=== PATIENT | female | born 1935 | race Caucasian/White ===

== ENCOUNTER 2016-05-16 12:20 | Inpatient (IN) | payer MEDICARE, OTHER ==
[~2016-05-16] VITALS: Ht 160 cm; Wt 94.3 kg
[~2016-05-16 12:20] MED LIST: ACET-62 PO; FURO20TA4 PO; LATA2.5D7 BOTH EYES; LEVO75TA58 PO; LISI-621 PO; METO-68 PO; OMEP20CA81 PO; OXYC1TAB8 PO; PRAV40TA46 PO; TRAM50TA4 PO; UBID200C8 PO; VERA360C2 PO; WARF5TAB6 PO; WARF5TAB76 PO
--- OUTSIDE RECORDS SUMMARY | 2016-05-16 12:29 | XMS REPORT | Continuity of Care Document ---
Author Author [facility] Organization [facility] Address Unknown Phone Unavailable Support Name Relationship Address Phone DARWIN HOOK MD Caregiver [facility] [address] [facility] [place] [address] LOPEZ NAVARRO DO Caregiver [address] [place] [address] AARON ESPARZA Caregiver [address] [place] [address] STACIE CARPIO MD Caregiver [address] [place] [address] [address] [place] [address] ELIZABETH OVIEDO Next Of Kin [address] [place] [id number] Insurance Providers Payer Name Policy Number Subscriber Name Relationship Medicare [id number] Juana Oviedo 16 Self [place] [id number] Juana Oviedo 16 Self Advance Directives Directive Response Recorded Date/Time Ordered Resuscitation Status Full Code 02/17/14 11:00pm Resuscitation Documents on File No 02/18/14 12:03am Chief Complaint and Reason for Visit Chief Complaint GI BLEED AND WARFARIN COAGULOPATHY Reason for Visit GI bleed Warfarin-induced coagulopathy GI bleed Hypothyroidism Chronic atrial fibrillation Pacemaker History of breast cancer Obesity (BMI 30.0-34.9) Anemia Hypertension Paroxysmal atrial fibrillation Dyslipidemia Problems Medical Problems Problem Onset Date Status GI bleed Unknown Active Warfarin-induced coagulopathy Unknown Active GI bleed Unknown Active Hypothyroidism Unknown Active Chronic atrial fibrillation Unknown Active Pacemaker Unknown Active History of breast cancer Unknown Active Obesity (BMI 30.0-34.9) Unknown Active Anemia Unknown Active Hypertension Unknown Active Paroxysmal atrial fibrillation Unknown Active Dyslipidemia Unknown Active Medications Medication Dose Route Sig Days/Qty Instructions Order Date Discontinued Date Status Aspirin 81 Mg PO BEDTIME 12/12/08 02/19/10 Discontinued Diphenhydramine Hcl 1 Ml PO NEEDED 11/16/08 12/11/08 Discontinued Ubidecarenone 200 Mg PO DAILY 12/12/08 02/19/10 Discontinued Carvedilol 25 Mg PO TWICE A DAY 11/16/08 12/11/08 Discontinued Lisinopril 2.5 Mg PO DAILY 11/16/08 12/11/08 Discontinued Guaifenesin 600 Mg PO NEEDED 11/16/08 12/11/08 Discontinued Oxybutynin Chloride 5 Mg PO DAILY 12/12/08 02/19/10 Discontinued Pravastatin Sodium 20 Mg PO DAILY 12/12/08 02/19/10 Discontinued Omeprazole 20 Mg PO DAILY 12/12/08 02/19/10 Discontinued Levothyroxine Sodium 50 Mcg PO DAILY 12/12/08 02/19/10 Discontinued Travoprost 2.5 Ml OP DAILY 12/12/08 02/19/10 Discontinued Acetaminophen 325 Mg PO NEEDED 12/12/08 02/19/10 Discontinued Multivitamins 1 Tab PO DAILY 12/12/08 02/19/10 Discontinued Lisinopril/Hydrochlorothiazide 1 Tab PO DAILY 12/12/08 02/19/10 Discontinued Meclizine Hcl 25 Mg PO FOUR TIMES DAILY 12/12/08 02/19/10 Discontinued Acetaminophen With Codeine 1 Tab PO FOUR TIMES DAILY 02/19/10 Discontinued Meclizine Hcl 1 Tab PO BEDTIME 02/19/10 07/19/10 Discontinued Aspirin 1 Tab PO DAILY 02/19/10 08/23/12 Discontinued Ubidecarenone 1 Cap PO BEDTIME 02/19/10 08/24/12 Discontinued Levothyroxine Sodium 1 Tab PO DAILY 02/19/10 Active Metoprolol Tartrate 1 Tab PO TWICE A DAY 02/19/10 08/24/12 Discontinued Multivitamins 1 Tab PO DAILY 02/19/10 Active Omeprazole 1 Cap PO DAILY 02/19/10 Active Pravastatin Sodium 1 Tab PO BEDTIME 02/19/10 08/24/12 Discontinued Cyclosporine 1 Drop OP BEDTIME 02/19/10 08/23/12 Discontinued Ergocalciferol 1 Cap PO DAILY 02/19/10 07/19/10 Discontinued Magnesium Oxide 1 Cap PO DAILY 02/19/10 07/19/10 Discontinued Zinc 1 Tab PO DAILY 02/19/10 07/19/10 Discontinued Acetaminophen 1,000 Mg PO TWICE A DAY 1000MG AT HS 07/19/10 Active [Vit B6] 1 PO DAILY 07/19/10 08/23/12 Discontinued Ubidecarenone 200 Mg PO DAILY 08/24/12 Active Calcium Carbonate/Vitamin D3 1 Udtab PO DAILY 08/24/12 Active Metoprolol Tartrate 50 Mg PO TWICE A DAY 08/24/12 Active Pravastatin Sodium 40 Mg PO BEDTIME 08/24/12 Active Verapamil Hcl 180 Mg PO BEDTIME 08/24/12 02/17/14 Discontinued Verapamil HCl 720 Mg PO DAILY 02/17/14 02/19/14 Discontinued Anastrozole DAILY 02/17/14 Active Calcium Carbonate 1,000 Mg PO CHEW DAILY 02/17/14 Active Furosemide 1 Tab PO DAILY 02/17/14 Active Latanoprost 1 Drop BOTH EYES BEDTIME 02/17/14 Active Lisinopril 10 Mg PO BEDTIME 02/17/14 02/19/14 Discontinued Cyclosporine 1 Drop BOTH EYES Q12H 02/17/14 Active Cyanocobalamin (Vitamin B-12) 2 Tab PO DAILY 02/17/14 Active Warfarin Sodium 5 Mg PO DAILY Take 1 tablet, by mouth, 1 time a day (at 5 pm). 02/17/14 02/19/14 Discontinued Verapamil HCl 240 Mg PO DAILY 30 Qty 02/19/14 Active Ferrous Sulfate 1 Tab PO GIVE WITH BREAKFAST For anemia 30 Days Active Ascorbic Acid 1 Tab PO DAILY For anemia 30 Days 02/19/14 Active Lisinopril 20 Mg PO BEDTIME 30 Days 02/19/14 Active Social History Social History Problem Response Recorded Date/Time Chewing Tobacco Status No 08/23/2012 11:53am Hx Substance Use No 02/17/2014 10:14pm Hx Alcohol Use No 02/17/2014 10:14pm Has the pt used tobacco in the last 12 months No 02/18/2014 12:06am Query Response Start Date Stop Date Smoking Status Never smoker Hospital Discharge Instructions Instructions: Care Instructions: Reason for Hospitalization: Warfarin induced coagulopathy with elevated INR I was in the hospital because (patient own words): "RECTAL BLEEDING" Discharge Diet: Heart Heathy diet Discharge Activity: As tolerated Follow Up Appointments: Jane Fleming in [address] Hook in 4 weeks Condition at time of discharge: Good Good Notify Physician If: Short of breath or not eating Condition at time of discharge: Fair Condition at time of discharge: Good Plan of Care Discharge Date 02/19/14 9:05pm Disposition 01 DISCHARGED HOME, SELF-CARE Instructions/Education Provided DI for Gastrointestinal Bleeding Prescriptions See Medications Section Functional Status Query Response Date Recorded Physical Hygiene Self February 17, 2014 10:14pm Disabilities None February 17, 2014 11:17pm Devices Used Glasses February 17, 2014 11:17pm Dressing Self February 17, 2014 10:14pm Ambulation Self February 17, 2014 10:14pm Diet Self February 17, 2014 10:14pm Mental Status Alert February 17, 2014 11:17pm Disabilities None February 17, 2014 11:17pm Devices Used Glasses February 17, 2014 11:17pm Physical Hygiene Self February 17, 2014 10:14pm Dressing Self February 17, 2014 10:14pm Ambulation Self February 17, 2014 10:14pm Diet Self February 17, 2014 10:14pm Allergies, Adverse Reactions, Alerts Allergen Type Severity Reaction Status Last Updated metoclopramide HCl Adverse Reaction Unknown MAKES ME OUT OF MY MIND Active 02/17/14 Sulfa (Sulfonamide Antibiotics) Allergy Unknown Active 02/17/14 Morphine Allergy Unknown Active 02/17/14 Hydrocodone Adverse Reaction Intermediate VOMITING Active 02/17/14 Immunizations Name Given Type Hx Influenza Vaccination Y 01/2014 "HIGHER DOSAGE" Historical Hx Pneumococcal Vaccination Y "ONE DOSE MORE THAN FIVE YEARS AGO" Historical Hx Influenza Vaccination Y 01/2014 "HIGHER DOSAGE" Historical Vital Signs Acute Vital Signs Vital Response Date/Time Temperature (Fahrenheit) 97.9 deg F (96.8 - 99.1) Temperature (Calculated Celsius) 36.88750 degrees C (36.0 - 37.3) Temperature Source Temporal Height 5 ft 3.5 in Weight 199 lb Body Mass Index 34.0 kg/m^2 Results Test Source Date Result Interp. Ref. Range Comments 25-Hydroxy Vitamin D Total November 23, 2013 10:56am 49 ng/mL - The desirable level of 25-Hydroxy Vitamin D Total(D2 + D3) is 30-74 ng/mL.A level consistently >200 is potentially toxic. Vitamin D, 25-Hydroxy performed at [facility] Reference [facility], [address] [place] [address] Stock Associate Lilly Aceves MD 25-Hydroxy Vitamin D2 November 23, 2013 10:56am <7 ng/mL - 25-Hydroxy Vitamin D3 November 23, 2013 10:56am 49 ng/mL - Activated Partial Thromboplast Time December 12, 2008 9:05am 32.7 SEC N 25-36 COM[place]U [place] 0810 Alanine Aminotransferase (ALT/SGPT) February 17, 2014 9:41pm 39 U/L N 9- 52 Albumin February 17, 2014 9:41pm 4.1 G/DL N 3.5-5.0 Albumin/Globulin Ratio February 17, 2014 9:41pm 1.4 RATIO N 1.1-2.2 Alkaline Phosphatase February 17, 2014 9:41pm 121 U/L N 38-126 Amylase Level February 17, 2014 9:41pm 140 U/L H 30-110 Anion Gap February 19, 2014 4:45am 4 MEQ/L L 5-15 Anisocytosis February 18, 2014 8:18am 1+ - Aspartate Amino Transf (AST/SGOT) February 17, 2014 9:41pm 25 U/L N 14- 36 B-Type Natriuretic Peptide November 16, 2008 8:58pm 89 PG/ML N 15-100 BUN/Creatinine Ratio February 19, 2014 4:45am 11 RATIO N 6-26 Band Neutrophils # February 18, 2014 8:18am 0.3 T/MM3 - Band Neutrophils % February 18, 2014 8:18am 3.0 % N 0-6 Basophils # (Auto) February 19, 2014 4:45am 0.0 T/MM3 N 0-0.2 Basophils # (Manual) May 06, 2010 1:35pm 0.1 T/MM3 N 0-0.2 Basophils % (Manual) May 06, 2010 1:35pm 1.0 % N 0-2 Basophils (%) (Auto) February 19, 2014 4:45am 0.3 % N 0-2 Blood Urea Nitrogen February 19, 2014 4:45am 11.0 MG/DL N 7-17 CA 27.29 November 23, 2013 10:56am 23.31 U/ML N 0-37.7 Calcium Level February 19, 2014 4:45am 9.2 MG/DL N 8.4-10.2 Calculated Osmolality February 19, 2014 4:45am 270 MOSM/KG N 261-280 Carbon Dioxide Level February 19, 2014 4:45am 26 MEQ/L N 22-30 Chemistry Specimen Hemolysis February 19, 2014 4:45am < 15 0-25 0-25 : No Hemolysis.26-70: Slight Hemolysis - can falsely elevate K and Urine Protein. 71-285: Moderate Hemolysis - can falsely elevate K, Troponin I, CA 19-9, PTH, CSF GLucose, and Urine Protein, and can falsely decrease Phenytoin. 286-999: Gross Hemolysis - can falsely elevate K, Troponin I, CA 19-9, PTH, CSF Glucose, and Urine Protine, and can falsely decrease Phenytoin. Recommend specimen recollection. Chloride Level February 19, 2014 4:45am 111 MEQ/L DH 98-107 Conjugated Bilirubin November 23, 2013 10:56am 0.00 MG/DL N 0.00-0.30 Creatinine February 19, 2014 4:45am 1.0 MG/DL N 0.7-1.2 Differential Total Cells Counted June 10, 2010 9:45am 100 % - EKG December 14, 2008 2:01pm Complete - COMMENT EKG WITH AND WITHOUT MAGNET WITHIN THIS HOUR Eosinophils # (Auto) February 19, 2014 4:45am 0.1 T/MM3 N 0-0.5 Eosinophils # (Manual) February 18, 2014 8:18am 0.1 T/MM3 N 0-0.5 Eosinophils % (Manual) February 18, 2014 8:18am 1.0 % N 0-4 Eosinophils (%) (Auto) February 19, 2014 4:45am 1.2 % N 0-4 Free Thyroxine February 19, 2010 1:45pm 1.48 NG/DL N 0.78-2.19 Globulin February 17, 2014 9:41pm 2.9 G/DL N 2.4-3.6 Glomerular Filtration Rate Calc February 19, 2014 4:45am 53 - Glucose Level February 19, 2014 4:45am 101 MG/DL N 65-110 Hematocrit February 19, 2014 4:45am 33.6 % DL 36-46 Hemoglobin February 19, 2014 4:45am 10.6 GM/DL DL 12-16 Icterus Index February 19, 2014 4:45am < 2 0-7 Immature Granulocyte # (Auto) February 19, 2014 4:45am 0.01 T/MM3 N 0.00 -0.03 Immature Granulocyte % (Auto) February 19, 2014 4:45am 0.1 % N 0.0-0.5 Lab Scanned Report December 14, 2013 3:09pm LAB TEST FORM REQUEST [id number] - Lipase February 17, 2014 9:41pm 125 U/L N 23-300 Lymphocytes # (Auto) February 19, 2014 4:45am 1.2 T/MM3 N 1-4.8 Lymphocytes # (Manual) February 18, 2014 8:18am 1.1 T/MM3 N 1-4.8 Lymphocytes % (Manual) February 18, 2014 8:18am 10.0 % L 23-45 Lymphocytes (%) (Auto) February 19, 2014 4:45am 15.9 % L 23-45 Magnesium Level November 18, 2011 10:00am 1.8 MG/DL N 1.6-2.3 Mean Corpuscular Hemoglobin February 19, 2014 4:45am 33.5 UUG N 26-34 Mean Corpuscular Hemoglobin Concent February 19, 2014 4:45am 31.5 GM/DL N 31-37 Mean Corpuscular Volume February 19, 2014 4:45am 106.3 UM3 H 80-100 Mean Platelet Volume February 19, 2014 4:45am 11.1 UM3 N 9.4-12.4 Metamyelocytes # April 22, 2010 11:05am 0.5 T/MM3 - Metamyelocytes % April 22, 2010 11:05am 3.0 % H 0-0 Monocytes # (Auto) February 19, 2014 4:45am 1.0 T/MM3 H 0-0.8 Monocytes # (Manual) February 18, 2014 8:18am 1.1 T/MM3 H 0-0.8 Monocytes % (Manual) February 18, 2014 8:18am 10.0 % H 0-9.0 Monocytes (%) (Auto) February 19, 2014 4:45am 13.0 % H 0-9.0 Neutrophils # (Auto) February 19, 2014 4:45am 5.1 T/MM3 N 1.8-7.7 Neutrophils # (Manual) February 18, 2014 8:18am 8.1 T/MM3 H 1.8-7.7 Neutrophils % (Manual) February 18, 2014 8:18am 74.0 % H 33-66 Neutrophils (%) (Auto) February 19, 2014 4:45am 69.5 % H 33-66 Phosphorus Level November 18, 2011 10:00am 3.2 MG/DL N 2.5-4.5 Platelet Count February 19, 2014 4:45am 195 T/MM3 N 130-400 Platelet Evaluation (Diff) April 20, 2011 1:10pm Few - Potassium Level February 19, 2014 4:45am 3.9 MEQ/L N 3.6-5 Prothromb Time International Ratio February 19, 2014 4:45am 3.58 H 0.81- 1.09 THERAPUTIC RANGE=2.00-3.00 FOR ANTI-THROMBOSIS THERAPUTIC RANGE=2.50- 3.50 FOR IMPLANTED VALVE RDW Standard Deviation February 19, 2014 4:45am 54.7 FL H 36.9-50.2 Reactive Lymphocytes # February 18, 2014 8:18am 0.2 T/MM3 H 0-0 Reactive Lymphocytes % February 18, 2014 8:18am 2.0 % H 0-0 Red Blood Count February 19, 2014 4:45am 3.16 M/MM3 L 4.00-5.20 Sodium Level February 19, 2014 4:45am 141 MEQ/L N 134-144 Tear Drop Cells May 06, 2010 1:35pm 1+ - Tests Not Done November 16, 2008 9:50pm Not done - Has specimen been collected/obtained? Y Thyroid Stimulating Hormone (TSH) February 19, 2010 1:45pm 1.17 MIU/ML N 0.47-4.68 Total Bilirubin February 17, 2014 9:41pm 0.80 MG/DL N 0.20-1.30 Total Protein February 17, 2014 9:41pm 7.0 G/DL N 6.3-8.2 Troponin I December 14, 2008 8:00pm 0.014 ng/ml N 0-0.12 Turbidity February 19, 2014 4:45am < 20 0-20 Unconjugated Bilirubin November 23, 2013 10:56am 0.20 MG/DL N 0.00- 1.10 Urine Amorphous Urates February 19, 2010 1:38pm Few - Has specimen been collected/obtained? Y Urine Bacteria February 17, 2014 9:51pm None seen - Has specimen been collected/obtained? Y Urine Bilirubin February 17, 2014 9:51pm 1+ H - Has specimen been collected/obtained? Y Urine Blood February 17, 2014 9:51pm 3+ H - Has specimen been collected /obtained? Y Urine Collection Type February 17, 2014 9:51pm Voided-not cc-midstr - Has specimen been collected/obtained? Y Urine Color February 17, 2014 9:51pm Natalia - Has specimen been collected/obtained? Y Urine Culture Indicated February 19, 2010 1:38pm Cult not set up - Has specimen been collected/obtained? Y Urine Glucose (UA) February 17, 2014 9:51pm Negative - Has specimen been collected/obtained? Y Urine Hyaline Casts February 17, 2014 9:51pm 5-10 /LPF - Has specimen been collected/obtained? Y Urine Ketones February 17, 2014 9:51pm Trace H - Has specimen been collected/obtained? Y Urine Leukocyte Esterase February 17, 2014 9:51pm Negative - Has specimen been collected/obtained? Y Urine Mucus February 17, 2014 9:51pm Present - Has specimen been collected/obtained? Y Urine Nitrite February 17, 2014 9:51pm Negative - Has specimen been collected/obtained? Y Urine Protein February 17, 2014 9:51pm Trace H - Has specimen been collected/obtained? Y Urine RBC February 17, 2014 9:51pm 10-20 /HPF H - Has specimen been collected/obtained? Y Urine Specific [place] February 17, 2014 9:51pm 1.020 - Has specimen been collected/obtained? Y Urine Squamous Epithelial Cells February 17, 2014 9:51pm None seen - Has specimen been collected/obtained? Y Urine Turbidity February 17, 2014 9:51pm Sl cloudy - Has specimen been collected/obtained? Y Urine Urobilinogen February 17, 2014 9:51pm 1.0 EU/DL - Has specimen been collected/obtained? Y Urine WBC February 17, 2014 9:51pm 0-1 /HPF - Has specimen been collected/obtained? Y Urine pH February 17, 2014 9:51pm 6.0 - Has specimen been collected/ obtained? Y White Blood Count February 19, 2014 4:45am 7.3 T/MM3 N 4.5-11.0 Procedures Procedure Status Date Provider(s) DRAIN/INJECT JOINT/BURSA completed 02/01/14 JERRY MACIAS MD NEEDLE LOCALIZATION BY XRAY completed 02/01/14"INJECTION, METHYLPREDNISOLONE ACETATE, 80 MG" completed 02/01/14"LOW OSMOLAR CONTRAST MATERIAL, 300-399 MG/ML IODINE C completed Encounters Encounter Location Date/Time Discharged Inpatient [facility] 02/17/14 10:46pm Registered Clinic [facility] 02/01/14 9:44am Registered Clinic [facility] 12/14/13 8:46am Registered Clinic [facility] 12/07/13 8:22am Registered Clinic [facility] 11/23/13 11:01am Recent Diagnosis GI bleed Warfarin-induced coagulopathy GI bleed Hypothyroidism Chronic atrial fibrillation Pacemaker History of breast cancer Obesity (BMI 30.0-34.9) Anemia Hypertension Paroxysmal atrial fibrillation Dyslipidemia
--- OUTSIDE RECORDS SUMMARY | 2016-05-16 12:32 | XMS REPORT | Continuity of Care Document ---
Author Author [facility] Organization [facility] Address Unknown Phone Unavailable Support Name Relationship Address Phone JONATHAN WALLACE DO Caregiver [address] [place] [address] Unavailable KARIME NY DO Caregiver [address] [place] [address] Unavailable ELIZABETH OVIEDO Next Of Kin [address] [place] [id number] Insurance Providers Guarantor ArtemioJuana Address [address] [place] [address] Email DENIED 05-09-16 Payer [place] Policy Number [id number] Subscriber's Name Kat Oviedonelson Resendiz Relationship 18 Self Group Number PLANE Effective Date 03 Payer Medicare Policy Number [id number] Subscriber's Name Kat Oviedojorie Astrid Relationship 18 Self Effective Date 98 Advance Directives Directive Response Recorded Date/Time Advanced Directives Type None 05/09/16 11:55am Chief Complaint and Reason for Visit Chief Complaint Neck Pain Reason for Visit Neck pain on left side Problems Active Problems Medical Problem Onset Date Status Chronic atrial fibrillation Unknown Chronic Degenerative arthritis of left knee Unknown Dyslipidemia Unknown Chronic History of breast cancer Unknown Chronic Hypertension Unknown Acute Hypothyroidism Unknown Chronic LATISHA (obstructive sleep apnea) Unknown Obesity (BMI 30.0-34.9) Unknown Chronic Pacemaker Unknown Chronic Past Problems Medical Problem Onset Date Anemia Unknown Contusion Unknown Degenerative arthritis of right knee Unknown GI bleed Unknown GI bleed Unknown Hematoma of leg Unknown Neck pain on left side Unknown Paroxysmal atrial fibrillation Unknown Warfarin-induced coagulopathy Unknown Medications Current Home Medications Medication Dose Units Route Directions Days Qty Instructions Start Date Acetaminophen 500 Mg Tablet 500 Mg Oral Every 6 Hours as needed for Pain 05/09/16 Furosemide 20 Mg Tablet 20-40 Mg Oral Daily 05/09/16 Latanoprost 2.5 Ml Drops 1 Drop Both Eyes Bedtime 02/17/14 Levothyroxine Sodium 75 Mcg Tablet 75 Mcg Oral Daily 02/19/10 Lisinopril 20 Mg Tablet 40 Mg Oral Daily 01/15/16 Metoprolol Tartrate 50 Mg Tablet 50 Mg Oral Twice A Day 08/24/12 Omeprazole (Prilosec) 20 Mg Capsule.dr 20 Mg Oral Daily 02/19/10 Oxycodone Hcl/Acetaminophen (Percocet 5-325 Mg Tablet) 5-325 Tablet 1-2 Tab Oral Every 4-6 Hours Prn as needed for Pain 20 Tablet Take 1 tablet, by mouth, every 4 hours as needed for pain. 05/09/16 Pravastatin Sodium 40 Mg Tablet 60 Mg Oral Bedtime 08/24/12 Tramadol Hcl 50 Mg Tablet 50-100 Mg Oral Q6h/0300,0900,1500,2100 as needed for Pain 05/09/16 Ubidecarenone (Co Q-10) 200 Mg Capsule 200 Mg Oral Daily 08/24/12 Verapamil Hcl 360 Mg Capsule 360 Mg Oral Daily 06/14/15 Warfarin Sodium (Coumadin) 5 Mg Tablet 10 Mg Oral Twice A Week WED & ALBERT 06/14/15 Warfarin Sodium 5 Mg Tablet 5 Mg Oral 5 Times A Week SUN,MON,WED,FRI ,SAT 05/09/16 Past Home Medications Medication Directions Ordered Status Acetaminophen (Tylenol) 500 Mg Tablet, 1000 Mg Oral Twice A Day 07/19/10 Discontinued Acetaminophen (Tylenol) 325 Mg Tablet, 325 Mg Oral As Needed 12/12/08 Discontinued Acetaminophen With Codeine (Tylenol-Codeine #3 Tablet) 1 Tab Tablet, 1 Tab Oral Four Times Daily 02/19/10 Discontinued Aspirin 81 Mg Tablet, 1 Tab Oral Daily 02/19/10 Discontinued Aspirin (Apoorva) 81 Mg Tablet.dr, 81 Mg Oral Bedtime 12/12/08 Discontinued Carvedilol (Coreg) 25 Mg Tablet, 25 Mg Oral Twice A Day 11/16/08 Discontinued Cyclosporine (Restasis) 32 Ea Droperette, 1 Drop Ophthalmic Bedtime 02/19/10 Discontinued Diphenhydramine Hcl (Benadryl) 1 Ml Liquid, 1 Ml Oral As Needed 11/16/08 Discontinued Ergocalciferol (Vitamin D) 50,000 Unit Capsule, 1 Cap Oral Daily 02/19/10 Discontinued Guaifenesin (Mucinex) 600 Mg Tablet.sa, 600 Mg Oral As Needed 11/16/08 Discontinued Levothyroxine Sodium (Synthroid) 50 Mcg Tablet, 50 Mcg Oral Daily 12/12/08 Discontinued Lisinopril 10 Mg Tablet, 10 Mg Oral Bedtime 02/17/14 Discontinued Lisinopril 2.5 Mg Tablet, 2.5 Mg Oral Daily 11/16/08 Discontinued Lisinopril/Hydrochlorothiazide (Lisinopril-Hctz 12/24.5 Tab) 1 Tab Tablet, 1 Tab Oral Daily 12/12/08 Discontinued Magnesium Oxide (Magnesium) 500 Mg Capsule, 1 Cap Oral Daily 02/19/10 Discontinued Meclizine Hcl (Antivert) 25 Mg Tablet, 1 Tab Oral Bedtime 02/19/10 Discontinued Meclizine Hcl 25 Mg Tablet, 25 Mg Oral Four Times Daily 12/12/08 Discontinued Metoprolol Tartrate 25 Mg Tablet, 1 Tab Oral Twice A Day 02/19/10 Discontinued Multivitamins (Vitamin A Day) 1 Tab Tablet, 1 Tab Oral Daily 12/12/08 Discontinued Omeprazole (Prilosec) 20 Mg Capsule.dr, 20 Mg Oral Daily 12/12/08 Discontinued Oxybutynin Chloride 5 Mg Tablet, 5 Mg Oral Daily 12/12/08 Discontinued Pravastatin Sodium 20 Mg Tablet, 1 Tab Oral Bedtime 02/19/10 Discontinued Pravastatin Sodium (Pravachol) 20 Mg Tablet, 20 Mg Oral Daily 12/12/08 Discontinued Prednisone 20 Mg Tablet, 2 Tab Oral Twice A Day 06/14/15 Discontinued Travoprost (Travatan Z) 2.5 Ml Drops, 2.5 Ml Ophthalmic Daily 12/12/08 Discontinued Ubidecarenone (Coq-10) 100 Mg Capsule, 1 Cap Oral Bedtime 02/19/10 Discontinued Ubidecarenone (Co Q-10) 200 Mg Capsule, 200 Mg Oral Daily 12/12/08 Discontinued Verapamil Hcl 360 Mg Capsule, 720 Mg Oral Daily 02/17/14 Discontinued Verapamil Hcl (Verapamil Er) 180 Mg Tablet.er, 180 Mg Oral Bedtime 08/24/12 Discontinued Vit B6 , 1 Oral Daily 07/19/10 Discontinued Warfarin Sodium 5 Mg Tablet, 5 Mg Oral Daily 02/17/14 Discontinued Zinc 50 Mg Tablet, 1 Tab Oral Daily 02/19/10 Discontinued Social History Social History Problem Response Recorded Date/Time Onset Date Status Chewing Tobacco Status No 08/23/2012 11:53am Not Applicable Not Applicable Hx Substance Use No 05/09/2016 12:35pm Not Applicable Not Applicable Hx Alcohol Use Y SOCIAL 05/09/2016 12:35pm Not Applicable Not Applicable Has the pt used tobacco in the last 12 months No 01/23/2016 7:30am Not Applicable Not Applicable Query Response Start Date Stop Date Smoking Status Never smoker Hospital Discharge Instructions No hospital discharge instructions. Plan of Care Discharge Date 05/09/16 4:37pm Disposition 01 DISCHARGED HOME, SELF-CARE Condition at Discharge Improved Instructions/Education Provided Musculoskeletal Pain (ED) Acute Neck Pain (ED) Prescriptions See Medication Section Referrals KARIME NY DO Address: [address] [phone] Additional Instructions/Education Your neck pain is musculoskeletal in nature. You may take Percocet 5/325mg tab 1 to 2 tabs every 4-6 hours as needed for pain. This medication may cause drowsiness so avoid driving, operating heavy machinery or drinking alcohol while taking. This medication may cause constipation so you may need to take a stool softener. Do not take tramadol in addition to Percocet. You may use heat to your neck and shoulder muscles to help with pain. It may take several days for your symptoms to resolve, if they are not improving follow with your PCP next week. Follow treatment plan. Care Plan and Goals Physician Care Plan Problem: Left sided neck pain Goal: Follow up with primary care provider as discussed Instructions: Take medications and follow care plan as discussed/written Functional Status No functional status results. Allergies, Adverse Reactions, Alerts Allergen Type Severity Reaction Status Last Updated metoclopramide HCl Adverse Reaction Unknown AGITATED, ANXIOUS Active 01/14 Sulfa (Sulfonamide Antibiotics) Adverse Reaction Unknown STOMACH HURTS Active 01/15/16 Morphine Allergy Unknown HALLUCINATION Active 01/15/16 Hydrocodone Adverse Reaction Intermediate VOMITING Active 06/21/15 Sulfamethoxazole Adverse Reaction Unknown STOMACH HURTS Active 01/15/16 Trimethoprim Adverse Reaction Unknown STOMACH HURTS Active 01/15/16 Immunizations Query Response on File Recorded Date/Time Hx Influenza Vaccination Y DEC 2015 01/23/16 7:30am Hx Pneumococcal Vaccination 201501/23/16 7:30am Hx Influenza Vaccination Y DEC 2015 01/23/16 7:30am Influenza Vaccine Hx DEC 2015 05/09/16 12:35pm Vital Signs Acute Vital Signs Vital Response Date/Time Temperature (Fahrenheit) 98.0 deg F (96.8 - 99.1) 05/09/2016 4:37pm Temperature (Calculated Celsius) 36.91639 degrees C (36.0 - 37.3) 05/09/2016 4:37pm Pulse Rate (adult) 77 bpm (60 - 100) 05/09/2016 4:37pm Respiratory Rate 15 breaths/min (10 - 20) 05/09/2016 4:37pm O2 Sat by Pulse Oximetry 99 % (90 - 100) 05/09/2016 4:37pm Blood Pressure 166/74 mm Hg 05/09/2016 4:37pm Height (Feet) 5 feet 05/09/2016 11:55am Height (Inches) 3.00 inches 05/09/2016 11:55am Weight (Kilograms) 120.000 kg 05/09/2016 11:55am Body Mass Index (BMI) 46.0 05/09/2016 11:55am Results Laboratory Results Test Name Result Units Flags Reference Collection Date/Time Result Date/ Time Comments Unconjugated Bilirubin 0.20 MG/DL 0.00-1.10 01/14/2016 8:20am 2015 8:59am Conjugated Bilirubin 0.00 MG/DL 0.00-0.30 01/14/2016 8:20am 01/14/2016 8:59am Carcinoembryonic Antigen 24.80 UG/L H 0-3.0 02/25/2016 10:34am 2015 11:20am CA 27.29 64.68 U/ML H 0-37.7 02/25/2016 10:34am 02/25/2016 12:12pm Neutrophils (%) (Auto) 64.0 % 33-66 04/29/2016 2:50pm 04/29/2016 2: 54pm Lymphocytes (%) (Auto) 21.1 % L 23-45 04/29/2016 2:50pm 04/29/2016 2: 54pm Monocytes (%) (Auto) 11.7 % H 0-9.0 04/29/2016 2:50pm 04/29/2016 2:54pm Eosinophils (%) (Auto) 2.9 % 0-4 04/29/2016 2:50pm 04/29/2016 2:54pm Basophils (%) (Auto) 0.2 % 0-2 04/29/2016 2:50pm 04/29/2016 2:54pm Immature Granulocyte % (Auto) 0.1 % 0.0-0.5 04/29/2016 2:50pm 2016 2:54pm Absolute Neutrophils (auto) 5.6 T/MM3 1.8-7.7 04/29/2016 2:50pm 2016 2:54pm Absolute Lymphocytes (auto) 1.8 T/MM3 1-4.8 04/29/2016 2:50pm 2016 2:54pm Absolute Monocytes (auto) 1.0 T/MM3 H 0-0.8 04/29/2016 2:50pm 2016 2:54pm Absolute Eosinophils (auto) 0.3 T/MM3 0-0.5 04/29/2016 2:50pm 2016 2:54pm Absolute Basophils (auto) 0.0 T/MM3 0-0.2 04/29/2016 2:50pm 04/29/2016 2:54pm Absolute Immature Granulocyte (auto 0.01 T/MM3 0.00-0.03 04/29/2016 2: 50pm 04/29/2016 2:54pm Total Bilirubin 0.40 MG/DL 0.20-1.30 04/29/2016 2:50pm 04/29/2016 3: 06pm Alkaline Phosphatase 133 U/L H 38-126 04/29/2016 2:50pm 04/29/2016 3: 06pm Total Protein 7.5 G/DL 6.3-8.2 04/29/2016 2:50pm 04/29/2016 3:06pm Albumin 4.1 G/DL 3.5-5.0 04/29/2016 2:50pm 04/29/2016 3:06pm Globulin 3.4 G/DL 2.4-3.6 04/29/2016 2:50pm 04/29/2016 3:06pm Albumin/Globulin Ratio 1.2 RATIO 1.1-2.2 04/29/2016 2:50pm 04/29/2016 3 :06pm Aspartate Amino Transf (AST/SGOT) 28 U/L 14-36 04/29/2016 2:50pm 2016 3:06pm Alanine Aminotransferase (ALT/SGPT) 27 U/L 9-52 04/29/2016 2:50pm 04/29 3:06pm Vitamin B12 Level 750 PG/ML 239-931 04/29/2016 2:50pm 05/01/2016 3: 18am Folate > 20.0 NG/ML H 2.76-20 04/29/2016 2:50pm 05/01/2016 3:18am NORMAL ADULT RANGE: 2.76->20 ng/mL Urine Microalbumin 12.0 MG/L 0-17 04/29/2016 2:50pm 04/30/2016 1:24am Urine Collection Type CLEANCATCH-MIDSTREAM 04/29/2016 2:50pm 2016 3:05pm Urine Color YELLOW YELLOW 04/29/2016 2:50pm 04/29/2016 3:05pm Urine Turbidity CLEAR CLEAR 04/29/2016 2:50pm 04/29/2016 3:05pm Urine Specific [place] 1.015 1.015-1.025 04/29/2016 2:50pm 2016 3:05pm Urine pH 6.0 5.0-8.0 04/29/2016 2:50pm 04/29/2016 3:05pm Urine Leukocyte Esterase NEGATIVE NEGATIVE 04/29/2016 2:50pm 2016 3:05pm Urine Nitrite NEGATIVE NEGATIVE 04/29/2016 2:50pm 04/29/2016 3:05pm Urine Protein NEGATIVE NEGATIVE 04/29/2016 2:50pm 04/29/2016 3:05pm Urine Glucose (UA) NEGATIVE NEGATIVE 04/29/2016 2:50pm 04/29/2016 3: 05pm Urine Ketones NEGATIVE NEGATIVE 04/29/2016 2:50pm 04/29/2016 3:05pm Urine Urobilinogen 0.2 EU/DL NORMAL 04/29/2016 2:50pm 04/29/2016 3: 05pm Urine Bilirubin NEGATIVE NEGATIVE 04/29/2016 2:50pm 04/29/2016 3: 05pm Urine Blood NEGATIVE NEGATIVE 04/29/2016 2:50pm 04/29/2016 3:05pm Urinalysis Comment MICROSCOPIC NOT IND. 04/29/2016 2:50pm 2016 3:05pm Blood Smear Pathologist Review SENT FOR REVIEW 04/29/2016 2:50pm 3:22pm White Blood Count 11.6 T/MM3 H 4.5-11.0 05/09/2016 1:40pm 05/09/2016 1: 46pm Red Blood Count 3.72 M/MM3 L 4.00-5.20 05/09/2016 1:40pm 05/09/2016 1: 46pm Hemoglobin 11.9 GM/DL L 12-16 05/09/2016 1:40pm 05/09/2016 1:46pm Hematocrit 37.3 % 36-46 05/09/2016 1:40pm 05/09/2016 1:46pm Mean Corpuscular Volume 100.3 UM3 H 80-100 05/09/2016 1:40pm 05/09/2016 1:46pm Mean Corpuscular Hemoglobin 32.0 UUG 26-34 05/09/2016 1:40pm 2016 1:46pm Mean Corpuscular Hemoglobin Concent 31.9 GM/DL 31-37 05/09/2016 1:40pm 05/09/2016 1:46pm RDW Standard Deviation 48.4 FL 36.9-50.2 05/09/2016 1:40pm 05/09/2016 1 :46pm Platelet Count 283 T/MM3 130-400 05/09/2016 1:40pm 05/09/2016 1:46pm Mean Platelet Volume 10.1 UM3 9.4-12.4 05/09/2016 1:40pm 05/09/2016 1: 46pm Neutrophils % (Manual) 76.0 % H 33-66 05/09/2016 1:40pm 05/09/2016 2: 06pm Lymphocytes % (Manual) 12.0 % L 23-45 05/09/2016 1:40pm 05/09/2016 2: 06pm Monocytes % (Manual) 11.0 % H 0-9.0 05/09/2016 1:40pm 05/09/2016 2:06pm Eosinophils % (Manual) 1.0 % 0-4 05/09/2016 1:40pm 05/09/2016 2:06pm Absolute Neutrophils (Manual) 8.8 T/MM3 H 1.8-7.7 05/09/2016 1:40pm 2:06pm Lymphocytes # (Manual) 1.4 T/MM3 1-4.8 05/09/2016 1:40pm 05/09/2016 2: 06pm Monocytes # (Manual) 1.3 T/MM3 H 0-0.8 05/09/2016 1:40pm 05/09/2016 2: 06pm Eosinophils # (Manual) 0.1 T/MM3 0-0.5 05/09/2016 1:40pm 05/09/2016 2: 06pm Red Cell Morphology Comment NORMAL 05/09/2016 1:40pm 05/09/2016 2: 06pm Icterus Index < 2 0-7 05/09/2016 1:40pm 05/09/2016 1:54pm Chemistry Specimen Hemolysis < 15 0-25 05/09/2016 1:37pm 05/09/2016 2 :27pm 0-25: Specimen Exhibited No Hemolysis. Turbidity < 20 0-20 05/09/2016 1:40pm 05/09/2016 1:54pm Sodium Level 136 MEQ/L 134-144 05/09/2016 1:40pm 05/09/2016 1:54pm Potassium Level 4.0 MEQ/L 3.6-5 05/09/2016 1:40pm 05/09/2016 1:54pm Chloride Level 101 MEQ/L 98-107 05/09/2016 1:40pm 05/09/2016 1:54pm Carbon Dioxide Level 25 MEQ/L 22-30 05/09/2016 1:40pm 05/09/2016 1: 54pm Anion Gap 10 MEQ/L 5-15 05/09/2016 1:40pm 05/09/2016 1:54pm Blood Urea Nitrogen 17.0 MG/DL 7-17 05/09/2016 1:40pm 05/09/2016 1: 54pm Creatinine 0.9 MG/DL 0.7-1.2 05/09/2016 1:40pm 05/09/2016 1:54pm BUN/Creatinine Ratio 19 RATIO 6-26 05/09/2016 1:40pm 05/09/2016 1:54pm Glomerular Filtration Rate Calc 60 05/09/2016 1:40pm 05/09/2016 1: 54pm Glucose Level 131 MG/DL H 65-110 05/09/2016 1:40pm 05/09/2016 1:54pm Calculated Osmolality 266 MOSM/KG 261-280 05/09/2016 1:40pm 05/09/2016 1:54pm Calcium Level 9.9 MG/DL 8.4-10.2 05/09/2016 1:40pm 05/09/2016 1:54pm Troponin I < 0.012 ng/ml 0-0.12 05/09/2016 1:37pm 05/09/2016 2:27pm Troponin values with a difference of 55% increase from orginal troponin value represent a true biological DELTA value. (%increase Calc=Orginal Troponin value, divided by subsequent Troponin value, multiplied by 100) Microbiology Results Procedure Source Organism/Result Collection Date/Time Result Date/Time Result Status Urine Culture Urine, Clean Catch-Midstream ESCHERICHIA COLI 04/29/2016 2: 50pm 05/01/2016 6:26am Final Procedures Procedure Status Date Provider(s) Hepatic function panel Completed 12/02/15 Immunoassay tumor ca 15-3 Completed 12/02/15 Hepatic function panel Completed 12/02/15 Immunoassay tumor ca 15-3 Completed 12/02/15 Routine venipuncture Completed 02/25/16 Carcinoembryonic antigen Completed 02/25/16 Immunoassay tumor ca 15-3 Completed 02/25/16 Pet image w/ct skull-thigh Completed 04/01/16 [id number]"FLUORODEOXYGLUCOSE F-18 FDG, DIAGNOSTIC, PER STUDY DO Completed X-ray exam thorac spine 3vws Completed 03/23/16 Ct chest spine w/o dye Completed 04/03/16 Bone imaging whole body Completed 04/07/16 Bone imaging (3d) Completed 04/07/16 [id number]"TECHNETIUM TC-99M MEDRONATE, DIAGNOSTIC, PER STUDY DO Completed Routine venipuncture Completed 04/29/16 Chest x-ray 2vw frontal&latl Completed 04/29/16 X-ray exam hips bi 5/> views Completed 04/29/16 Comprehen metabolic panel Completed 04/29/16 Urinalysis auto w/o scope Completed 04/29/16 Microalbumin quantitative Completed 04/29/16 Vitamin b-12 Completed 04/29/16 Assay of folic acid serum Completed 04/29/16 Assay of troponin quant Completed 04/29/16 Complete cbc w/auto diff wbc Completed 04/29/16 Culture aerobic identify Completed 04/29/16 Urine culture/colony count Completed 04/29/16 Microbe susceptible veronica Completed 04/29/16 Encounters Encounter Location Arrival/Admit Date Discharge/Depart Date Attending Provider Departed Emergency Room [facility] 05/09/16 11:54am 05/09/16 4: 37pm JONATHAN WALLACE DO Registered [facility] 04/29/16 2:20pm KARIME NY DO Registered [facility] 04/07/16 9:28am LOUISA BOBBY Registered [facility] 04/03/16 3:37pm KARIME NY DO Registered [facility] 04/01/16 7:03am MARIXA LIU MD Registered [facility] 03/23/16 1:53pm KARIME NY DO Discharged Recurring [facility] 02/25/16 10:25am 03/14/16 11: 53pm MARIXA LIU MD Discharged Recurring [facility] 12/02/15 8:30am 02/28/16 11:59pm MARIXA LIU MD Recent Diagnosis
--- OUTSIDE RECORDS SUMMARY | 2016-05-16 12:32 | XMS REPORT | Continuity of Care Document ---
Author Author [facility] Organization [facility] Address Unknown Phone Unavailable Allergies Medications Medication Packaging Start Date Stop Date Route Dosage Sig vitamin B12 500 mcg-folic acid 400 mcg tablet 07/05/2015 500-400 mcg 1 (one) by Oral route daily verapamil ER 360 mg 24 hr capsule,extended release 07/05/2015 360 mg take 1 (one) by Oral route daily latanoprost 0.005 % eye drops 07/05/2015 0.005 % 1 (one) daily levothyroxine 75 mcg tablet 07/05/2015 75 mcg 1 (one) by Oral route daily Coumadin 5 mg tablet 07/05/2015 5 mg take 1 (one) Tablet by Oral route daily anastrozole 1 mg tablet 07/05/2015 07/05/2015 1 mg take 1 ( one) Tablet by Oral route daily acetaminophen 500 mg tablet 07/05/2015 500 mg take 1 (one) Tablet by Oral route daily Problems Date Dx Coded Attending Type Code Diagnosis Diagnosed By 07/31/2015 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 ROD CAZARES MD 07/31/2015 G47.33 Obstructive sleep apnea (adult) (pediatric) ROD CAZARES MD 10/09/2015 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 ROD CAZARES MD 10/09/2015 G47.33 Obstructive sleep apnea (adult) (pediatric) ROD CAZARES MD Procedures Code [place] [id number] Office or other outpatient visit for the evaluation and management of a new patient, which requires ROD CAZARES MD 09/03/2015 49041 Office or other outpatient visit for the evaluation and management of an established patient, which ROD CAZARES MD 10/09/2015 [id number] Office or other outpatient visit for the evaluation and management of an established patient, which ROD CAZARES MD 10/09/2015 73560 Office or other outpatient visit for the evaluation and management of a new patient, which requires ROD CAZARES MD 10/15/2015 93161 Office or other outpatient visit for the evaluation and management of an established patient, which ROD CAZARES MD 11/11/2015 05742 Office or other outpatient visit for the evaluation and management of an established patient, which ROD CAZARES MD 12/24/2015 Results Encounters ACCT No. Visit Date/Time Discharge Status Pt. Type Provider Facility Loc./Unit Complaint [id number] 03/23/2013 12:47:00 03/23/2013 23 :59:59 [facility] [id number] 01/05/2013 12:51:00 01/05/2013 23 :59:[address] [facility] Outpatient
--- NOTE | 2016-05-16 12:38 | NUR ---
PROVIDER Mer MEJIA [employer]EIGN BANKNOTE TELLER IN TO SEE PATIENT.
[2016-05-16] MEDS ORDERED: PRAV80TA23 PO (12:44)
[2016-05-16] MEDS ORDERED: OXYC-541 PO (12:44)
[2016-05-16] MEDS ORDERED: LISI40TA4 PO (12:44)
[2016-05-16] MEDS ORDERED: KETOROLAC 30mg/ml INJECTION IV ONE (12:45)
[2016-05-16] MEDS ORDERED: NORMAL SALINE 1,000 ML IV ONE (12:45)
--- NOTE | 2016-05-16 12:47 | ERPDOC ---
Departure Disposition Decision Date: May 16, 2016 Disposition Decision Time: 17:15 Disposition: 02 TO [facility] Impression Impression Impression: Primary Impression: Colitis Severity: Moderate Condition: Stable Seen By: Mid-level only Referrals: KARIME NY DO (Family) Problems/Meds/Labs Reviewed?: Yes Medications reviewed and manag: Yes Follow up care ordered?: Yes Mental Status: Alert HPI - Abdominal Pain General Chief Complaint: Nausea,Vomiting,Diarrhea Stated Complaint: N/V/D Time Seen by Provider: 12:30 Source: patient History/Exam Limitations: no limitations HPI - Abdominal Pain Initial Comments She has had some trouble with constipation for the last week. Has had very small BM until this morning. Her gave her an enema and she states that she did have fair results from this. She then had onset of abdominal pain and tightness on the left lower quadrant. Has been taking Senna every day for the last week. Does feel like she has not been voiding as much as she normally does and is concerned about this. Has had some mild nausea and she did make herself vomit at home today. Denies any fever or chills. Was recently diagnosed with bone cancer in her spine, has history of breast cancer. Occurred At: home Onset: Gradual Duration: 1 week Quality: sharpness Location: LLQ Radiation: no radiation Activities at Onset: none Modifying Factors: IMPROVES WITH: defecating Associated Symptoms: nausea/vomiting, DENIES: back pain, chest pain, diaphoresis, fatigue, fever/chills, headache, heartburn, rash, shortness of breath, swelling/mass in abdomen, syncope, weakness Hx of Similar Symptoms: No Allergies: Coded Allergies: morphine (Verified Allergy, Unknown, HALLUCINATION, 05/16/16) hydrocodone (Verified Adverse Reaction, Intermediate, VOMITING, 05/16/16) Sulfa (Sulfonamide Antibiotics) (Verified Adverse Reaction, Unknown, STOMACH HURTS, 05/16/16) metoclopramide HCl (Verified Adverse Reaction, Unknown, AGITATED, ANXIOUS , 05/16/16) sulfamethoxazole (Unverified Adverse Reaction, Unknown, STOMACH HURTS, 05/16) trimethoprim (Unverified Adverse Reaction, Unknown, STOMACH HURTS, 05/16/16) Past History Past Medical History Metabolic: cancer, hypertension, hypothyroidism ENMT: cataracts, glaucoma, sleep apnea Cardiac: A-fib GI: GERD, gallbladder disease Female: renal insufficiency Neurological: headaches Musculoskeletal: osteoarthritis Surgical History General: gallbladder, other Cardiac: cardiac cath, pacemaker Reproductive/: Family History Family PMH: FOUND: [place], diabetes, hypertension Vaccines Hx Influenza Vaccination: Yes (DEC 2015) Hx Pneumococcal Vaccination: Yes (2016) Social History Does patient use chewing tobac: No Second Hand Exposure: No Substance Use Type: does not use Sexuality: male partner Review of Systems Constitutional Constitutional: DENIES: chills, dizziness, fatigue, fever, weakness ENMT Sinuses: DENIES: congestion, rhinorrhea Mouth/Throat: DENIES: painful swallowing, scratchy throat, sore throat Cardiovascular Cardiac: DENIES: chest pain, orthopnea Rhythm/Rate: DENIES: irregular beat, palpitations Pulmonary Respiratory: DENIES: cough, dyspnea, sputum, tachypnea GI Upper Abdomen: nausea, vomiting, DENIES: pain Lower Abdomen: constipation, pain, DENIES: blood in stool, diarrhea General: DENIES: dysuria, frequency, urgency Integumentary Skin: DENIES: rash Neurological General: DENIES: headache, numbness, tingling, weakness Physical Exam General General Nourishment: well nourished, well developed, appears stated age, no acute distress, adult General Body Habitus: well groomed Vitals and Pain First Documented Vital Signs Date Time Temp Pulse Resp B/P Pulse Ox O2 Delivery O2 Flow Rate FiO2 05/16/16 12:20 98.1 106 24 180/101 94 Room Air Weight: Kilograms: 88.000 Height (feet): 5 Height (inches): 3.50 Triage Pain Scale: RN VS reviewed by Provider: Yes Normal Exams: Neck: Full range of motion, without adenopathy, JVD, bruits or thyromegaly Chest/Resp: Clear all maradiaga, with good airflow, and symmetry bilaterally CV: Regular rate and rhythm, without murmur or gallop, Pulses 2+ all extremities, capillary refill, <2 seconds all ext., no pedal edema noted Abdomen: Bowel sounds positive, non-distended, no hepatosplenomegaly, masses or bruits noted Lymphatic: No lymphadenopathy, or lymphedema noted Integumentary: No rashes, hives, or bruising noted Neurologic: Patient is alert, and oriented Psychiatric: Patient exhibits, appropriate attention, emotion and affect ENMT (brief) ENMT Brief: FOUND: mucosa moist Abdomen Inspection: NOT FOUND: distention Palpation: FOUND: involuntary guarding, soft, tender (TTP on the left upper and lower quadrant), NOT FOUND: rebound, voluntary guarding Differential Diagnoses Considering: Bowel Obstruction, Constipation, Diverticulitis, Gastroenteritis, Hepatitis, Neoplasm, Pancreatitis, UTI Progress Results/Orders Orders Procedure Category Date Status Time Cbc W/Auto LAB 05/16/16 Complete Diff-Reflex Manual Cmp - Comprehensive LAB 05/16/16 Complete Metabolic Lipase LAB 05/16/16 Complete Iv Lock (Ed Only) EDM 05/16/16 Transmitted 12:41 Ketorolac (Toradol) PHA 05/16/16 Complete 12:45 Normal Saline (Normal PHA 05/16/16 Complete Saline Iv) 12:45 Ct Abd/Pelvis CT 05/16/16 Taken W/Contrast Only 13:45 UA, LAB 05/16/16 Complete Dip&Micro(Complete) & 13:40 Iohexol (Omnipaque) PHA 05/16/16 Complete 14:39 Normal Saline (Ns) PHA 05/16/16 Complete 14:39 Saline Flush (Iv PHA 05/16/16 Complete Flush) 14:39 Hydromorphone PHA 05/16/16 Complete (Dilaudid) 16:45 Place In Facility As: ADMIT 05/16/16 Transmitted Methylnaltrexone PHA 05/16/16 Logged (Relistor) 17:15 Fleet Phospho-Soda PHA 05/16/16 Logged Enema (Fleet Enema Sa 17:15 Metronidazole Ivpb PHA 05/16/16 In Process (Flagyl I.V.) 17:30 Npo: Sips And Chips DIET 05/17/16 Transmitted Breakfast Clear Liquid Diet DIET 05/17/16 Transmitted Breakfast Normal Saline (Normal PHA 05/16/16 Logged Saline Iv) 17:17 Ondansetron Inj PHA 05/16/16 Logged (Zofran) 17:30 Pantoprazole PHA 05/17/16 Logged (Protonix Iv) 09:00 Urinary Catheter ANGY 05/16/16 In Process Insert/Manage 17:17 Compression Type Scd/ ANGY 05/16/16 In Process Kelechi Hose 17:17 Ketorolac (Toradol) PHA 05/16/16 Logged 17:30 Catheter Needs ANGY 05/17/16 In Process Assessment 06:00 Ciprofloxacin (Cipro PHA 05/16/16 Logged I.V.) 21:00 Metronidazole Ivpb PHA 05/16/16 Logged (Flagyl I.V.) 21:00 Lab Results Laboratory Tests Test 05/16/16 12:58 05/16/16 13:40 White Blood Count 18.2T/MM3 Red Blood Count 3.88M/MM3 Hemoglobin 12.5GM/DL Hematocrit 38.4% Mean Corpuscular Volume 99.0UM3 Mean Corpuscular Hemoglobin 32.2UUG Mean Corpuscular Hemoglobin Concent 32.6GM/DL RDW Standard Deviation 48.9FL Platelet Count 286T/MM3 Mean Platelet Volume 10.5UM3 Immature Granulocyte % (Auto) % Neutrophils (%) (Auto) % Lymphocytes (%) (Auto) % Monocytes (%) (Auto) % Eosinophils (%) (Auto) % Basophils (%) (Auto) % Absolute Immature Granulocyte (auto T/MM3 Absolute Neutrophils (auto) T/MM3 Absolute Lymphocytes (auto) T/MM3 Absolute Monocytes (auto) T/MM3 Absolute Eosinophils (auto) T/MM3 Absolute Basophils (auto) T/MM3 Neutrophils % (Manual) 78.0% Band Neutrophils % 9.0% Lymphocytes % (Manual) 5.0% Monocytes % (Manual) 8.0% Absolute Neutrophils (Manual) 14.2T/MM3 Band Neutrophils # 1.6T/MM3 Lymphocytes # (Manual) 0.9T/MM3 Monocytes # (Manual) 1.5T/MM3 Red Cell Morphology Comment Normal Turbidity < 20 Sodium Level 136MEQ/L Potassium Level 4.3MEQ/L Chloride Level 102MEQ/L Carbon Dioxide Level 21MEQ/L Anion Gap 13MEQ/L Blood Urea Nitrogen 24.0MG/DL Creatinine 1.0MG/DL Glomerular Filtration Rate Calc 53 BUN/Creatinine Ratio 24RATIO Glucose Level 182MG/DL Calculated Osmolality 271MOSM/KG Calcium Level 9.8MG/DL Total Bilirubin 0.80MG/DL Icterus Index < 2 Aspartate Amino Transf (AST/SGOT) 47U/L Alanine Aminotransferase (ALT/SGPT) 30U/L Alkaline Phosphatase 179U/L Total Protein 7.2G/DL Albumin 3.9G/DL Globulin 3.3G/DL Albumin/Globulin Ratio 1.2RATIO Lipase 47U/L Chemistry Specimen Hemolysis < 15 Urine Collection Type Cleancatch-midstream Urine Color Yellow Urine Turbidity Clear Urine pH 5.0 Urine Specific [place] >=1.030 Urine Protein 1+ Urine Glucose (UA) Negative Urine Ketones Trace Urine Blood Negative Urine Nitrite Negative Urine Bilirubin 1+ Urine Urobilinogen 1.0EU/DL Urine Leukocyte Esterase Negative Urine RBC 1-3/HPF Urine WBC 0-1/HPF Urine Squamous Epithelial Cells 5-10 Urine Bacteria 2+ Urine Hyaline Casts 1-3/LPF Urine Mucus Present Urine Culture Indicated Cult not indicated Medications Current ED Medications Ketorolac Tromethamine 15 mg 15 mg O ONCE IV Last administered on 05/16/16 13: 02; Start 05/16/16 at 12:45; Stop 05/16/16 at 12:46; Status DC Sodium Chloride (Normal Saline IV) 1,000 ml @ 500 mls/hr Q2H ONCE IV Last administered on 05/16/16 13:02; Start 05/16/16 at 12:45; Stop 05/16/16 at 14:44; Status DC Iohexol 1 bottle 1 bottle STK-MED ONCE .ROUTE ; Start 05/16/16 at 14:39; Stop 05/16/16 at 14:40; Status DC Sodium Chloride (NS) 100 ml @ As Directed STK-MED ONCE .ROUTE ; Start 05/16/16 at 14:39; Stop 05/16/16 at 14:40; Status DC Sodium Chloride (Iv Flush) 10 ml STK-MED ONCE .ROUTE ; Start 05/16/16 at 14:39; Stop 05/16/16 at 14:40; Status DC Hydromorphone HCl (Dilaudid) 0.5 mg O ONCE IV Last administered on 05/16/16 16 :47; Start 05/16/16 at 16:45; Stop 05/16/16 at 16:46; Status DC Methylnaltrexone [place] (Relistor) 12 mg O ONCE SQ ; Start 05/16/16 at 17:15; Stop 05/16/16 at 17:16; Status UNV Sodium Biphosphate/ Sodium Phosphate 1 enema 1 enema O PRN RECTALLY CONSTIPATION; Start 05/16/16 at 17:15; Status UNV Sodium Chloride (Normal Saline IV) 1,000 ml @ 125 mls/hr Q8H IV ; Start at 17:17; Status UNV Progress Progress WBC is 18.2 with 78 neutrophils and 9 bands. CMP and lipase are normal. UA is clear. CT scan does show colitis with moderate stool as well. She is still having quite a bit of pain today and so did discuss findings with Dr Benítez. He will admit at this time OBS. CT CT : Reason for Exam: abdominal pain CT: Abd/Pelvis IV contrast Interpretation: Abnormal (colitis) ABIOLA MEJIA APRN May 16, 2016 12:47
--- OUTSIDE RECORDS SUMMARY | 2016-05-16 12:50 | XMS REPORT | Continuity of Care Document ---
Author Author [facility] Organization [facility] Address Unknown Phone Unavailable Support Name Relationship Address Phone DARWIN HOOK MD Caregiver [facility] [address] [place] [address] LOPEZ NAVARRO DO Caregiver [address] [place] [address] AARON ESPARZA Caregiver [address] [place] [address] STACIE CARPIO MD Caregiver [address] [place] [address] [address] [place] [address] ELIZABETH OVIEDO Next Of Kin [address] [place] [address] Insurance Providers Payer Name Policy Number Subscriber Name Relationship Medicare [id number] Juana Oviedo 18 Self Everencemma [id number] Juana Oviedo 18 Self Advance Directives Directive [...] F (96.8 - 99.1) Temperature (Calculated Celsius) 36.65851 degrees C (36.0 - 37.3) Temperature Source [...] potentially toxic. Vitamin D, 25-Hydroxy performed at [facility] Reference Lab, [address] [place] [address] Tick Sewer Lilly Aceves MD 25-Hydroxy Vitamin D2 November [...] 14, 2013 3:09pm LAB TEST FORM REQUEST [id number] - Lipase February 17, 2014 9:41pm 125 [...] Has specimen been collected/obtained? Y Urine Specific [place] February 17, 2014 9:51pm 1.020 - Has [...] completed Encounters Encounter Location Date/Time Discharged Inpatient [facility] 02/17/14 10:46pm Registered Clinic [facility] 02/01/14 9:44am Registered Clinic [facility] 12/14/13 8:46am Registered Clinic [facility] 12/07/13 8:22am Registered Clinic [facility] 11/23/13 11:01am Recent Diagnosis GI bleed Warfarin-induced coagulopathy GI bleed Hypothyroidism Chronic atrial fibrillation Pacemaker History of breast cancer Obesity (BMI 30.0-34.9) Anemia Hypertension Paroxysmal atrial fibrillation Dyslipidemia
[2016-05-16] MEDS ORDERED: MULT80TA PO (12:52)
[2016-05-16] MEDS ORDERED: CALC1CAP22 PO (12:52)
[2016-05-16] MEDS ORDERED: POLY119P3 PO (12:52)
[2016-05-16] MEDS ORDERED: BETA1TAB17 PO (12:52)
[2016-05-16] MEDS ORDERED: DOCU-168 PO (12:52)
--- OUTSIDE RECORDS SUMMARY | 2016-05-16 12:53 | XMS REPORT | Continuity of Care Document ---
Author Author [facility] Organization [facility] Address Unknown Phone Unavailable Allergies Medications Medication [...] Procedures Code Description [place] [address] Office or other outpatient visit for the evaluation and management of a new patient, which requires ROD CAZARES MD 09/03/2015 28930 Office or other outpatient visit for the evaluation and management of an established patient, which ROD CAZARES MD 10/09/2015 71769 Office or other outpatient visit for the evaluation and management of an established patient, which ROD CAZARES MD 10/09/2015 78870 Office or other outpatient visit for the evaluation and management of a new patient, which requires ROD CAZARES MD 10/15/2015 03749 Office or other outpatient visit for the evaluation and management of an established patient, which ROD CAZARES MD 11/11/2015 69824 Office or other outpatient visit for the evaluation and management of an established patient, which ROD CAZARES MD 12/24/2015 Results Encounters ACCT No. Visit Date/Time Discharge Status Pt. Type Provider Facility Loc./Unit Complaint [id number] 03/23/2013 12:47:00 03/23/2013 23 :59:59 [facility] Outpatient [id number] 01/05/2013 12:51:00 01/05/2013 23 :59:59 [facility] Outpatient
[2016-05-16 13:06] LABS: HCT - HEMATOCRIT 38.4 % (36-46); HGB - HEMOGLOBIN 12.5 GM/DL (12-16); MEAN CORPUSCULAR HGB 32.2 UUG (26-34); MEAN CORPUSCULAR HGB CONC(MCHC 32.6 GM/DL (31-37); MEAN PLATELET VOLUME 10.5 UM3 (9.4-12.4); RED BLOOD COUNT 3.88 M/MM3 (4.00-5.20); WBC - WHITE BLOOD COUNT 18.2 T/MM3 (4.5-11.0)
[2016-05-16 13:37] LABS: BAND NEUTROPHILS # 1.6 T/MM3; LYMPHOCYTES # (MANUAL) 0.9 T/MM3 (1-4.8); MONOCYTES # (MANUAL) 1.5 T/MM3 (0-0.8); NEUTROPHILS #(MANUAL)-ABSOLUTE 14.2 T/MM3 (1.8-7.7); TOTAL CELLS COUNTED 100 %
[2016-05-16 13:45] LABS: BLOOD, URINE NEGATIVE (NEGATIVE); COLOR,URINE YELLOW (YELLOW); LEUKOCYTE ESTERASE ,URINE NEGATIVE (NEGATIVE); NITRITE,URINE NEGATIVE (NEGATIVE)
[2016-05-16 13:46] LABS: ALBUMIN 3.9 G/DL (3.5-5.0); ALBUMIN/GLOBULIN RATIO 1.2 RATIO (1.1-2.2); ALKALINE PHOSPHATASE 179 U/L (38-126); ALT (SGPT) 30 U/L (9-52); ANION GAP 13 MEQ/L (5-15); AST (SGOT) 47 U/L (14-36); BUN/CREATININE RATIO 24 RATIO (6-26); CALCIUM 9.8 MG/DL (8.4-10.2); CHLORIDE 102 MEQ/L (98-107); CO2 - CARBON DIOXIDE 21 MEQ/L (22-30); GLOMERULAR FILTRATION RATE 53; GLUCOSE 182 MG/DL (65-110); LIPASE 47 U/L (23-300); POTASSIUM 4.3 MEQ/L (3.6-5); SODIUM 136 MEQ/L (134-144); TOTAL PROTEIN 7.2 G/DL (6.3-8.2)
[2016-05-16 13:51] LABS: BACTERIA,URINE 2+ (NEGATIVE); MUCUS,URINE PRESENT; WBC,URINE 0-1 /HPF (0-5)
[2016-05-16] MEDS ORDERED: IOHEXOL 300 MG/ML 100ml INJECTION ONE (14:39)
[2016-05-16] MEDS ORDERED: NORMAL SALINE 100 ML ONE (14:39)
[2016-05-16] MEDS ORDERED: SALINE FLUSH 10ml SYRINGE ONE (14:39)
--- NOTE | 2016-05-16 14:45 | NUR ---
TO CT PER CART.
--- NOTE | 2016-05-16 15:05 | NUR ---
BACK FROM XRAY
--- NOTE | 2016-05-16 16:15 | NUR ---
PROVIDER Mer MEJIA PAYLOADER MACHINE OPERATOR IN TO SEE PATIENT.
--- NOTE | 2016-05-16 16:38 | NUR ---
PROVIDER Mer MEJIA DIAGNOSTICS TECH IN TO SEE PATIENT.
[2016-05-16] MEDS ORDERED: HYDROMORPHONE 2mg/ml INJECTION IV ONE (16:45)
--- NOTE | 2016-05-16 16:58 | NUR ---
PROVIDER DR SOARES IN TO SEE PATIENT.
[2016-05-16] MEDS ORDERED: FLEET PHOSPHO-SODA 133 ML ENEMA RECTALLY PRN (17:15)
[2016-05-16] MEDS ORDERED: METHYLNALTREXONE 12 MG/0.6 ML SQ ONE (17:15)
[2016-05-16] MEDS ORDERED: METRONIDAZOLE IVPB 500 MG in NORMAL SALINE 100 ML IV ONE ×2 (17:30→21:00)
--- NOTE | 2016-05-16 17:35 | NUR ---
ADMIT TO ROOM 155 PER CART. ABLE TO TRANSFER TO HOSPITAL BED WITHOUT DIFFICULTIES. CARE ASSUMED BY MEDICAL UNIT RN'S.
--- NOTE | 2016-05-16 17:35 | NUR ---
ADMIT PT TO RM 155 PER CART AFTER ANALY QUACH GIVES REPORT. PT ALERT AND ORIENTED. DENIES MUCH PAIN STATING SHE GOT PAIN MEDS IN THE ER. PT STATES HER LAST NORMAL BOWEL MOVEMENT WAS A WEEK AGO. VITALS OBTAINED AND STABLE CHARTED. JO CATHETER PLACED PER STERILE TECHNIQUE TO DEPENDENT DRAINAGE BY ANALY SAWANT. PT RESTS QUIETLY. WILL CONTINUE TO MONITOR.
--- NOTE | 2016-05-16 17:35 | NUR ---
Arrival Patient arrived on unit at this time. Patient moved self from cart to bed with assistance. Patient oriented to unit.
--- OUTSIDE RECORDS SUMMARY | 2016-05-16 17:36 | XMS REPORT | Continuity of Care Document ---
Author Author [facility] Organization [facility] Address Unknown Phone Unavailable Support Name Relationship Address Phone DARWIN HOOK MD Caregiver [facility] [address] [address] LOPEZ NAVARRO DO Caregiver [address] [place] [address] AARON ESPARZA Caregiver [address] [place] [address] STACIE CARPIO MD Caregiver [address] [place] [address] [address] [address] ELIZABETH OVIEDO Next Of Kin [address] [place] [address] Insurance Providers Payer Name Policy Number Subscriber Name Relationship Medicare [id number] Juana Oviedo 18 Self Everencemma [id number] Juana Oviedo 18 Self Advance Directives Directive [...] F (96.8 - 99.1) Temperature (Calculated Celsius) 36.02058 degrees C (36.0 - 37.3) Temperature Source [...] potentially toxic. Vitamin D, 25-Hydroxy performed at [facility] Reference Lab, [address] [place] [address] Nursing Director Lilly Aceves MD 25-Hydroxy Vitamin D2 November [...] 14, 2013 3:09pm LAB TEST FORM REQUEST [id number] - Lipase February 17, 2014 9:41pm 125 [...] Has specimen been collected/obtained? Y Urine Specific [place] February 17, 2014 9:51pm 1.020 - Has [...] completed Encounters Encounter Location Date/Time Discharged Inpatient [facility] 02/17/14 10:46pm Registered Clinic [facility] 02/01/14 9:44am Registered Clinic [facility] 12/14/13 8:46am Registered Clinic [facility] 12/07/13 8:22am Registered Clinic [facility] 11/23/13 11:01am Recent Diagnosis GI bleed Warfarin-induced coagulopathy GI bleed Hypothyroidism Chronic atrial fibrillation Pacemaker History of breast cancer Obesity (BMI 30.0-34.9) Anemia Hypertension Paroxysmal atrial fibrillation Dyslipidemia
--- OUTSIDE RECORDS SUMMARY | 2016-05-16 17:41 | XMS REPORT | Continuity of Care Document ---
[...] Procedures Code Description [place] [address] Office or other outpatient visit for the evaluation and management of a new patient, which requires ROD CAZARES MD 09/03/2015 46921 Office or other outpatient visit for the evaluation and management of an established patient, which ROD CAZARES MD 10/09/2015 21395 Office or other outpatient visit for the evaluation and management of an established patient, which ROD CAZARES MD 10/09/2015 78880 Office or other outpatient visit for the evaluation and management of a new patient, which requires ROD CAZARES MD 10/15/2015 70007 Office or other outpatient visit for the evaluation and management of an established patient, which ROD CAZARES MD 11/11/2015 10965 Office or other outpatient visit for the evaluation and management of an established patient, which ROD CAZARES MD 12/24/2015 Results Encounters ACCT No. Visit Date/Time Discharge Status Pt. Type Provider Facility Loc./Unit Complaint [id number] 03/23/2013 12:47:00 03/23/2013 23 :59:59 [facility] Outpatient [id number] 01/05/2013 12:51:00 01/05/2013 23 :59:59 [facility] Outpatient
--- NOTE | 2016-05-16 17:44 | HPPDOC ---
HPI - Adult Date DATE: 05/16/16 TIME: 17:25 General Chief Complaint: abdominal pain History of Present Illness This is an 81-year-old woman whose primary care physician is Dr. Bc Dukes and is currently being worked up by Dr. Torres for probable bone cancer. Yesterday she began having abdominal pain. This pain is colicky, crosses the abdomen is generalized but worst on the left upper quadrant. She states that since she had started oxycodone for her back pain that she has had issues of intermittent constipation that she has treated at home using laxatives. This morning she used a oil-based fleet enema to some mild relief but the pain has returned and is worsened. She has been unable keep down even clear liquids at this point, has had recurrent vomiting nausea and some chills secondary to this. She is not yet experienced any true fevers joint pain or malaise of antiviral prodrome Past Medical History Past Medical History Patient's Medical History: (1) Hypothyroidism Onset Date: ~ 05/2016 (2) History of breast cancer (3) Pacemaker (4) Chronic atrial fibrillation (5) Hypertension Patient is also made workup for likely bone cancer by Dr. Torres Surgical History Patient's Surgical History: Cholecystectomy, 3 sections heart catheterization pacemaker placement orthopedic total repair with pin Current Medications Home Meds Reported Medications Docusate Sodium (Colace) 100 Mg Capsule, 100 MG PO DAILY Y for CONSTIPATION 05/16/16 Calcium Carbonate/Vitamin D3 (Calcium 600 + Vit D 400 Softgl) 1 Each Capsule, 2 CAP PO DAILY 05/16/16 Beta-Carotene(A) W-C & E/Min (Vision Vitamins) 1 Each Tablet, 1 TAB PO BID 05/16/16 Multivit-Minerals/Folic Acid (Centrum Multigummies) 80 Mcg Tab.chew, 1 TAB PO DAILY 05/16/16 Polyethylene Glycol 3350 (Miralax) 119 Gm Powder, 17 G PO DAILY Y for CONSTIPATION 05/16/16 Pravastatin Sodium (Pravastatin Sodium) 80 Mg Tablet, 80 MG PO HS 05/16/16 Lisinopril (Lisinopril) 40 Mg Tablet, 40 MG PO DAILY 05/16/16 Oxycodone HCl/Acetaminophen (Oxycodone-Acetaminophen 5-325) 5-325 Tablet, 1 TAB PO Q4-6H Y for PAIN 05/16/16 Furosemide (Furosemide) 20 Mg Tablet, 20-40 MG PO DAILY 05/09/16 Warfarin Sodium (Warfarin Sodium) 5 Mg Tablet, 5 MG PO SuMo 05/09/16 Tramadol HCl (Tramadol HCl) 50 Mg Tablet, 50-100 MG PO Q6HR Y for PAIN 05/09/16 Warfarin Sodium (Coumadin) 5 Mg Tablet, 2.5 MG PO TuWeThFrSa 06/14/15 Verapamil HCl (Verapamil HCl) 360 Mg Capsule, 360 MG PO DAILY 06/14/15 Latanoprost (Latanoprost) 2.5 Ml Drops, 1 DROP BOTH EYES HS, BOTTLE 02/17/14 Metoprolol Tartrate (Metoprolol Tartrate) 50 Mg Tablet, 75 MG PO BID 08/24/12 Ubidecarenone (Co Q-10) 200 Mg Capsule, 200 MG PO DAILY 08/24/12 Levothyroxine Sodium (Levothyroxine Sodium) 75 Mcg Tablet, 75 MCG PO DAILY 02/19/10 Allergies: Coded Allergies: morphine (Verified Allergy, Unknown, HALLUCINATION, 05/16/16) hydrocodone (Verified Adverse Reaction, Intermediate, VOMITING, 05/16/16) Sulfa (Sulfonamide Antibiotics) (Verified Adverse Reaction, Unknown, STOMACH HURTS, 05/16/16) metoclopramide HCl (Verified Adverse Reaction, Unknown, AGITATED, ANXIOUS , 05/16/16) sulfamethoxazole (Unverified Adverse Reaction, Unknown, STOMACH HURTS, 05/16) trimethoprim (Unverified Adverse Reaction, Unknown, STOMACH HURTS, 05/16/16) Family History Family History: Both parents at the age of 79 father had Parkinson's mother of some type of cancer Social History Smoking Status: Never smoker Does patient use chewing tobac: No Second Hand Exposure: No Substance Use Type: does not use Marital Status: Sexuality: male partner Review of Systems Constitutional: REPORTS: chills, weakness ENMT Mouth/Throat: DENIES: change in swallowing, painful swallowing Cardiovascular DENIES: chest pain, paroxysmal nocturnal dysp Rhythm/Rate: DENIES: palpitations Pulmonary Respiratory: DENIES: cough, dyspnea, sputum GI Upper Abdomen: nausea, pain, vomiting Lower Abdomen: DENIES: blood in stool, melena General: urgency Integumentary Skin: DENIES: color change Neurological General: DENIES: numbness, weakness Psychiatric Psychiatric: DENIES: anxiety Endocrine heat/cold intolerance Physical Exam General General Nourishment: well nourished Vital Signs Vital Signs Date Time Temp Pulse Resp B/P Pulse Ox O2 Delivery O2 Flow Rate FiO2 05/16/16 17:24 105 18 97 Room Air 05/16/16 12:20 98.1 180/101 Height (Feet): 5 Height (Inches): 3.50 Eyes Brief: FOUND: EOMI, PERRL Neck Brief: NOT FOUND: JVD, adenopathy, nuchal rigidity Respiratory Brief: FOUND: clear all maradiaga, equal bilaterally, NOT FOUND: rales , wheezes Abdomen (brief) Abdominal Brief: FOUND: BS normo active x4, soft, tender, NOT FOUND: hepatosplenomegaly Integumentary (brief) Integumentary Brief: FOUND: dry, pink, warm Neurologic (brief) Neurological Brief: FOUND: cranial 2-12 intact, motor, sensory Neurologic RN Documented GCS Eye Opening: Verbal: Motor: Total: Psychiatric (brief) FOUND: alert, attentive, normal affect, oriented Laboratory Laboratory Tests Test 05/16/16 12:58 05/16/16 13:40 White Blood Count 18.2T/MM3 Red Blood Count 3.88M/MM3 Hemoglobin 12.5GM/DL Hematocrit 38.4% Mean Corpuscular Volume 99.0UM3 Mean Corpuscular Hemoglobin 32.2UUG Mean Corpuscular Hemoglobin Concent 32.6GM/DL RDW Standard Deviation 48.9FL Platelet Count 286T/MM3 Mean Platelet Volume 10.5UM3 Immature Granulocyte % (Auto) % Neutrophils (%) (Auto) % Lymphocytes (%) (Auto) % Monocytes (%) (Auto) % Eosinophils (%) (Auto) % Basophils (%) (Auto) % Absolute Immature Granulocyte (auto T/MM3 Absolute Neutrophils (auto) T/MM3 Absolute Lymphocytes (auto) T/MM3 Absolute Monocytes (auto) T/MM3 Absolute Eosinophils (auto) T/MM3 Absolute Basophils (auto) T/MM3 Neutrophils % (Manual) 78.0% Band Neutrophils % 9.0% Lymphocytes % (Manual) 5.0% Monocytes % (Manual) 8.0% Absolute Neutrophils (Manual) 14.2T/MM3 Band Neutrophils # 1.6T/MM3 Lymphocytes # (Manual) 0.9T/MM3 Monocytes # (Manual) 1.5T/MM3 Red Cell Morphology Comment Normal Turbidity < 20 Sodium Level 136MEQ/L Potassium Level 4.3MEQ/L Chloride Level 102MEQ/L Carbon Dioxide Level 21MEQ/L Anion Gap 13MEQ/L Blood Urea Nitrogen 24.0MG/DL Creatinine 1.0MG/DL Glomerular Filtration Rate Calc 53 BUN/Creatinine Ratio 24RATIO Glucose Level 182MG/DL Calculated Osmolality 271MOSM/KG Calcium Level 9.8MG/DL Total Bilirubin 0.80MG/DL Icterus Index < 2 Aspartate Amino Transf (AST/SGOT) 47U/L Alanine Aminotransferase (ALT/SGPT) 30U/L Alkaline Phosphatase 179U/L Total Protein 7.2G/DL Albumin 3.9G/DL Globulin 3.3G/DL Albumin/Globulin Ratio 1.2RATIO Lipase 47U/L Chemistry Specimen Hemolysis < 15 Urine Collection Type Cleancatch-midstream Urine Color Yellow Urine Turbidity Clear Urine pH 5.0 Urine Specific Center >=1.030 Urine Protein 1+ Urine Glucose (UA) Negative Urine Ketones Trace Urine Blood Negative Urine Nitrite Negative Urine Bilirubin 1+ Urine Urobilinogen 1.0EU/DL Urine Leukocyte Esterase Negative Urine RBC 1-3/HPF Urine WBC 0-1/HPF Urine Squamous Epithelial Cells 5-10 Urine Bacteria 2+ Urine Hyaline Casts 1-3/LPF Urine Mucus Present Urine Culture Indicated Cult not indicated Radiology CT exam shows fairly significant fecal load within the gut with air contained within (no free air). Some thickening of large intestinal wall is noted on my own read Sepsis Diagnostic Criteria Sepsis Confirmed/Suspected Infection: Yes SIRS Criteria: WBC >=12,000 or <=4,000, Bands >= 10% Assessment & Plan Problems: (1) Colitis Status: Acute Assessment & Plan: With elevated white blood cell count and increased band count I would have a fairly high suspicion for infectious over inflammatory bowel. Starting ciprofloxacin and metronidazole and hydrating (2) Therapeutic opioid-induced constipation (OIC) Assessment & Plan: Patient is given mental naltrexone is a one-time dose along with a repeat saline-based enema (3) Hypothyroidism Onset Date: ~ 05/2016 Status: Chronic Assessment & Plan: Continue home medication (4) Obesity (BMI 30.0-34.9) Status: Chronic Assessment & Plan: Patient is currently NPO except for sips of water and ice chips (5) Degenerative arthritis of left knee Assessment & Plan: Pain management will be performed for the very short course with Toradol instead of further opioid-based pain management. Patient is being placed in observation overnight for IV antibiotics and symptomatic relief of constipation. They transition to oral antibiotics and sent home the next day DVT Prophylaxis: SCD'S Code Status Full Code Hospital Course Summary Disclaimer The hospital course summary below is not to be considered part of the above Progress Note. ERMIAS SOARES MD May 16, 2016 17:32
[2016-05-16 17:48] VITALS: BP 166/69; PULSE 103; RESP 22; TEMP 96.9; O2SAT 91
[2016-05-16] MEDS: NORMAL SALINE 1,000 ML IV SCH (17:52)
[2016-05-16 18:11] VITALS: Ht 160 cm; Wt 94.3 kg
[2016-05-16] MEDS ORDERED: CIPROFLOXACIN 400mg in D5W 200ml BAG IV SCH (21:00)
[2016-05-16 23:58] VITALS: BP 143/69; PULSE 116; RESP 20; TEMP 98.9; O2SAT 95
[2016-05-17] MEDS: KETOROLAC 15mg/ml INJECTION IV PRN ×3 (01:02→13:07)
[2016-05-17] MEDS: NORMAL SALINE 1,000 ML IV SCH ×4 (01:17→23:31)
[2016-05-17] MEDS: ONDANSETRON 4mg/2ml INJECTION IV PRN (04:34)
--- NOTE | 2016-05-17 05:11 | NUR ---
STATUS PT HAS BEEN RESTING IN BED FOR MOST OF THIS SHIFT, UP TO TOILET TWICE WITH NO BM, EASILY AROUSED FOR CARES, C/O OF MODERATE ABD & BACK PAIN CONTROLLED WITH PRN TORADOL AND PHAM, VSS ON ROOM AIR, HAVE BEEN IN CONTACT WITH DR. CHIRINOS ON LABS AND PAIN, SOME NAUSEA CONTROLLED WITH ZOFRAN, WILL CONTINUE TO MONITOR.
[2016-05-17 06:24] LABS: MEAN CORPUSCULAR HGB 32.1 UUG (26-34); MEAN CORPUSCULAR HGB CONC(MCHC 32.4 GM/DL (31-37); MEAN CORPUSCULAR VOLUME 99.1 UM3 (80-100); MEAN PLATELET VOLUME 10.8 UM3 (9.4-12.4); RED BLOOD COUNT 3.43 M/MM3 (4.00-5.20); WBC - WHITE BLOOD COUNT 21.1 T/MM3 (4.5-11.0)
[2016-05-17 06:31] LABS: ANION GAP 10 MEQ/L (5-15); BUN/CREATININE RATIO 22 RATIO (6-26); CALCIUM 8.7 MG/DL (8.4-10.2); CHLORIDE 105 MEQ/L (98-107); CO2 - CARBON DIOXIDE 23 MEQ/L (22-30); GLOMERULAR FILTRATION RATE 53; GLUCOSE 115 MG/DL (65-110); POTASSIUM 4.2 MEQ/L (3.6-5); SODIUM 138 MEQ/L (134-144)
[2016-05-17 06:48] LABS: BAND NEUTROPHILS # 1.5 T/MM3; LYMPHOCYTES # (MANUAL) 1.5 T/MM3 (1-4.8); MONOCYTES # (MANUAL) 1.1 T/MM3 (0-0.8); NEUTROPHILS #(MANUAL)-ABSOLUTE 17.1 T/MM3 (1.8-7.7); TOTAL CELLS COUNTED 100 %
[2016-05-17 07:15] VITALS: BP 139/61; PULSE 102; RESP 22; TEMP 99.7; O2SAT 92
--- NOTE | 2016-05-17 08:57 | DI ---
Indication: ITS.REASON: abdominal pain PROCEDURE: CT ABD/PELVIS W/CONTRAST ONLY: Encounter: Initial Comparison: December 17, 2010 Technique: Axial CT images were performed through the abdomen and pelvis after the administration of intravenous contrast. Coronal and sagittal two-dimensional reformats. Automated Exposure Control and Iterative Reconstruction dose reducing techniques were utilized. Contrast: Omnipaque 300 99 mL Findings: Atelectasis in both lower lobes. Heart is enlarged. Liver is normal. Gallbladder is surgically absent. The spleen, fatty replaced pancreas and adrenal glands are within normal limits. Kidneys are stable with renal atrophy and small cysts. No abdominal or pelvic adenopathy. Bladder is decompressed. Uterus is unremarkable for age. No significant free fluid. There is inflammation at the splenic flexure of the colon with some bowel wall thickening. No evidence of a bowel obstruction however. Bone windows show degenerative changes in the spine along with small sclerotic osseous lesions. Chronic appearing inferior endplate compression deformities of T10 and T11. Impression: Acute colitis of the splenic flexure could be infectious or inflammatory. Colonoscopy is recommended after the acute episode to exclude any underlying neoplasm or lesion in this location. There is a preliminary report by [facility]. .
[2016-05-17] MEDS: CIPROFLOXACIN 400 MG in D5W 200 ML IV SCH ×2 (09:52→21:34)
[2016-05-17] MEDS: PANTOPRAZOLE 40mg INJECTION IV SCH (09:53)
--- NOTE | 2016-05-17 14:30 | NUR ---
Low urine output/ Notified Dr. Benítez notified that patient's urine output was 125 ml/8 hr at 1400 check. Patient also has not had BM since enema this morning. Order for Mag Citrate. Will continue to monitor.
[2016-05-17] MEDS ORDERED: MAGNESIUM CITRATE 296 ML SOLUTION PO ONE (15:00)
[2016-05-17 15:18] VITALS: BP 132/55; PULSE 87; RESP 20; TEMP 97.4; O2SAT 94
--- NOTE | 2016-05-17 16:24 | PNPDOC ---
Subjective Date DATE: 05/17/16 TIME: 16:15 Subjective Still complaining of abdominal pain, and feeling very constipated. No significant gas restore movement thus far. No new symptoms otherwise Objective Vital Signs Vital signs Vital Signs Date Time Temp Pulse Resp B/P Pulse Ox O2 Delivery O2 Flow Rate FiO2 05/17/16 15:18 97.4 87 20 132/55 94 Room Air 05/16/16 23:58 1.00 Height (Feet): 5 Height (Inches): 3.00 Weight (Kilograms): 91.400 General General Appearance: Alert, Orientated x 3, Cooperative Eyes (Brief) Eyes: FOUND: EOMI, PERRL, NOT FOUND: scleral icterus Neck (Brief) Neck: NOT FOUND: JVD, adenopathy, nuchal rigidity Respiratory (Brief) Respiratory: FOUND: clear all maradiaga, equal bilaterally, NOT FOUND: rales, wheezes Cardiovascular (Brief) Cardiac: FOUND: regular rate, regular rhythm Capillary Refill: <2 sec Abdomen (Brief) Abdominal: FOUND: BS normo active x4, soft, tender Integumentary (Brief) Integumentary: FOUND: dry, pink, warm Neurologic (Brief) Neurological: FOUND: cranial 2-12 intact, motor, sensory Psychiatric (Brief) Psychiatric: FOUND: alert, normal affect, oriented Laboratory Laboratory Laboratory Tests 05/16/16 12:58 05/17/16 06:02 Laboratory Tests 05/16/16 12:58 05/17/16 06:02 Radiology Final read by inpatient radiology is acute colitis of the splenic flexure inflammatory versus infectious Sepsis Diagnostic Criteria Sepsis Confirmed/Suspected Infection: Yes SIRS Criteria: WBC >=12,000 or <=4,000, Bands >= 10% Assessment & Plan Problems: (1) Colitis Status: Acute Assessment & Plan: High suspicion for infectious over inflammatory bowel. Starting ciprofloxacin and metronidazole and hydrating. Unfortunately why comes climbing despite antibiotics thus far (2) Therapeutic opioid-induced constipation (OIC) Assessment & Plan: Patient is given methyl-naltrexone without improvement. She essentially failed sailing fleet enema is well being unable to hold it in. Getting a 4 times divided dose of magnesium citrate to improve bowel transit without causing significant discomfort. (3) Hypothyroidism Onset Date: ~ 05/2016 Status: Chronic Assessment & Plan: Continue home medication (4) Obesity (BMI 30.0-34.9) Status: Chronic Assessment & Plan: Patient is currently NPO except for sips of water and ice chips (5) Degenerative arthritis of left knee Assessment & Plan: Pain management will be performed for the very short course with Toradol instead of further opioid-based pain management. Patient is being placed in observation overnight for IV antibiotics and symptomatic relief of constipation. They transition to oral antibiotics and sent home the next day Code Status Full Code Hospital Course Summary Disclaimer The hospital course summary below is not to be considered part of the above Progress Note. ERMIAS SOARES MD May 17, 2016 16:19
[2016-05-17 16:35] VITALS: PULSE 86; RESP 16; O2SAT 94
--- NOTE | 2016-05-17 18:18 | CONSF ---
DATE OF CONSULTATION 05/17/2016 HISTORY This is an 81-year-old woman known to me with history of breast cancer treated in 2009 with bilateral mastectomy followed by chemotherapy, cyclophosphamide and docetaxel followed by five years of A.I. During followup she was noted to have rising tumor markers, CEA and CA 27-29. Restaging scans including PET scan, CT scan and bone scan showed evidence of T5 compression fracture and interval development of multiple lesions in the bones including the ribs consistent with bone metastasis. The patient was seen in [place] by Dr. Villalba for possible kyphoplasty. However, due to the high level of the compression fracture at T5, the patient was referred to intervention radiologist for the procedure. The patient [facility] myel[facility]. The kyphoplasty was not done yet. The patient continues to have severe intractable back pain for which she is taking narcotics. She was taking laxatives including Senokot and Dulcolax. Unfortunately she had no bowel movement. She presented with abdominal pain and severe constipation with nausea. Her CT scan of the abdomen showed no bowel obstruction. The CT scan showed inflammation and thickening at the splenic flexure concerning for colon malignancy. Colonoscopy was recommended. The patient still has not had a bowel movement. She is on laxatives. She has had two enemas so far. She has no vomiting. PAST MEDICAL HISTORY Hypertension. Breast cancer treated in 2009 with bilateral mastectomy. Atrial fibrillation - has pacemaker. She is on Coumadin. Hypertension. MEDICATIONS Colace. Senokot. MiraLAX. Pravastatin. Lisinopril. Oxycodone. Lasix. Coumadin. Verapamil. Metoprolol. Levothyroxine. ALLERGIES Morphine causes hallucinations. Sulfa. Metoclopramide. REVIEW OF SYSTEMS GENERAL: Uncomfortable due to constipation and abdominal pain discomfort. Not in acute distress. RESPIRATORY: No shortness of breath. No cough or hemoptysis. CARDIOVASCULAR: No chest pain. GENITOURINARY: No urinary symptoms. VAMP PRESSER: No history of stroke. PHYSICAL EXAM VITAL SIGNS: Stable. GENERAL: Not in acute distress. LUNGS: Clear to auscultation. No wheezing or crackles. BREASTS: Both surgically absent due to mastectomy. No recurrence in the chest wall or axilla. CARDIOVASCULAR: No murmur. No JVD. ABDOMEN: Benign. No organomegaly or masses. Bowel sounds are positive. RECTAL: Exam deferred. EXTREMITIES: No edema. SKIN: No petechiae. VAMP PRESSER: No focal neurologic deficit. LABORATORY White count 18,000. Hemoglobin 12.5. Platelet count 286,000. Neutrophils 78%. Creatinine 1.0. Calcium 9.8. Alkaline phosphatase 178. CT scan showed no bowel obstruction. Thickening and inflammation at the splenic flexure. ASSESSMENT 1. Severe constipation most likely due to the use of narcotics. However, we cannot rule out colonic mass, colitis or cancer in view of the inflammatory changes and thickening of the splenic flexure. 2. More than five-year history of breast cancer status post mastectomy followed by chemotherapy followed by five years of A.I. Now with bone metastasis with pathologic fracture of T5. 3. History of atrial fibrillation, on Coumadin. RECOMMENDATIONS/PLAN Continue supportive care and symptomatic management for the narcotic-induced constipation. The patient is already on different laxatives. Once stabilized, the patient may benefit from screening colonoscopy. Regarding breast cancer, the patient will be started on Faslodex for the breast cancer and Xgeva to stabilize bones and prevent bony events. MTDD
[2016-05-17] MEDS: TRAMADOL 50 MG TABLET PO PRN (18:33)
--- NOTE | 2016-05-17 19:23 | NUR ---
Shift Summary Patient alert and oriented x3 this shift. VSS. On RA. Patient c/o abdominal pain from constipation. PRN Toradol and Tramadol given. Patient unable to have BM despite enema and magnesium citrate administration. Hooks catheter patent and draining. Patient up ambulating in halls once today. Positioned self in bed and assisted in positioning by nursing staff. IV infusing as ordered through right PAC. Patient able to tolerate small amount of oral intake of clear liquids, however patient states she has no appetite and eating continues to cause abdominal pain. present at bedside today.
[2016-05-18 00:19] VITALS: BP 137/67; PULSE 95; RESP 20; TEMP 98.7; O2SAT 94
--- NOTE | 2016-05-18 00:30 | NUR ---
[employer]: DAY SHIFT PASSED ON INFORMATION REGARDING [employer] ADMINIST[employer]ATION TO GIVE PT 1/4 BOTTLE Q8HRS. PT ONLY TOOK 2 OUNCES AT 00:30 AND REFUSED TO TAKE MORE.
[2016-05-18] MEDS: TRAMADOL 50 MG TABLET PO PRN (00:57)
[2016-05-18] MEDS: ONDANSETRON 4mg/2ml INJECTION IV PRN (00:58)
--- NOTE | 2016-05-18 03:17 | NUR ---
C-PAP: PT SAID SHE HAD HER C-PAP ON FOR 4 HOURS AND THAT ITS ENOUGH, AND THAT THE C-PAP WAS BOTHERING HER (BLOWING AIR ONTO HER FACE). WILL CONTINUE TO MONITOR.
--- NOTE | 2016-05-18 05:12 | NUR ---
SHIFT SUMMARY: PT IS A&OX3, FRIENDLY AND COOPERATIVE. VITAL SIGNS ARE STABLE. PT EXPERIENCES CHRONIC BACK PAIN AND ABDOMINAL PAIN (ADMIN TRAMADOL, SEE EMAR). PT HAS AN INDWELLING JO CATHETER THAT IS PATENT AND DRAINING, BUT DOES NOT PUT OUT A LOT (DOCTOR NOTIFIED BY DAY SHIFT RN). PT IS UP WITH 1 STANDBY ASSIST TO THE BATHROOM AND USES A CANE TO AMBULATE. NORMAL SALINE RUNNING AT 125ML/HR. PT IS ON CLEAR LIQUIDS. CALL LIGHT WITHIN REACH, BED ALARM ON.
[2016-05-18 07:46] VITALS: BP 149/71; PULSE 86; RESP 18; TEMP 97; O2SAT 92
[2016-05-18] MEDS: PANTOPRAZOLE 40mg INJECTION IV SCH (08:17)
[2016-05-18] MEDS: NORMAL SALINE 1,000 ML IV SCH ×2 (08:17→17:28)
[2016-05-18] MEDS: CIPROFLOXACIN 400 MG in D5W 200 ML IV SCH ×2 (08:18→20:08)
--- NOTE | 2016-05-18 11:29 | NUR ---
MELODY OLIVER VISITED PT. CM EXPLAINED ROLE AND PROVIDED CONTACT INFORMATION. PT PLANS TO RETURN HOME [place] ST[place] [facility] [place] PT LIVES WITH SPOUSE. PT DENIES NEEDS. 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 PT DECLINED NEED FOR INFORMATION ON [employer] WHEEL[employer]. PT IS AWARE TO CONTACT CM IF NEEDS ARISE.
[2016-05-18 14:55] LABS: HCT - HEMATOCRIT 35.4 % (36-46); HGB - HEMOGLOBIN 11.2 GM/DL (12-16); MEAN CORPUSCULAR HGB 31.7 UUG (26-34); MEAN CORPUSCULAR HGB CONC(MCHC 31.6 GM/DL (31-37); MEAN CORPUSCULAR VOLUME 100.3 UM3 (80-100); MEAN PLATELET VOLUME 10.8 UM3 (9.4-12.4); RED BLOOD COUNT 3.53 M/MM3 (4.00-5.20); WBC - WHITE BLOOD COUNT 15.1 T/MM3 (4.5-11.0)
[2016-05-18 15:16] LABS: ANION GAP 12 MEQ/L (5-15); BUN/CREATININE RATIO 18 RATIO (6-26); CALCIUM 8.9 MG/DL (8.4-10.2); CHLORIDE 106 MEQ/L (98-107); CO2 - CARBON DIOXIDE 22 MEQ/L (22-30); GLOMERULAR FILTRATION RATE 53; GLUCOSE 140 MG/DL (65-110); SODIUM 140 MEQ/L (134-144)
[2016-05-18 15:20] LABS: LYMPHOCYTES # (MANUAL) 1.5 T/MM3 (1-4.8); MONOCYTES # (MANUAL) 0.9 T/MM3 (0-0.8); NEUTROPHILS #(MANUAL)-ABSOLUTE 12.7 T/MM3 (1.8-7.7); TOTAL CELLS COUNTED 100 %
[2016-05-18 16:15] VITALS: BP 167/71; PULSE 84; RESP 20; TEMP 96.1; O2SAT 94
--- NOTE | 2016-05-18 20:30 | NUR ---
SHIFT SUMMARY PT ALERT AND ORIENTED X3. PT ON RA, DENIES SOA. DENIES PAIN, DENIES N/V. UP WITH ASSIST X1, GAIT BELT, CANE. JO PATENT, ADEQUATE URINE OUTPUT. MULTIPLE BMs THIS SHIFT. IVF INFUSING ORDERED INTO RIGHT CHEST PAC, ABLE TO ASPIRATE. UP IN RECLINER FOR MOST OF TODAY. CHAIR ALARM ON, CALL LIGHT WITHIN REACH.
--- NOTE | 2016-05-18 22:08 | PNPDOC ---
Subjective Date DATE: 05/18/16 TIME: 21:52 Subjective Was uncomfortable all throughout the day is finally had a bowel movement this evening at about 6 PM. She is elated about this. Her abdomen feels significantly better she is willing to try for liquid diet at this time Objective Vital Signs Vital signs Vital Signs Date Time Temp Pulse Resp B/P Pulse Ox O2 Delivery O2 Flow Rate FiO2 05/18/16 16:15 96.1 84 20 167/71 94 Room Air 05/17/16 20:45 1.00 Height (Feet): 5 Height (Inches): 3.00 Weight (Kilograms): 93.900 General General Appearance: Alert, Orientated x 3, Cooperative, No Acute Distress Eyes (Brief) Eyes: FOUND: EOMI, PERRL, NOT FOUND: scleral icterus Neck (Brief) Neck: NOT FOUND: JVD, nuchal rigidity Respiratory (Brief) Respiratory: FOUND: clear all maradiaga, equal bilaterally, NOT FOUND: rales, wheezes Cardiovascular (Brief) Cardiac: FOUND: regular rate, regular rhythm Abdomen (Brief) Abdominal: FOUND: BS normo active x4, soft Extremities (Brief) Extremity : Side: Bilateral Extremity: leg Extremity Finding: FOUND: edema Integumentary (Brief) Integumentary: FOUND: dry, pink, warm Neurologic (Brief) Neurological: FOUND: cranial 2-12 intact, motor, sensory Psychiatric (Brief) Psychiatric: FOUND: alert, normal affect, oriented Laboratory Laboratory Laboratory Tests 05/17/16 06:02 05/18/16 14:38 Laboratory Tests 05/17/16 06:02 05/18/16 14:39 Sepsis Diagnostic Criteria Sepsis Confirmed/Suspected Infection: Yes SIRS Criteria: WBC >=12,000 or <=4,000, Bands >= 10% Assessment & Plan Problems: (1) Colitis Status: Acute Assessment & Plan: Continuing ciprofloxacin and metronidazole and hydrating. White blood cell count 15, now below arrival. Far more likely infectious component then inflammatory at her age. Will need to check with family as to her last colonoscopy. (2) Therapeutic opioid-induced constipation (OIC) Status: Resolved Assessment & Plan: Patient had a bottle of magnesium citrate given to her in for divided doses throughout course yesterday has finally had a significant bowel movement. She had been unresponsive to the mental naltrexone (3) Hypothyroidism Onset Date: ~ 05/2016 Status: Chronic Assessment & Plan: Continue home medication (4) Obesity (BMI 30.0-34.9) Status: Chronic Assessment & Plan: Trying liquid diet now (5) Degenerative arthritis of left knee Assessment & Plan: Patient did receive small amount of tramadol at her home dose. Code Status Full Code Hospital Course Summary Disclaimer The hospital course summary below is not to be considered part of the above Progress Note. Hospital Course Summary 05/18/2016 finally had the necessary bowel movement and his feelings symptomatically better. Nursing reports that she is still weak however an patient has asked to stay throughout the night. If she is not steady on her feet tomorrow would get physical therapy to assess if she needs a short course of rehab ERMIAS SOARES MD May 18, 2016 21:55
[2016-05-18 23:51] VITALS: BP 136/67; PULSE 82; RESP 14; TEMP 97.2; O2SAT 96
[2016-05-19] MEDS: NORMAL SALINE 1,000 ML IV SCH ×2 (02:17→10:23)
[2016-05-19] MEDS: KETOROLAC 15mg/ml INJECTION IV PRN ×2 (03:21→21:57)
--- NOTE | 2016-05-19 04:42 | NUR ---
Status Pt attempted to defecate twice during night but was unable to. Hooks patent and draining. Up with 1, GB and cane. Complained of moderate chronic back pain. Gave ketorolac as charted. Pt moved to recliner at approx 0320 for change of position. VSS. Chair alarm on and call light within reach. Will continue to monitor.
[2016-05-19 07:48] VITALS: BP 155/78; PULSE 80; RESP 18; TEMP 96.4; O2SAT 97
[2016-05-19] MEDS: CIPROFLOXACIN 400 MG in D5W 200 ML IV SCH ×2 (09:59→21:54)
[2016-05-19] MEDS: PANTOPRAZOLE 40mg INJECTION IV SCH (09:59)
[2016-05-19] MEDS ORDERED: DOCUSATE SODIUM 100 MG CAPSULE PO PRN (12:15)
[2016-05-19] MEDS ORDERED: BISACODYL 10 MG SUPPOSITORY RECTALLY ONE (12:30)
[2016-05-19] MEDS ORDERED: FUROSEMIDE 40 MG/4 ML INJECTION IV ONE (12:30)
--- NOTE | 2016-05-19 12:52 | PNPDOC ---
Subjective Date DATE: 05/19/16 TIME: 12:33 Subjective F/U: Colitis, constipation Doing fair this afternoon. Pass significant stool yesterday - less gassiness, but feels more bloated from fluid. I>O since admit. Tolerating clear liquids with slight nausea. Breathing stable without cough, congestion, or SOA. No chest pain. Up with therapy - did okay. No f/c. Objective Vital Signs Vital signs Vital Signs Date Time Temp Pulse Resp B/P Pulse Ox O2 Delivery O2 Flow Rate FiO2 05/19/16 07:48 96.4 80 18 155/78 97 Room Air 05/17/16 20:45 1.00 Height (Feet): 5 Height (Inches): 3.00 Weight (Kilograms): 93.900 General General Appearance: Alert, Obese, Well Nourished, Well Developed, Cooperative, Looks Stated Age Eyes (Brief) Eyes: FOUND: EOMI, PERRL, NOT FOUND: scleral icterus ENMT (Brief) ENMT: FOUND: hearing intact, mucosa moist Neck (Brief) Neck: FOUND: midline, NOT FOUND: nuchal rigidity, spasm Respiratory (Brief) Respiratory: FOUND: clear all maradiaga, equal bilaterally, other (No distress on RA ), NOT FOUND: rales, wheezes Cardiovascular (Brief) Cardiac: FOUND: pedal edema (+2 ), regular rate, regular rhythm Abdomen (Brief) Abdominal: FOUND: distended (mild ), soft, NOT FOUND: BS normo active x4 ( Hypoactive, but present ), tender (Brief) Female: FOUND: other (Hooks ) Extremities (Brief) Extremity : Side: Bilateral Extremity: leg Extremity Finding: FOUND: edema (+2 ), other (SCD ) Musculoskeletal (Brief) Musculoskeletal: FOUND: extremities move equally, NOT FOUND: deformity, loss of motion, spasm, tenderness Integumentary (Brief) Integumentary: FOUND: dry, pink, warm Neurologic (Brief) Neurological: FOUND: cranial 2-12 intact, motor (Intact ) Psychiatric (Brief) Psychiatric: FOUND: alert, attentive, normal affect, oriented Laboratory Laboratory Laboratory Tests 05/18/16 14:38 Laboratory Tests 05/18/16 14:39 Sepsis Diagnostic Criteria Sepsis Confirmed/Suspected Infection: Yes SIRS Criteria: WBC >=12,000 or <=4,000, Bands >= 10% Assessment & Plan Problems: (1) Colitis Status: Acute Assessment & Plan: Continuing ciprofloxacin and metronidazole. (2) Therapeutic opioid-induced constipation (OIC) Status: Resolved Assessment & Plan: Bowel function improving. (3) Hypothyroidism Onset Date: ~ 05/2016 Status: Chronic Assessment & Plan: Continue home medication (4) Chronic atrial fibrillation Status: Chronic Assessment & Plan: Heart rate sounding regular (5) Hypertension Status: Chronic Qualifiers: Hypertension type: essential hypertension Qualified Codes: I10 - Essential (primary) hypertension (6) Dyslipidemia Status: Chronic (7) LATISHA (obstructive sleep apnea) Status: Chronic (8) Degenerative arthritis of left knee Status: Chronic Qualifiers: Osteoarthritis type: primary Qualified Codes: M17.12 - Unilateral primary osteoarthritis, left knee Assessment & Plan: Patient did receive small amount of tramadol at her home dose. (9) Obesity (BMI 30.0-34.9) Status: Chronic Assessment & Plan: Trying liquid diet now Plan/Intensity of Service Continue Cipro and metronidazole for antimicrobial coverage of GI pathogens. Continue clear liquid diet - may advance as able. Dulcolax suppository today after lunch to help continue bowel motivation. Decrease IVF to 50 cc/hr. Will give Lasix 40mg IV x1 to help motivate fluid. Will change Protonix to oral. Restart antihypertensives. Restart Coumadin - monitor INR. Encourage ambulation. Recheck CMP and CBC in am. Case discussed with nursing and CM. Time spent with patient care greater than 35 minutes. DVT Prophylaxis: SCD'S Code Status Full Code Hospital Course Summary Disclaimer The hospital course summary below is not to be considered part of the above Progress Note. Hospital Course Summary 05/18/2016: Finally had the necessary bowel movement and his feelings symptomatically better. Nursing reports that she is still weak however an patient has asked to stay throughout the night. If she is not steady on her feet tomorrow would get physical therapy to assess if she needs a short course of rehab 05/18/16: Doing fair this afternoon. Pass significant stool yesterday - less gassiness, but feels more bloated from fluid. I>O since admit. Tolerating clear liquids with slight nausea. Breathing stable without cough, congestion, or SOA. No chest pain. Up with therapy - did okay. No f/c. Continue Cipro and metronidazole for antimicrobial coverage of GI pathogens. Continue clear liquid diet - may advance as able. Dulcolax suppository today after lunch to help continue bowel motivation. Decrease IVF to 50 cc/hr. Will give Lasix 40mg IV x1 to help motivate fluid. Will change Protonix to oral. Restart antihypertensives. Restart Coumadin - monitor INR. Encourage ambulation. Recheck CMP and CBC in am. IGOR NELSON MD May 19, 2016 12:38
[2016-05-19 13:38] VITALS: BP 160/71; PULSE 70
[2016-05-19] MEDS: OXYCODONE/APAP 5mg/325mg TABLET PO PRN (13:40)
[2016-05-19] MEDS: VERAPAMIL SR 180 MG TABLET PO SCH (13:40)
[2016-05-19 13:43] LABS: INR 1.44 (0.76-1.04); PROTHROMBIN TIME 15.7 SEC (9.31-12.49)
[2016-05-19] MEDS ORDERED: ENOXAPARIN 40 MG/0.4 ML INJECTION SQ ONE (14:15)
--- NOTE | 2016-05-19 14:15 | NUR ---
COUMADIN CONSULT (Initial): Dx: AFIB Baseline INR = 1.44. Will give Warfarin 4mg today. Lovenox 40mg X1 is also being given today. Will continue to monitor and make adjustments accordingly. Thank you.
--- NOTE | 2016-05-19 16:20 | NUR ---
DC JO JO CATHETER DC'D AT THIS TIME, PT DENIES PAIN. WILL CONTINUE TO MONITOR.
[2016-05-19 16:50] VITALS: BP 154/76; PULSE 90; RESP 16; TEMP 97.7; O2SAT 94
--- NOTE | 2016-05-19 16:56 | PNPDOC ---
Subjective Date DATE: 05/19/16 TIME: 16:52 Feeling better since she is able to move her bowels. She is wondering about her cancer injections. Objective Vital Signs Vital Signs 05/19/16 05/19/16 07:48 13:38 Temp 96.4 Pulse 80 70 Resp 18 B/P 155/78 160/71 Pulse Ox 97 O2 Delivery Room Air Height (Feet): 5 Height (Inches): 3.00 Weight (Kilograms): 93.900 General No Acute Distress Respiratory (Brief) Respiratory: FOUND: clear all maradiaga, equal bilaterally Cardiovascular (Brief) Cardiac: FOUND: regular rate, regular rhythm Abdomen (Brief) Abdominal: FOUND: BS normo active x4, soft Psychiatric (Brief) FOUND: alert, attentive, normal affect, oriented Laboratory Laboratory Tests Test 05/19/16 13:31 Prothromb Time International Ratio 1.44 Sepsis Diagnostic Criteria Sepsis Confirmed/Suspected Infection: Yes SIRS Criteria: WBC >=12,000 or <=4,000, Bands >= 10% Assessment & Plan Assessment Recurrent breast cancer with interval development of bone mets. She was scheduled to start Faslodex and Xgeva tomorrow in the office. Narcotic-related constipation, resolved. Plan/Intensity of Service Will arrange for faslodex and Xgeva as out patient. Code Status Full Code Hospital Course Summary Disclaimer The visit summary below is not to be considered part of the above Progress Note. Hospital Course Summary 05/18/2016: Finally had the necessary bowel movement and his feelings symptomatically better. Nursing reports that she is still weak however an patient has asked to stay throughout the night. If she is not steady on her feet tomorrow would get physical therapy to assess if she needs a short course of rehab 05/18/16: Doing fair this afternoon. Pass significant stool yesterday - less gassiness, but feels more bloated from fluid. I>O since admit. Tolerating clear liquids with slight nausea. Breathing stable without cough, congestion, or SOA. No chest pain. Up with therapy - did okay. No f/c. Continue Cipro and metronidazole for antimicrobial coverage of GI pathogens. Continue clear liquid diet - may advance as able. Dulcolax suppository today after lunch to help continue bowel motivation. Decrease IVF to 50 cc/hr. Will give Lasix 40mg IV x1 to help motivate fluid. Will change Protonix to oral. Restart antihypertensives. Restart Coumadin - monitor INR. Encourage ambulation. Recheck CMP and CBC in am. MARIXA LIU MD May 19, 2016 16:56
--- NOTE | 2016-05-19 19:00 | NUR ---
SHIFT SUMMARY PT ALERT AND ORIENTED X3. PT ON RA, DENIES SOA. DENIES N/V. RATES BACK PAIN 5/10, PRN PERCOCET ADMINISTERED THIS SHIFT AND PT REPOSITIONED FREQUENTLY. PT UP WITH STAND BY ASSIST, GAIT BELT, WALKER. MORE STEADY WITH WALKER THAN WITH CANE. ADEQUATE URINE OUTPUT, PT REPORTS NO TROUBLE WITH VOIDING AFTER JO CATHETER REMOVAL. BM THIS SHIFT. IVF INFUSING ORDERED INTO RIGHT CHEST PAC, PATENT, ABLE TO ASPIRATE. PT ABLE TO MAKE NEEDS KNOWN. CHAIR ALARM ON, CALL LIGHT WITHIN REACH.
[2016-05-19] MEDS: PRAVASTATIN 40 MG TABLET PO SCH (21:54)
[2016-05-20 00:22] VITALS: BP 136/57; PULSE 58; RESP 18; TEMP 96.3; O2SAT 96
--- NOTE | 2016-05-20 04:04 | NUR ---
Status Pt ambulated down [facility] and back to room with GB and walker. Tolerated well. Gave Ketorolac in evening for generalized discomfort and back ache. Pt reported some relief. On home cpap during night. VSS. Bed alarm on and call light within reach. Will continue to monitor.
[2016-05-20] MEDS: PANTOPRAZOLE 40 MG TABLET PO SCH (04:41)
[2016-05-20] MEDS: OXYCODONE/APAP 5mg/325mg TABLET PO PRN ×2 (04:42→21:35)
[2016-05-20] MEDS: LEVOTHYROXINE 75 MCG TABLET PO SCH (04:42)
[2016-05-20 05:30] LABS: BASOPHILS % (AUTO) 0.5 % (0-2); EOSINOPHILS # (AUTO) 0.4 T/MM3 (0-0.5); EOSINOPHILS % (AUTO) 4.4 % (0-4); HGB - HEMOGLOBIN 10.7 GM/DL (12-16); IMMATURE GRANULOCYTE # (AUTO) 0.03 T/MM3 (0.00-0.03); IMMATURE GRANULOCYTE % (AUTO) 0.4 % (0.0-0.5); LYMPHOCYTES # (AUTO) 1.5 T/MM3 (1-4.8); MEAN CORPUSCULAR HGB 32.1 UUG (26-34); MEAN CORPUSCULAR HGB CONC(MCHC 32.4 GM/DL (31-37); MEAN CORPUSCULAR VOLUME 99.1 UM3 (80-100); MEAN PLATELET VOLUME 10.5 UM3 (9.4-12.4); MONOCYTES # (AUTO) 0.9 T/MM3 (0-0.8); MONOCYTES % (AUTO) 10.9 % (0-9.0); NEUTROPHILS #(AUTO)-ABSOLUTE 5.2 T/MM3 (1.8-7.7); NEUTROPHILS % (AUTO) 64.8 % (33-66); RED BLOOD COUNT 3.33 M/MM3 (4.00-5.20)
[2016-05-20 05:34] LABS: INR 1.38 (0.76-1.04)
[2016-05-20 05:36] LABS: ALBUMIN 3.1 G/DL (3.5-5.0); ALBUMIN/GLOBULIN RATIO 1.1 RATIO (1.1-2.2); ALKALINE PHOSPHATASE 117 U/L (38-126); ALT (SGPT) 29 U/L (9-52); ANION GAP 9 MEQ/L (5-15); AST (SGOT) 27 U/L (14-36); BUN/CREATININE RATIO 15 RATIO (6-26); CALCIUM 9.3 MG/DL (8.4-10.2); CHLORIDE 107 MEQ/L (98-107); CO2 - CARBON DIOXIDE 25 MEQ/L (22-30); CREATININE 1.1 MG/DL (0.7-1.2); GLOMERULAR FILTRATION RATE 47; GLUCOSE 92 MG/DL (65-110); POTASSIUM 3.6 MEQ/L (3.6-5); SODIUM 141 MEQ/L (134-144)
[2016-05-20 07:52] VITALS: BP 142/67; PULSE 64; RESP 18; TEMP 96.1; O2SAT 99
[2016-05-20] MEDS: CIPROFLOXACIN 400 MG in D5W 200 ML IV SCH ×2 (08:46→21:35)
[2016-05-20] MEDS: VERAPAMIL SR 180 MG TABLET PO SCH (08:47)
[2016-05-20] MEDS: LISINOPRIL 40 MG TABLET PO SCH (08:47)
[2016-05-20] MEDS ORDERED: ENOXAPARIN 40 MG/0.4 ML INJECTION SQ ONE (09:45)
--- NOTE | 2016-05-20 09:50 | NUR ---
COUMADIN CONSULT (Recurring): Today's INR = 1.38. (Patient is receiving a one-time enoxaparin today) Will give Warfarin 5mg today. Will continue to monitor & make adjustments accordingly. Thank you.
[2016-05-20] MEDS ORDERED: FUROSEMIDE 20 MG TABLET PO ONE (10:15)
[2016-05-20] MEDS ORDERED: NITROGLYCERIN 0.4 MG SUBLINGUAL TABLET SL PRN (10:15)
[2016-05-20] MEDS ORDERED: ACETAMINOPHEN 325 MG TABLET PO PRN (10:15)
[2016-05-20] MEDS ORDERED: MILK OF MAGNESIA 30 ML SUSP PO PRN (10:15)
[2016-05-20] MEDS ORDERED: BISACODYL 10 MG SUPPOSITORY RECTALLY PRN (10:15)
[2016-05-20] MEDS ORDERED: MILK OF MAGNESIA 30 ML SUSP PO ONE (10:15)
[2016-05-20] MEDS ORDERED: PRN ORDERS MC (10:15)
[2016-05-20] MEDS ORDERED: MAG-AL + SIM LIQUID 30 ML UDC PO PRN (10:15)
--- NOTE | 2016-05-20 10:32 | PNPDOC ---
Subjective Date DATE: 05/20/16 TIME: 10:17 Subjective F/U: Colitis Doing better today. Slight nausea, but feels is from [place]. No ab pain. Decreased stool output-feels pretty 'cleaned out' from stools the other day. Urinating well without Hooks. Breathing stable. No chest pain. No f/c. Strength improving- walking more (notes slightly more tired today with walking than yesterday). More swelling to legs. Objective Vital Signs Vital signs Vital Signs Date Time Temp Pulse Resp B/P Pulse Ox O2 Delivery O2 Flow Rate FiO2 05/20/16 07:52 96.1 64 18 142/67 99 Room Air 05/17/16 20:45 1.00 Height (Feet): 5 Height (Inches): 3.00 Weight (Kilograms): 93.900 General General Appearance: Alert, Obese, Orientated x 3, Well Nourished, Well Developed, Cooperative, No Acute Distress, Looks Stated Age Eyes (Brief) Eyes: FOUND: EOMI, PERRL, NOT FOUND: scleral icterus ENMT (Brief) ENMT: FOUND: hearing intact, mucosa moist Neck (Brief) Neck: FOUND: midline, NOT FOUND: nuchal rigidity, spasm Respiratory (Brief) Respiratory: FOUND: clear all maradiaga, equal bilaterally, NOT FOUND: rales, wheezes Cardiovascular (Brief) Cardiac: FOUND: pedal edema (+2), regular rate, regular rhythm Abdomen (Brief) Abdominal: FOUND: soft, NOT FOUND: BS normo active x4 (Decreased, but present ) , distended, tender Extremities (Brief) Extremity : Side: Bilateral Extremity: leg Extremity Finding: FOUND: edema (+2) Musculoskeletal (Brief) Musculoskeletal: FOUND: extremities move equally, NOT FOUND: deformity, loss of motion, spasm, tenderness Integumentary (Brief) Integumentary: FOUND: dry, warm Neurologic (Brief) Neurological: FOUND: cranial 2-12 intact, motor (Intact ) Psychiatric (Brief) Psychiatric: FOUND: alert, attentive, normal affect, oriented Laboratory Laboratory Laboratory Tests 05/18/16 14:38 05/20/16 04:52 Laboratory Tests 05/18/16 14:39 05/20/16 04:52 Sepsis Diagnostic Criteria Sepsis Confirmed/Suspected Infection: Yes SIRS Criteria: WBC >=12,000 or <=4,000, Bands >= 10% Assessment & Plan Problems: (1) Colitis Status: Acute Assessment & Plan: Continuing ciprofloxacin and metronidazole. (2) Therapeutic opioid-induced constipation (OIC) Status: Resolved Assessment & Plan: Bowel function improving. (3) Hypothyroidism Onset Date: ~ 05/2016 Status: Chronic Assessment & Plan: Continue home medication (4) Chronic atrial fibrillation Status: Chronic Assessment & Plan: Heart rate sounding regular (5) Hypertension Status: Chronic Qualifiers: Hypertension type: essential hypertension Qualified Codes: I10 - Essential (primary) hypertension (6) Dyslipidemia Status: Chronic (7) LATISHA (obstructive sleep apnea) Status: Chronic (8) Degenerative arthritis of left knee Status: Chronic Qualifiers: Osteoarthritis type: primary Qualified Codes: M17.12 - Unilateral primary osteoarthritis, left knee Assessment & Plan: Patient did receive small amount of tramadol at her home dose. (9) Obesity (BMI 30.0-34.9) Status: Chronic Plan/Intensity of Service Continue Cipro and metronidazole for antimicrobial coverage of GI pathogens. Will give MOM now to help stools - Dulcolax suppository after lunch if no stool. Discussed with pt about various medications to help maintain routine bowel function in the outpatient setting. D/C IVF as taking po well. Will change Protonix to oral. Lasix 20mg po x1 to help edema, will give potassium 20mEq with lunch due to Lasix use. Encourage ambulation and elevation of legs to help motivate edema. Continue Coumadin. Discussed with pt about need for colonoscopy in outpatient setting - could be done in 1-2 weeks. Hope for discharge home this afternoon. Case discussed with nursing and CM. Time spent with patient care greater than 35 minutes. 1830 Reassessed pt. Has been having significant abdominal bloating and spasm-pain is uncomfortable. Some flatus, but not stool. Will hold on plans for discharge today due to pt's symptoms. Continue with care and support. DVT Prophylaxis: Lovenox, Coumadin Code Status Full Code Hospital Course Summary Disclaimer The hospital course summary below is not to be considered part of the above Progress Note. Hospital Course Summary 05/18/2016: Finally had the necessary bowel movement and his feelings symptomatically better. Nursing reports that she is still weak however an patient has asked to stay throughout the night. If she is not steady on her feet tomorrow would get physical therapy to assess if she needs a short course of rehab 05/18/16: Doing fair this afternoon. Pass significant stool yesterday - less gassiness, but feels more bloated from fluid. I>O since admit. Tolerating clear liquids with slight nausea. Breathing stable without cough, congestion, or SOA. No chest pain. Up with therapy - did okay. No f/c. Continue Cipro and metronidazole for antimicrobial coverage of GI pathogens. Continue clear liquid diet - may advance as able. Dulcolax suppository today after lunch to help continue bowel motivation. Decrease IVF to 50 cc/hr. Will give Lasix 40mg IV x1 to help motivate fluid. Will change Protonix to oral. Restart antihypertensives. Restart Coumadin - monitor INR. Encourage ambulation. Recheck CMP and CBC in am. 05/20 Doing better today. Slight nausea, but feels is from [place]. No ab pain. Decreased stool output-feels pretty 'cleaned out' from stools the other day. Urinating well without Hooks. Breathing stable. No chest pain. No f/c. Strength improving- walking more (notes slightly more tired today with walking than yesterday). More swelling to legs. Continue Cipro and metronidazole for antimicrobial coverage of GI pathogens. Will give MOM now to help stools - Dulcolax suppository after lunch if no stool. Discussed with pt about various medications to help maintain routine bowel function in the outpatient setting. D/C IVF as taking po well. Will change Protonix to oral. Lasix 20mg po x1 to help edema, will give potassium 20mEq with lunch due to Lasix use. Encourage ambulation and elevation of legs to help motivate edema. Continue Coumadin. Discussed with pt about need for colonoscopy in outpatient setting - could be done in 1-2 weeks. Hope for discharge home this afternoon. 1830 Reassessed pt. Has been having significant abdominal bloating and spasm-pain is uncomfortable. Some flatus, but not stool. Will hold on plans for discharge today due to pt's symptoms. Continue with care and support. IGOR NELSON MD May 20, 2016 10:21
--- NOTE | 2016-05-20 11:02 | NUR ---
Status Patient up with assist of 1. States she feels much better. Breathing comfortably on RA. Up in the chair, states she always sits in a chair. Let patient know her skin can breakdown with only one position. Patient denies feeling constipated at this time.
[2016-05-20] MEDS ORDERED: WARFARIN 5 MG TABLET PO SCH (12:00)
[2016-05-20] MEDS ORDERED: POTASSIUM CHLORIDE 20 MEQ TABLET PO ONE (12:30)
[2016-05-20 16:09] VITALS: BP 141/63; PULSE 56; RESP 16; TEMP 97.3; O2SAT 95
[2016-05-20] MEDS: TRAMADOL 50 MG TABLET PO PRN (16:15)
--- NOTE | 2016-05-20 18:30 | NUR ---
Status Patient continues with abdominal cramping. Not able to eat much. Patient states it feels like the stool gets hung up on the the left part of the abdomen. Up with 1.
[2016-05-20 20:00] VITALS: PULSE 56; RESP 16
[2016-05-20] MEDS: PRAVASTATIN 40 MG TABLET PO SCH (21:35)
[2016-05-21] VITALS (8 sets, daily range): BP systolic 99–152; BP diastolic 49–71; PULSE 57–84; RESP 16; TEMP 96.6–97.9; O2SAT 95–97
--- NOTE | 2016-05-21 04:57 | NUR ---
SHIFT SUMMARY PT ALERT AND ORIENTED X 3. PLEASANT AND COOPERATIVE WITH CARES. PT TALKS ABOUT HER CANCER IN THE PAST AND NOW. PT DENIES SOA, PAIN, AT THIS TIME. PT TOKE PERCOCET AT 2014 FOR BACK PAIN 10/22. SHE WAS UP TO THE BR WITH 1 ASSIST, GAIT BELT AND FWW. GAIT IS STEADY. PT CALLS FOR NEEDS PRN. SHE SLEEPS IN A CHAIR AT NIGHT, WITH SCD'S ON. PT STATES FEELING A NEED TO HAVE A BM. M.O.M. GIVEN PER ORDER AND PT'S REQUEST. CHAIR ALARM ON. CALL LIGHT WITHIN REACH.
[2016-05-21 05:10] LABS: BASOPHILS % (AUTO) 0.3 % (0-2); EOSINOPHILS # (AUTO) 0.4 T/MM3 (0-0.5); EOSINOPHILS % (AUTO) 4.1 % (0-4); HCT - HEMATOCRIT 32.3 % (36-46); HGB - HEMOGLOBIN 10.3 GM/DL (12-16); IMMATURE GRANULOCYTE # (AUTO) 0.12 T/MM3 (0.00-0.03); IMMATURE GRANULOCYTE % (AUTO) 1.3 % (0.0-0.5); INR 1.38 (0.76-1.04); LYMPHOCYTES # (AUTO) 1.6 T/MM3 (1-4.8); MEAN CORPUSCULAR HGB 31.3 UUG (26-34); MEAN CORPUSCULAR HGB CONC(MCHC 31.9 GM/DL (31-37); MEAN CORPUSCULAR VOLUME 98.2 UM3 (80-100); MEAN PLATELET VOLUME 10.8 UM3 (9.4-12.4); MONOCYTES # (AUTO) 1.4 T/MM3 (0-0.8); MONOCYTES % (AUTO) 14.7 % (0-9.0); NEUTROPHILS % (AUTO) 62.6 % (33-66); RED BLOOD COUNT 3.29 M/MM3 (4.00-5.20); WBC - WHITE BLOOD COUNT 9.6 T/MM3 (4.5-11.0)
[2016-05-21 05:17] LABS: ANION GAP 9 MEQ/L (5-15); BUN/CREATININE RATIO 16 RATIO (6-26); CALCIUM 9.3 MG/DL (8.4-10.2); CHLORIDE 105 MEQ/L (98-107); CO2 - CARBON DIOXIDE 24 MEQ/L (22-30); CREATININE 0.9 MG/DL (0.7-1.2); GLOMERULAR FILTRATION RATE 60; GLUCOSE 93 MG/DL (65-110); POTASSIUM 3.8 MEQ/L (3.6-5); SODIUM 138 MEQ/L (134-144)
[2016-05-21] MEDS: PANTOPRAZOLE 40 MG TABLET PO SCH (06:24)
[2016-05-21] MEDS: LEVOTHYROXINE 75 MCG TABLET PO SCH (06:24)
[2016-05-21] MEDS: KETOROLAC 15mg/ml INJECTION IV PRN (06:24)
[2016-05-21] MEDS: OXYCODONE/APAP 5mg/325mg TABLET PO PRN (06:25)
--- NOTE | 2016-05-21 08:07 | NUR ---
WARFARIN CONSULT S: 81 y/o F on warfarin for afib; home dose is 2.5 mg daily except 5 mg on Wed/Mon. Goal INR 2-3. O: Date INR Warfarin Dose 05/19 1.44 4 mg 05/20 1.38 5 mg 05/21 1.38 PLAN: 5 mg A/P: INR subtherapeutic. Significant drug-drug interaction with ciprofloxacin and warfarin (increases INR). Will order warfarin 5 mg PO today. Will continue to monitor & make adjustments accordingly. Thank you for the consult. Ying Villa, PharmD, BCPS
[2016-05-21] MEDS: LISINOPRIL 40 MG TABLET PO SCH (08:38)
[2016-05-21] MEDS: VERAPAMIL SR 180 MG TABLET PO SCH (08:38)
[2016-05-21] MEDS: CIPROFLOXACIN 400 MG in D5W 200 ML IV SCH (08:38)
--- NOTE | 2016-05-21 09:45 | NUR ---
CM CM VISITED PT. CM DISCUSSED D/C PLAN. PT HAS DECIDED TO HAVE [facility] AT TIME OF D/C. CM LEFT VM FOR [facility] WITH HOME HEALTH WITH ANTICIPATED D/C DATE OF TODAY. PT IS AWARE TO CONTACT CM IF NEEDS [facility].
[2016-05-21] MEDS ORDERED: ENOXAPARIN 40 MG/0.4 ML INJECTION SQ ONE (10:15)
[2016-05-21] MEDS ORDERED: WARFARIN 5 MG TABLET PO ONE (12:00)
--- NOTE | 2016-05-21 13:00 | NUR ---
STATUS PT ALERT AND ORIENTED X3. PT ON RA, DENIES SOA. DENIES PAIN AT THIS TIME. UP WITH STAND BY ASSIST, GAIT BELT, WALKER, STEADY ON FEET. RIGHT CHEST PAC PATENT, ABLE TO ASPIRATE. ADEQUATE URINE OUTPUT. PT ABLE TO MAKE NEEDS KNOWN. CALL LIGHT WITHIN REACH.
--- NOTE | 2016-05-21 13:44 | NUR ---
MELODY OLIVER LEFT MESSAGE FOR JULIO AT [facility] PT D/C FROM [facility] TODAY AND NEEDING HOME HEALTH SERVICES.
--- NOTE | 2016-05-21 13:54 | PNPDOC ---
Subjective Date DATE: 05/21/16 TIME: 13:48 Subjective F/U: Colitis Doing better today. Ab much less uncomfortable. Less crampy discomfort. Passing stool. No nausea. Eating well. Urinating well. Breathing without difficulty. No chest pain. Ambulating well in halls - is finding Walker very helpful (has one at home and plans to use at home). Objective Vital Signs Vital signs Vital Signs Date Time Temp Pulse Resp B/P Pulse Ox O2 Delivery O2 Flow Rate FiO2 05/21/16 12:50 99/53 05/21/16 09:00 58 05/21/16 07:18 96.6 16 95 Room Air 05/17/16 20:45 1.00 Height (Feet): 5 Height (Inches): 3.00 Weight (Kilograms): 94.300 General General Appearance: Alert, Obese, Orientated x 3, Well Nourished, Well Developed, Cooperative, No Acute Distress, Looks Stated Age Eyes (Brief) Eyes: FOUND: EOMI, PERRL, NOT FOUND: scleral icterus ENMT (Brief) ENMT: FOUND: hearing intact, mucosa moist Neck (Brief) Neck: FOUND: midline, NOT FOUND: nuchal rigidity, spasm Respiratory (Brief) Respiratory: FOUND: clear all maradiaga, equal bilaterally, NOT FOUND: rales, wheezes Cardiovascular (Brief) Cardiac: FOUND: pedal edema (+2 ), regular rate, regular rhythm Abdomen (Brief) Abdominal: FOUND: BS normo active x4, soft, NOT FOUND: distended, tender Extremities (Brief) Extremity : Side: Bilateral Extremity: leg Extremity Finding: FOUND: edema (+2 ) Musculoskeletal (Brief) Musculoskeletal: FOUND: extremities move equally, NOT FOUND: deformity, loss of motion, spasm, tenderness Integumentary (Brief) Integumentary: FOUND: dry, warm Neurologic (Brief) Neurological: FOUND: cranial 2-12 intact, motor (Intact ) Psychiatric (Brief) Psychiatric: FOUND: alert, attentive, normal affect, oriented Laboratory Laboratory Laboratory Tests 05/20/16 04:52 05/21/16 04:03 Laboratory Tests 05/20/16 04:52 05/21/16 04:03 Sepsis Diagnostic Criteria Sepsis Confirmed/Suspected Infection: Yes SIRS Criteria: WBC >=12,000 or <=4,000, Bands >= 10% Assessment & Plan Problems: (1) Colitis Status: Acute (2) Therapeutic opioid-induced constipation (OIC) Status: Resolved Assessment & Plan: Bowel function improving. (3) Hypothyroidism Onset Date: ~ 05/2016 Status: Chronic Assessment & Plan: Continue home medication (4) Chronic atrial fibrillation Status: Chronic Assessment & Plan: Heart rate sounding regular (5) Hypertension Status: Chronic Qualifiers: Hypertension type: essential hypertension Qualified Codes: I10 - Essential (primary) hypertension (6) Dyslipidemia Status: Chronic (7) LATISHA (obstructive sleep apnea) Status: Chronic (8) Degenerative arthritis of left knee Status: Chronic Qualifiers: Osteoarthritis type: primary Qualified Codes: M17.12 - Unilateral primary osteoarthritis, left knee Assessment & Plan: Patient did receive small amount of tramadol at her home dose. (9) Obesity (BMI 30.0-34.9) Status: Chronic Plan/Intensity of Service Will d/c to home. Metronidazole for 5 more days for colitis coverage. Encourage pt on various medications to help bowel function. Will need Colonoscopy in 1-2 week. F/U with Dr Adan in 1 week at in [place]. See orders for details. DVT Prophylaxis: Coumadin Code Status Full Code Hospital Course Summary Disclaimer The hospital course summary below is not to be considered part of the above Progress Note. Hospital Course Summary 05/18/2016: Finally had the necessary bowel movement and his feelings symptomatically better. Nursing reports that she is still weak however an patient has asked to stay throughout the night. If she is not steady on her feet tomorrow would get physical therapy to assess if she needs a short course of rehab 05/18/16: Doing fair this afternoon. Pass significant stool yesterday - less gassiness, but feels more bloated from fluid. I>O since admit. Tolerating clear liquids with slight nausea. Breathing stable without cough, congestion, or SOA. No chest pain. Up with therapy - did okay. No f/c. Continue Cipro and metronidazole for antimicrobial coverage of GI pathogens. Continue clear liquid diet - may advance as able. Dulcolax suppository today after lunch to help continue bowel motivation. Decrease IVF to 50 cc/hr. Will give Lasix 40mg IV x1 to help motivate fluid. Will change Protonix to oral. Restart antihypertensives. Restart Coumadin - monitor INR. Encourage ambulation. Recheck CMP and CBC in am. 3/8 Doing better today. Slight nausea, but feels is from [place]. No ab pain. Decreased stool output-feels pretty 'cleaned out' from stools the other day. Urinating well without Hooks. Breathing stable. No chest pain. No f/c. Strength improving- walking more (notes slightly more tired today with walking than yesterday). More swelling to legs. Continue Cipro and metronidazole for antimicrobial coverage of GI pathogens. Will give MOM now to help stools - Dulcolax suppository after lunch if no stool. Discussed with pt about various medications to help maintain routine bowel function in the outpatient setting. D/C IVF as taking po well. Will change Protonix to oral. Lasix 20mg po x1 to help edema, will give potassium 20mEq with lunch due to Lasix use. Encourage ambulation and elevation of legs to help motivate edema. Continue Coumadin. Discussed with pt about need for colonoscopy in outpatient setting - could be done in 1-2 weeks. Hope for discharge home this afternoon. 1830 Reassessed pt. Has been having significant abdominal bloating and spasm-pain is uncomfortable. Some flatus, but not stool. Will hold on plans for discharge today due to pt's symptoms. Continue with care and support. 05/21 Doing better today. Ab much less uncomfortable. Less crampy discomfort. Passing stool. No nausea. Eating well. Urinating well. Breathing without difficulty. No chest pain. Ambulating well in halls - is finding Walker very helpful (has one at home and plans to use at home). Will d/c to home. Metronidazole for 5 more days for colitis coverage. Encourage pt on various medications to help bowel function. Will need Colonoscopy in 1-2 week. F/U with Dr Adan in 1 week at in [place]. See orders for details. IGOR NELSON MD May 21, 2016 13:52
[2016-05-21] MEDS ORDERED: BISA10SU8 RECTALLY (13:56)
[2016-05-21] MEDS ORDERED: MAGN400O4 PO (13:56)
[2016-05-21] MEDS ORDERED: METR-116 PO (13:56)
--- NOTE | 2016-05-21 17:22 | NUR ---
DISMISSAL PT DISMISSED BY WHEELCHAIR TO HOME AT THIS TIME, ACCOMPANIED BY . DISMISSAL INSTRUCTIONS REVIEWED, QUESTIONS ANSWERED. PT EXPRESSES UNDERSTANDING OF DISMISSAL INSTRUCTIONS, INCLUDING BUT NOT LIMITED TO, S/S TO REPORT TO WELL MEDICATION REGIMEN. PT EXPRESSES UNDERSTANDING OF FOLLOW-UP APPOINTMENT. PRESCRIPTION CALLED IN TO [facility] BY ANDREA BECKFORD. PAC DE-ACCESSED, PT TOLERATED WELL. HOME-HEALTH TO CONTACT PT TOMORROW. BELONGINGS GATHERED.
--- NOTE | 2016-05-23 14:16 | DSF ---
DATE OF INITIATION OF OBSERVATION: 05/16/2016 ADMISSION DIAGNOSIS Colitis. DISCHARGE DIAGNOSIS Colitis--clinically improved. ASSOCIATED CONDITIONS AND COMPLICATIONS Therapeutic opioid-induced constipation--resolved. Hypothyroidism. Chronic atrial fibrillation. Hypertension. Dyslipidemia. Obstructive sleep apnea. DJD of left knee. Gait instability. Breast carcinoma with recurrence and development of bony metastasis. Obesity with BMI at 36.8. PROCEDURES None. CONSULTS Dr. Torres--Oncology. PT, OT. CLINICAL RESUME Nora Ulloa is an 81-year-old female who follows with Dr. Adan for primary care and Dr. Torres for oncology. The day prior to presentation she began having abdominal pain. Pain was colicky, crossed the abdomen. It was generalized but worse in the left upper quadrant. She states that since she was started on oxycodone for her back pain she has been having issues of intermittent constipation. She has been trying laxatives at home. The morning of presentation, she did use an oil-based Fleet's enema with some mild relief. Unfortunately, pain has since returned and has worsened. She has been unable to keep down even clear liquids. She has had recurrent nausea and vomiting and some chills. She has not had any true pain per se. She denies any malaise or viral prodrome. For complete details of the H&P refer to that document. LABORATORY White blood count is 18.2, with 78% neutrophils and 9% bands. Hemoglobin is 12.5, with hematocrit 38.4, MCV 99.0, and platelets 286,000. Serum sodium is 136, potassium 4.3, chloride 102, CO2 21, BUN 24, with creatinine 1.0, GFR 53, and blood glucose 182. AST is 47 with ALT 30. Lipase is 47. Procalcitonin is 1.10. INR is 1.44. UA reveals elevated specific gravity greater than or equal to 1.030 with 1+ protein, 1+ bilirubin, and 2+ bacteria. HOSPITAL COURSE The patient was placed in outpatient observation status at [facility] under the hospitalist service. With her elevated white count we were worried for an infectious etiology of colon. She was started on ciprofloxacin for empiric antimicrobial coverage. IV fluids were initiated for hydration. We did work on bowel motivation during the hospitalization. By hospital day #1, her white count did show elevation of 21.1. With the patient's persistent symptoms, not resolving with appropriate care initiated in outpatient setting, we did move her to inpatient admission status. Cipro was continued. IV fluids were continued. Medications to help promote bowel motility were initiated. She finally did have a significant bowel movement by 05/18/2016. By 05/19/2016, she was still feeling very bloaty, which she attributed to fluids. Diet was advanced to clear liquids, and she was eating well with only slight nausea. IV fluids were decreased to 50 mL an hour, and she was given 40 mg IV Lasix to help motivate fluid. Her antihypertensives and Coumadin were restarted on 05/19/2016. By 05/20/2016, she was still having some nausea and abdominal bloating and discomfort. Stool output was decreased, but she felt she was fairly cleaned out from the prior day. Hooks catheter had been removed, and she was urinating well. We did provide extra oral Lasix to help motivate edema and also gave oral potassium with lunch secondary to Lasix use. We encouraged nursing to work with the patient on ambulation. We did discuss about possible discharge to home that day as her white count had normalized and lab was looking well. When she was reassessed that evening, she was still having significant abdominal bloating and spasm. While she was passing flatus, she was not having stool. We held on discharge plans due to her symptoms. By 05/21/2016, she was feeling much better. Her abdomen was much less uncomfortable and she was having less crampy discomfort. She was passing stool. She was eating well. She is urinating without difficulty. Vitals were stable and she was afebrile. In light of her improvement, we discussed about discharge to home and the patient felt agreeable to this. We will be continuing with metronidazole for five more days for colitis coverage. During the hospitalization, we discussed about undergoing colonoscopy in the upcoming weeks--patient was agreeable to this. NARRATIVE DISCLAIMER: Above narrative is a brief summary of the patient's hospitalization. For complete details of the hospital course, refer to the medical record. DISCHARGE CONDITION Stable/good. DIET Low sodium. ACTIVITIES Walker for assistance. MEDICATIONS Metronidazole 500 mg p.o. t.i.d. x5 days. Milk of Magnesia 30 mg daily p.r.n. constipation. Dulcolax suppository 10 mg DE daily p.r.n. constipation. Vision vitamins b.i.d. Calcium with vitamin D 600/400 mg two tablets daily. Colace 100 mg daily p.r.n. Furosemide 20 mg one to two tablets daily. Latanoprost one drop both eyes q.h.s. Synthroid 0.075 mg daily. Lisinopril 40 mg daily. Metoprolol tartrate 75 mg b.i.d. Multivitamin daily. Percocet 5/325 mg one every 4 to 6 hours p.r.n. pain. MiraLAX 17 grams daily p.r.n. constipation. Pravastatin 80 mg q.h.s. Tramadol 50 mg one to two q.6h. p.r.n. pain. CoQ10 200 mg daily. Verapamil 360 mg daily. Warfarin 5 mg Wednesday and Wednesday with 2.5 mg the rest of the week. FOLLOWUP Patient will follow with Dr. Adan on 05/27/2016 at 11:30 a.m. Recommend recheck INR at that time. Additionally, the patient should be set up to have a colonoscopy in the upcoming weeks. INSTRUCTIONS TO PATIENT Patient was instructed on her diagnoses and treatments provided. She was encouraged to be adherent with medications. She will watch for signs of bleeding and bruising. She will call if temperature is greater than 100.4 or if she develops intractable diarrhea. Should problems or need occur, she can be in contact with Dr. Adan or Dr. Torres. If symptoms become quite dire, she can present to the emergency room for acute evaluation. She voiced understanding of the above. Time spent with discharge greater than 30 minutes. . CHIND
== END 2016-05-21 17:22 | disposition home health service (06) | DRG 392 ==
LOC: ED 12:20 → EDHOLD 17:17 → MED 17:35 → OBSVTOIN 05-17 16:12
PROVIDERS: ADMIT Family Medicine; ATTEND Family Medicine
DX: K52.9 Noninfective gastroenteritis and colitis, unspecified (principal); C79.51 Secondary malignant neoplasm of bone; K59.03 Drug induced constipation; E03.9 Hypothyroidism, unspecified; I48.2 Chronic atrial fibrillation; I10 Essential (primary) hypertension; E66.9 Obesity, unspecified; M17.12 Unilateral primary osteoarthritis, left knee; T40.2X5A Adverse effect of other opioids, initial encounter; M54.9 Dorsalgia, unspecified; E78.5 Hyperlipidemia, unspecified; C50.919 Malignant neoplasm of unspecified site of unspecified female breast; G47.33 Obstructive sleep apnea (adult) (pediatric); Z79.01 Long term (current) use of anticoagulants; Z92.21 Personal history of antineoplastic chemotherapy; Z95.0 Presence of cardiac pacemaker; Z68.36 Body mass index [BMI] 36.0-36.9, adult; Z79.891 Long term (current) use of opiate analgesic; R26.9 Unspecified abnormalities of gait and mobility; Z79.899 Other long term (current) drug therapy
CPT/HCPCS: 36415; 80048; 80053; 81001; 83690; 84145; 85025; 85610; 96361; 96365; 96366; 96367; 96372; 96375; 99218

== ENCOUNTER → 2016-06-19 | Outpatient (CLI) | payer MEDICARE, OTHER ==
[~2016-06-19] MED LIST changes: -ACET-62 PO; +ANAS1TAB8 PO; +BETA1TAB17 PO; +BISA10SU8 RECTALLY; +CALC-52 PO; +CALC1CAP22 PO; +CYAN100T PO; +DOCU-168 PO; +HYDR-4246 PO; +LEVO100T12 PO; -LISI-621 PO; +LISI40TA4 PO; +MAGN400O4 PO; +METR-116 PO; +MULT80TA PO; -OMEP20CA81 PO; +OXYC-541 PO; -OXYC1TAB8 PO; +POLY119P3 PO; -PRAV40TA46 PO; +PRAV80TA23 PO
[2016-06-19 10:35] LABS: ANION GAP 14 MEQ/L (5-15); BUN/CREATININE RATIO 21 RATIO (6-26); CALCIUM 10.3 MG/DL (8.4-10.2); CHLORIDE 104 MEQ/L (98-107); CO2 - CARBON DIOXIDE 26 MEQ/L (22-30); CREATININE 1.1 MG/DL (0.7-1.2); GLOMERULAR FILTRATION RATE 47; GLUCOSE 159 MG/DL (65-110); MAGNESIUM 1.7 MG/DL (1.6-2.3); PHOSPHORUS 3.8 MG/DL (2.5-4.5); POTASSIUM 3.8 MEQ/L (3.6-5); SODIUM 144 MEQ/L (134-144)
== END ==
LOC: LAB 09:32
PROVIDERS: ATTEND Internal Medicine Medical Oncology
DX: C50.412 Malignant neoplasm of upper-outer quadrant of left female breast (principal); C79.51 Secondary malignant neoplasm of bone; M85.88 Other specified disorders of bone density and structure, other site
CPT/HCPCS: 36415; 80048; 83735; 84100

== ENCOUNTER 2016-06-21 19:24 | Emergency (ER) | payer MEDICARE, OTHER ==
[~2016-06-21] VITALS: Ht 165.1 cm; Wt 81.8 kg
[~2016-06-21 19:24] MED LIST changes: -ANAS1TAB8 PO; -CALC-52 PO; -CYAN100T PO; -HYDR-4246 PO; -LEVO100T12 PO
--- OUTSIDE RECORDS SUMMARY | 2016-06-21 19:30 | XMS REPORT | Continuity of Care Document ---
Author Author [facility] Organization [facility] Address Unknown Phone Unavailable Support Name Relationship Address Phone DARWIN HOOK MD Caregiver [facility] [address] [place] [address] LOPEZ NAVARRO DO Caregiver [address] [facility] [address] [place] [address] AARON ESPARZA Caregiver [address] [place] [address] STACIE CARPIO MD Caregiver [address] [place] [address] [address] [place] [address] ELIZABETH VOIEDO Next Of Kin [address] [place] [id number] Insurance Providers Payer Name Policy Number Subscriber Name Relationship Medicare [id number] Juana [place] [employer] Self [place] [id number] Juana [place] [employer] Self Advance Directives Directive [...] F (96.8 - 99.1) Temperature (Calculated Celsius) [phone] degrees C (36.0 - 37.3) Temperature Source [...] potentially toxic. Vitamin D, 25-Hydroxy performed at [facility] Reference Lab, [address] [place] [address] Cut File Clerk Lilly Aceves MD 25-Hydroxy Vitamin D2 November [...] 14, 2013 3:09pm LAB TEST FORM REQUEST [id number] - Lipase February 17, 2014 9:41pm 125 [...] Has specimen been collected/obtained? Y Urine Specific [place] February 17, 2014 9:51pm 1.020 - Has [...] completed Encounters Encounter Location Date/Time Discharged Inpatient [facility] 02/17/14 10:46pm Registered Clinic [facility] 02/01/14 9:44am Registered Clinic [facility] 12/14/13 8:46am Registered Clinic [facility] 12/07/13 8:22am Registered Clinic [facility] 11/23/13 11:01am Recent Diagnosis GI bleed Warfarin-induced coagulopathy GI bleed Hypothyroidism Chronic atrial fibrillation Pacemaker History of breast cancer Obesity (BMI 30.0-34.9) Anemia Hypertension Paroxysmal atrial fibrillation Dyslipidemia
--- OUTSIDE RECORDS SUMMARY | 2016-06-21 19:31 | XMS REPORT | Continuity of Care Document ---
Author Author [facility] Address Unknown Phone Unavailable Support Name Relationship Address Phone MARIXA LIU MD Caregiver [address] [place] [address] Unavailable KARIME NY DO Caregiver [address] [place] [address] Unavailable JUVENAL SHI MD Caregiver [address] [place] [address] Unavailable ERMIAS SOARES MD Caregiver [address] [place] [address] Unavailable ERMIAS SOARES MD Caregiver [address] [place] [address] Unavailable ELIZABETH OVIEDO Next Of Kin [address] [place] [id number] Insurance Providers Guarantor Juana Oviedo Astrid Address [address] [place], [place] [id number] Email DENIED 16 Payer [place] Policy Number [id number] Subscriber's Name Juana Oviedo Relationship 18 Self Group Number PLANE Effective Date 03 Payer Medicare Policy Number [id number] Subscriber's Name Juana Oviedo Relationship 18 Self Effective Date 98 Advance Directives Directive Response Recorded Date/Time Advanced Directives Type None 05/16/16 12:20pm Ordered Resuscitation Status Full Code 05/16/16 5:17pm Resuscitation Documents on File No 05/16/16 6:19pm DPOA for Healthcare Only Y ELIZABETH OVIEDO 05/16/16 6:19pm Living Will Yes 05/16/16 6:19pm Problems Active Problems Medical Problem Onset Date Status Chronic atrial fibrillation Unknown Chronic Degenerative arthritis of left knee Unknown Chronic Dyslipidemia Unknown Chronic History of breast cancer Unknown Chronic Hypertension Unknown Chronic Hypothyroidism ~05/2016 Chronic LATISHA (obstructive sleep apnea) Unknown Chronic Obesity (BMI 30.0-34.9) Unknown Chronic Pacemaker Unknown Chronic Therapeutic opioid-induced constipation (OIC) Unknown Resolved Past Problems Medical Problem Onset Date Anemia Unknown Colitis Unknown Contusion Unknown Degenerative arthritis of right knee Unknown GI bleed Unknown GI bleed Unknown Hematoma of leg Unknown Neck pain on left side Unknown Paroxysmal atrial fibrillation Unknown Warfarin-induced coagulopathy Unknown Medications Current Home Medications Medication Dose Units Route Directions Days Qty Instructions Start Date Beta-Carotene(A) W-C & E/Min (Vision Vitamins) 1 Each Tablet 1 Tab Oral Twice A Day 05/16/16 Bisacodyl 10 Mg Supp.rect 10 Mg Rectally Daily as needed for Constipation 1 Bottle 05/21/16 Calcium Carbonate/Vitamin D3 (Calcium 600 + Vit D 400 Softgl) 1 Each Capsule 2 Cap Oral Daily 05/16/16 Docusate Sodium (Colace) 100 Mg Capsule 100 Mg Oral Daily as needed for Constipation 05/16/16 Furosemide 20 Mg Tablet 20-40 Mg Oral Daily 05/09/16 Latanoprost 2.5 Ml Drops 1 Drop Both Eyes Bedtime 02/17/14 Levothyroxine Sodium 75 Mcg Tablet 75 Mcg Oral Daily 02/19/10 Lisinopril 40 Mg Tablet 40 Mg Oral Daily 05/16/16 Magnesium Hydroxide (Milk Of Magnesia) 400 Mg/5 Ml Oral.susp 30 Ml Oral Daily as needed for Constipation 1 Bottle 05/21/16 Metoprolol Tartrate 50 Mg Tablet 75 Mg Oral Twice A Day 08/24/12 Metronidazole 500 Mg Tablet 500 Mg Oral Three Times A Day for Colitis 15 Tablet 05/21/16 Multivit-Minerals/Folic Acid (Centrum Multigummies) 80 Mcg Tab.chew 1 Tab Oral Daily 05/16/16 Oxycodone Hcl/Acetaminophen (Oxycodone-Acetaminophen 5-325) 5-325 Tablet 1 Tab Oral Every 4-6 Hours as needed for Pain 05/16/16 Polyethylene Glycol 3350 (Miralax) 119 Gm Powder 17 G Oral Daily as needed for Constipation 05/16/16 Pravastatin Sodium 80 Mg Tablet 80 Mg Oral Bedtime 05/16/16 Tramadol Hcl 50 Mg Tablet 50-100 Mg Oral Q6h/0300,0900,1500,2100 as needed for Pain 05/09/16 Ubidecarenone (Co Q-10) 200 Mg Capsule 200 Mg Oral Daily 08/24/12 Verapamil Hcl 360 Mg Capsule 360 Mg Oral Daily 06/14/15 Warfarin Sodium (Coumadin) 5 Mg Tablet 2.5 Mg Oral Every Wednesday, Wednesday , , Wednesday, And Wednesday06/14/15 Warfarin Sodium 5 Mg Tablet 5 Mg Oral Every Wednesday And Wednesday Past Home Medications Medication Directions Ordered Status [...] Mg Oral Daily 11/16/08 Discontinued Lisinopril/Hydrochlorothiazide (Lisinopril-Hctz 10/12.5 Tab) 1 Tab Tablet, 1 Tab Oral [...] Problem Response Recorded Date/Time Onset Date Status Reason for Hospitalization Colitis 05/21/2016 2:44pm Not Applicable Not Applicable Chewing Tobacco Status No 08/23/2012 11:53am Not Applicable Not Applicable Hx Substance Use No 05/16/2016 1:11pm Not Applicable Not Applicable Hx Alcohol Use Y SOCIAL 05/16/2016 1:11pm Not Applicable Not Applicable Has the pt used tobacco in the last 12 months No 05/16/2016 6:25pm Not Applicable Not Applicable Query Response Start Date Stop Date Smoking Status Never smoker Hospital Discharge Instructions Instructions: Care Instructions: Reason for Hospitalization: Colitis I was in the hospital because (patient own words): "I WAS HAVING SO MUCH PAIN" Discharge Diet: Low sodium Discharge Activity: Walker for assistance Follow Up Appointments: Dr Ny at [facility] in 1 week - check INR due to Coumadin use [phone] APPOINTMENT ON 05/27 AT 11:30. Pending Lab / Results: No Pending Lab Wound/Incision Care: n/a Durable Medical Equipment: Walker for gait assistance Pain Management/Treatment: Percocet as needed Expected Signs/Symptoms: Improvement of bowel function. Inprovement of strenght Notify Physician If: Temp >100.4. Intractable diarrhea. During Business Hours:: Please call the physician's office at After Business Hours:: Please call [phone] and have the container crane operator page the physician. Condition at time of discharge: Good Plan of Care Discharge Date 05/21/16 5:22pm Disposition 06 HOME HEALTH SERVICE Instructions/Education Provided Colitis (ED) Prescriptions See Medication Section Care Plan and Goals See Discharge Instructions Section Functional Status Query Response Date Recorded Mobility Status Ambulatory w/assist May 21, 2016 2:44pm Assistive Devices Standard Walker May 21, 2016 2:44pm Activity Limitations Weakness Fatigue Shortness of breath Pain May 21, 2016 2:44pm Feeding Ability Independent May 21, 2016 2:44pm Toileting Ability Independent May 21, 2016 2:44pm Grooming Ability Independent May 21, 2016 2:44pm Dressing Ability Independent May 21, 2016 2:44pm Driving Ability Independent May 21, 2016 2:44pm Housework Ability Independent May 21, 2016 2:44pm Meal Preparation Ability Independent May 21, 2016 2:44pm Stair Climbing Ability Independent May 21, 2016 2:44pm Ability to complete ADL's impeded by No change May 21, 2016 2:44pm Cognitive/Perceptual Impairments Impaired vision May 21, 2016 2:44pm Visual Assistive Devices Glasses With patient May 19, 2016 6:00pm Allergies, Adverse Reactions, Alerts Allergen Type Severity Reaction Status Last Updated metoclopramide HCl Adverse Reaction Unknown AGITATED, ANXIOUS Active 05/16 Sulfa (Sulfonamide Antibiotics) Adverse Reaction Unknown STOMACH HURTS Active 05/16/16 Morphine Allergy Unknown HALLUCINATION Active 05/16/16 Hydrocodone Adverse Reaction Intermediate VOMITING Active 05/16/16 Sulfamethoxazole Adverse Reaction Unknown STOMACH HURTS Active 05/16/16 Trimethoprim Adverse Reaction Unknown STOMACH HURTS Active 05/16/16 Immunizations Query Response on File Recorded Date/Time Hx Influenza Vaccination Y DEC 2015 05/16/16 6:25pm Hx Pneumococcal Vaccination Y 201505/16/16 6:25pm Hx Influenza Vaccination Y DEC 2015 05/16/16 6:25pm Influenza Vaccine Hx DEC 2015 05/16/16 6:28pm Vital Signs Acute Vital Signs Vital Response Date/Time Temperature (Fahrenheit) 97.1 deg F (96.8 - 99.1) 05/21/2016 5:00pm Temperature (Calculated Celsius) 36.92295 degrees C (36.0 - 37.3) 05/21/2016 5:00pm Pulse Rate (adult) 84 bpm (60 - 100) 05/21/2016 5:00pm Respiratory Rate 16 breaths/min (10 - 20) 05/21/2016 5:00pm O2 Sat by Pulse Oximetry 97 % (90 - 100) 05/21/2016 5:00pm Oxygen Delivery Method Nasal Cannula 05/17/2016 8:45pm Oxygen Delivery Method Room Air 05/21/2016 5:00pm Oxygen Flow Rate 1.00 L/min 05/17/2016 8:45pm Blood Pressure 141/69 mm Hg 05/21/2016 5:00pm Blood Pressure Source Automatic Cuff 05/21/2016 5:00pm Height (Feet) 5 feet 05/21/2016 1:54pm Height (Inches) 3.00 inches 05/21/2016 1:54pm Weight (Kilograms) 94.300 kg 05/21/2016 7:45am Body Mass Index (BMI) 34.8 05/16/2016 6:11pm Results Laboratory Results Test Name Result Units Flags Reference Collection Date/Time Result Date/ Time Comments Unconjugated Bilirubin 0.20 MG/DL 0.00-1.10 01/14/2016 8:20am 2015 8:59am Conjugated Bilirubin 0.00 MG/DL 0.00-0.30 01/14/2016 8:20am 01/14/2016 8:59am Carcinoembryonic Antigen 89.30 UG/L D H 0-3.0 05/13/2016 9:26am 2016 10:19am CA 27.29 140.28 U/ML D H 0-37.7 05/13/2016 9:26am 05/13/2016 11:14am Vitamin B12 Level 750 PG/ML 239-931 04/29/2016 2:50pm 05/01/2016 3: 18am Folate > 20.0 NG/ML H 2.76-20 04/29/2016 2:50pm 05/01/2016 3:18am NORMAL ADULT RANGE: 2.76->20 ng/mL Urine Microalbumin 12.0 MG/L 0-17 04/29/2016 2:50pm 04/30/2016 1:24am Urinalysis Comment MICROSCOPIC NOT IND. 04/29/2016 2:50pm 2016 3:05pm Blood Smear Pathologist Review SENT FOR REVIEW 04/29/2016 2:50pm 3:22pm Eosinophils % (Manual) 1.0 % 0-4 05/09/2016 1:40pm 05/09/2016 2:06pm Eosinophils # (Manual) 0.1 T/MM3 0-0.5 05/09/2016 1:40pm 05/09/2016 2: 06pm Troponin I < 0.012 ng/ml 0-0.12 05/09/2016 1:37pm 05/09/2016 2:27pm Troponin values with a difference of 55% increase from orginal troponin value represent a true biological DELTA value. (%increase Calc=Orginal Troponin value, divided by subsequent Troponin value, multiplied by 100) White Blood Count 9.6 T/MM3 4.5-11.0 05/21/2016 4:03am 05/21/2016 5: 10am Red Blood Count 3.29 M/MM3 L 4.00-5.20 05/21/2016 4:0305/21/2016 5: 10am Hemoglobin 10.3 GM/DL L 12-16 05/21/2016 4:0305/21/2016 5:10am Hematocrit 32.3 % L 36-46 05/21/2016 4:0305/21/2016 5:10am Mean Corpuscular Volume 98.2 UM3 80-100 05/21/2016 4:0305/21/2016 5: 10am Mean Corpuscular Hemoglobin 31.3 UUG 26-34 05/21/2016 4:032016 5:10am Mean Corpuscular Hemoglobin Concent 31.9 GM/DL 31-37 05/21/2016 4:0305/21/2016 5:10am RDW Standard Deviation 48.2 FL 36.9-50.2 05/21/2016 4:0305/21/2016 5 :10am Platelet Count 287 T/MM3 130-400 05/21/2016 4:0305/21/2016 5:10am Mean Platelet Volume 10.8 UM3 9.4-12.4 05/21/2016 4:0305/21/2016 5: 10am Neutrophils (%) (Auto) 62.6 % 33-66 05/21/2016 4:0305/21/2016 5: 10am Lymphocytes (%) (Auto) 17.0 % L 23-45 05/21/2016 4:0305/21/2016 5: 10am Monocytes (%) (Auto) 14.7 % H 0-9.0 05/21/2016 4:0305/21/2016 5:10am Eosinophils (%) (Auto) 4.1 % H 0-4 05/21/2016 4:0305/21/2016 5:10am Basophils (%) (Auto) 0.3 % 0-2 05/21/2016 4:0305/21/2016 5:10am Immature Granulocyte % (Auto) 1.3 % H 0.0-0.5 05/21/2016 4:2016 5:10am Absolute Neutrophils (auto) 6.0 T/MM3 1.8-7.7 05/21/2016 4:2016 5:10am Absolute Lymphocytes (auto) 1.6 T/MM3 1-4.8 05/21/2016 4:032016 5:10am Absolute Monocytes (auto) 1.4 T/MM3 H 0-0.8 05/21/2016 4:032016 5:10am Absolute Eosinophils (auto) 0.4 T/MM3 0-0.5 05/21/2016 4:032016 5:10am Absolute Basophils (auto) 0.0 T/MM3 0-0.2 05/21/2016 4:0305/21/2016 5:10am Absolute Immature Granulocyte (auto 0.12 T/MM3 H 0.00-0.03 05/21/2016 4: 0305/21/2016 5:10am Neutrophils % (Manual) 84.0 % H 33-66 05/18/2016 2:39pm 05/18/2016 3: 20pm Band Neutrophils % 7.0 % H 0-6 05/17/2016 6:02am 05/17/2016 6:48am Lymphocytes % (Manual) 10.0 % L 23-45 05/18/2016 2:39pm 05/18/2016 3: 20pm Monocytes % (Manual) 6.0 % 0-9.0 05/18/2016 2:39pm 05/18/2016 3:20pm Band Neutrophils # 1.5 T/MM3 05/17/2016 6:02am 05/17/2016 6:48am Absolute Neutrophils (Manual) 12.7 T/MM3 H 1.8-7.7 05/18/2016 2:39pm 08/2016 3:20pm Lymphocytes # (Manual) 1.5 T/MM3 1-4.8 05/18/2016 2:39pm 05/18/2016 3: 20pm Monocytes # (Manual) 0.9 T/MM3 H 0-0.8 05/18/2016 2:39pm 05/18/2016 3: 20pm Red Cell Morphology Comment NORMAL 05/18/2016 2:39pm 05/18/2016 3: 20pm Prothromb Time International Ratio 1.38 H 0.76-1.04 05/21/2016 4:03am 05/21/2016 5:10am THERAPUTIC RANGE=2.00-3.00 FOR ANTI-THROMBOSIS THERAPUTIC RANGE=2.50-3.50 FOR IMPLANTED VALVE Icterus Index < 2 0-7 05/21/2016 4:03am 05/21/2016 5:17am Chemistry Specimen Hemolysis 16 0-25 05/21/2016 4:03am 05/21/2016 5: 17am 0-25: Specimen Exhibited No Hemolysis. Turbidity < 20 0-20 05/21/2016 4:03am 05/21/2016 5:17am Sodium Level 138 MEQ/L 134-144 05/21/2016 4:03am 05/21/2016 5:17am Potassium Level 3.8 MEQ/L 3.6-5 05/21/2016 4:03am 05/21/2016 5:17am Chloride Level 105 MEQ/L 98-107 05/21/2016 4:03am 05/21/2016 5:17am Carbon Dioxide Level 24 MEQ/L 22-30 05/21/2016 4:03am 05/21/2016 5: 17am Anion Gap 9 MEQ/L 5-15 05/21/2016 4:03am 05/21/2016 5:17am Blood Urea Nitrogen 14.0 MG/DL 7-17 05/21/2016 4:03am 05/21/2016 5: 17am Creatinine 0.9 MG/DL D 0.7-1.2 05/21/2016 4:0305/21/2016 5:42am BUN/Creatinine Ratio 16 RATIO 6-26 05/21/2016 4:0305/21/2016 5:17am Glomerular Filtration Rate Calc 60 05/21/2016 4:0305/21/2016 5: 17am Glucose Level 93 MG/DL 65-110 05/21/2016 4:0305/21/2016 5:17am Calculated Osmolality 267 MOSM/KG 261-280 05/21/2016 4:0305/21/2016 5:17am Calcium Level 9.3 MG/DL 8.4-10.2 05/21/2016 4:0305/21/2016 5:17am Total Bilirubin 0.50 MG/DL 0.20-1.30 05/20/2016 4:5205/20/2016 5: 36am Alkaline Phosphatase 117 U/L 38-126 05/20/2016 4:5205/20/2016 5: 36am Total Protein 6.0 G/DL L 6.3-8.2 05/20/2016 4:52am 05/20/2016 5:36am Albumin 3.1 G/DL L 3.5-5.0 05/20/2016 4:5205/20/2016 5:36am Globulin 2.9 G/DL 2.4-3.6 05/20/2016 4:52am 05/20/2016 5:36am Albumin/Globulin Ratio 1.1 RATIO 1.1-2.2 05/20/2016 4:5205/20/2016 5 :36am Aspartate Amino Transf (AST/SGOT) 27 U/L 14-36 05/20/2016 4:52am 2016 5:36am Alanine Aminotransferase (ALT/SGPT) 29 U/L 9-52 05/20/2016 4:52am 05/20 5:36am Lipase 47 U/L 23-300 05/16/2016 12:58pm 05/16/2016 1:46pm Procalcitonin 1.10 NG/ML 05/16/2016 12:58pm 05/16/2016 7:38pm PCT </ =0.5 ng/mL - sepsis not likely; PCT >0.5 and </=2 ng/mL - sepsis possible; PCT >2 ng/mL - sepsis likely; PCT >/=10 ng/mL - systemic inflammatory response - sepsis or septic shock highly indicated. Urine Collection Type CLEANCATCH-MIDSTREAM 05/16/2016 1:40pm 2016 1:45pm Urine Color YELLOW YELLOW 05/16/2016 1:40pm 05/16/2016 1:45pm Urine Turbidity CLEAR CLEAR 05/16/2016 1:40pm 05/16/2016 1:45pm Urine Specific [place] >=1.030 H 1.015-1.025 05/16/2016 1:40pm 2016 1:45pm Urine pH 5.0 5.0-8.0 05/16/2016 1:40pm 05/16/2016 1:45pm Urine Leukocyte Esterase NEGATIVE NEGATIVE 05/16/2016 1:40pm 2016 1:45pm Urine Nitrite NEGATIVE NEGATIVE 05/16/2016 1:40pm 05/16/2016 1:45pm Urine Protein 1+ A NEGATIVE 05/16/2016 1:40pm 05/16/2016 1:45pm Urine Glucose (UA) NEGATIVE NEGATIVE 05/16/2016 1:40pm 05/16/2016 1: 45pm Urine Ketones TRACE A NEGATIVE 05/16/2016 1:40pm 05/16/2016 1:45pm Urine Urobilinogen 1.0 EU/DL NORMAL 05/16/2016 1:40pm 05/16/2016 1: 45pm Urine Bilirubin 1+ A NEGATIVE 05/16/2016 1:40pm 05/16/2016 1:45pm Urine Blood NEGATIVE NEGATIVE 05/16/2016 1:40pm 05/16/2016 1:45pm Urine WBC 0-1 /HPF 0-5 05/16/2016 1:40pm 05/16/2016 1:52pm Urine RBC 1-3 /HPF 0-3 05/16/2016 1:40pm 05/16/2016 1:52pm Urine Squamous Epithelial Cells 5-10 05/16/2016 1:40pm 05/16/2016 1 :52pm Urine Bacteria 2+ H NEGATIVE 05/16/2016 1:40pm 05/16/2016 1:52pm Urine Mucus PRESENT 05/16/2016 1:40pm 05/16/2016 1:52pm Urine Hyaline Casts 1-3 /LPF 05/16/2016 1:40pm 05/16/2016 1:52pm Urine Culture Indicated CULT NOT INDICATED 05/16/2016 1:40pm 2016 1:52pm Microbiology Results Procedure Source Organism/Result Collection Date/Time Result Date/Time Result Status Urine Culture Urine, Clean Catch-Midstream ESCHERICHIA COLI 04/29/2016 2: 50pm 05/01/2016 6:26am Final Name: JUANA OVIEDO Unit #: [id number] : 1935 Sex: F Admit Date: 05/16/16 Loc / Svc: MED Discharge Date: DIAGNOSTIC IMAGING REPORT Report #: [id number] [facility] [place] Kimbrough Indication: ITS.REASON: abdominal pain PROCEDURE: CT ABD/PELVIS W/CONTRAST ONLY: Encounter: Initial Comparison: December 17, 2010 Technique: Axial CT images were performed through the abdomen and pelvis after the administration of intravenous contrast. Coronal and sagittal two-dimensional reformats. Automated Exposure Control and Iterative Reconstruction dose reducing techniques were utilized. Contrast: Omnipaque 300 99 mL Findings: Atelectasis in both lower lobes. Heart is enlarged. Liver is normal. Gallbladder is surgically absent. The spleen, fatty replaced pancreas and adrenal glands are within normal limits. Kidneys are stable with renal atrophy and small cysts. No abdominal or pelvic adenopathy. Bladder is decompressed. Uterus is unremarkable for age. No significant free fluid. There is inflammation at the splenic flexure of the colon with some bowel wall thickening. No evidence of a bowel obstruction however. Bone windows show degenerative changes in the spine along with small sclerotic osseous lesions. Chronic appearing inferior endplate compression deformities of T10 and T11. Impression: Acute colitis of the splenic flexure could be infectious or inflammatory. Colonoscopy is recommended after the acute episode to exclude any underlying neoplasm or lesion in this location. There is a preliminary report by [employer]. . Procedures Procedure Status Date Provider(s) Hepatic function panel Completed 12/02/15 Immunoassay tumor ca 15-3 Completed 12/02/15 Hepatic function panel Completed 12/02/15 Immunoassay tumor ca 15-3 Completed 12/02/15 Routine venipuncture Completed 02/25/16 Carcinoembryonic antigen Completed 02/25/16 Immunoassay tumor ca 15-3 Completed 02/25/16 Pet image w/ct skull-thigh Completed 04/01/16 [id number]"FLUORODEOXYGLUCOSE F-18 FDG, DIAGNOSTIC, PER STUDY DO Completed X-ray exam thorac spine 3vws Completed 03/23/16 Ct chest spine w/o dye Completed 04/03/16 Bone imaging whole body Completed 04/07/16 Bone imaging (3d) Completed 04/07/16 [id number]"TECHNETIUM TC-99M MEDRONATE, DIAGNOSTIC, PER STUDY DO Completed [...] Completed 04/29/16 Microbe susceptible veronica Completed 04/29/16 Routine venipuncture Completed 05/09/16 Ct neck spine w/o dye Completed 05/09/16 Metabolic panel total ca Completed 05/09/16 Assay of troponin quant Completed 05/09/16 Complete cbc w/auto diff wbc Completed 05/09/16 Electrocardiogram tracing Completed 05/09/16 Ther/proph/diag inj iv push Completed 05/09/16 Tx/pro/dx inj new drug addon Completed 05/09/16 Tx/pro/dx inj new drug addon Completed 05/09/16 Tx/pro/dx inj new drug addon Completed 05/09/16 Emergency dept visit Completed 05/09/16 933047"INJECTION, HYDROMORPHONE, UP TO 4 MG" Completed 05/09/16 287967"INJECTION, ORPHENADRINE CITRATE, UP TO 60 MG" Completed 05/09/16 675775"INJECTION, ONDANSETRON HYDROCHLORIDE, PER 1 MG" Completed 05/09/16 Encounters Encounter Location Arrival/Admit Date Discharge/Depart Date Attending Provider Discharged Inpatient [facility] 05/17/16 4:12pm 05/21/16 5:22pm ERMIAS SOARES MD Registered [facility] 05/13/16 9:15am MARIXA LIU MD Departed Emergency Room [facility] 05/09/16 11:54am 05/09/16 4: 37pm JONATHAN WALLACE DO Registered [facility] 04/29/16 2:20pm KARIME NY DO Registered [facility] 04/07/16 9:28am LOUISA BOBBY Registered [facility] 04/03/16 3:37pm KARIME NY DO Registered [facility] 04/01/16 7:03am MARIXA LIU MD Registered [facility] 03/23/16 1:53pm KARIME NY DO Discharged [facility] 02/25/16 10:25am 03/14/16 11: 53pm MARIXA LIU MD Discharged [facility] 12/02/15 8:30am 02/28/16 11:59pm MARIXA LIU MD
--- OUTSIDE RECORDS SUMMARY | 2016-06-21 19:32 | XMS REPORT | Continuity of Care Document ---
Author Author [facility] Organization [facility] Address Unknown Phone Unavailable Allergies Medications [...] Procedures Code [place] [address] Office or other outpatient visit for the evaluation and management of a new patient, which requires ROD CAZARES MD 09/03/2015 50810 Office or other outpatient visit for the evaluation and management of an established patient, which ROD CAZARES MD 10/09/2015 71748 Office or other outpatient visit for the evaluation and management of an established patient, which ROD CAZARES MD 10/09/2015 22596 Office or other outpatient visit for the evaluation and management of a new patient, which requires ROD CAZARES MD 10/15/2015 28888 Office or other outpatient visit for the evaluation and management of an established patient, which ROD CAZARES MD 11/11/2015 49691 Office or other outpatient visit for the evaluation and management of an established patient, which ROD CAZARES MD 12/24/2015 Results Encounters ACCT No. Visit Date/Time Discharge Status Pt. Type Provider Facility Loc./Unit Complaint [id number] 03/23/2013 12:47:00 03/23/2013 23 :59:59 [facility] Outpatient [id number] 01/05/2013 12:51:00 01/05/2013 23 :59:59 [facility] Outpatient
--- OUTSIDE RECORDS SUMMARY | 2016-06-21 19:32 | XMS REPORT ---
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 Active 345851074 ALLERGIES Unknown Allergies SOCIAL HISTORY No smoking Hx information available PLAN OF CARE VITAL SIGNS MEDICATIONS Medication Instructions Dosage Frequency Start Date End Date Duration Status Omeprazole 20 MG Orally Once a day 1 capsule 24h Active Verapamil HCl CR 360 MG Orally Once a day 1 capsule in the morning 24h 90 days Active Acetaminophen 500 MG Orally every 6 hrs 1 capsule as needed 6h Active CoQ-10 200 MG Orally Once a day 1 capsule with a meal 24h Active Latanoprost 0.005 % Ophthalmic Once a day 1 drop into affected eye in the evening 24h Active Lasix 20 MG Orally Once a day 1-2 tablet 24h 30 days Active Pravastatin Sodium 80mg oral once daily at night. one tablet at bedtime 30 Active Multivitamin Active Vitamin B 12 100 MCG Active Levothyroxine Sodium 75 MCG Orally Once a day 1 tablet on an empty stomach in the morning 24h 90 days Active Coumadin 5 MG Orally as directed. 1 tablet daily excet for tuesdays and when you take two tablets. 30 days Active Centrum Silver Active Vitamin C 500 MG Active Lisinopril 20 MG Orally Once a day 1 tablet 24h Aug, 30 day(s) Active Metoprolol Tartrate 50 MG Orally BID 1 tablet 12h Active Verapamil HCl CR 360 Orally Once a day 1 capsule in the morning 24h 90 Active RESULTS Name Result Date Reference Range In House Protime INR 2016-02-28 results 2.1 PROCEDURES Procedure Date Ordered Related Diagnosis Body Site PROTIME INR, IN HOUSE Feb 28, 2016 IMMUNIZATIONS No Known Immunizations
--- OUTSIDE RECORDS SUMMARY | 2016-06-21 19:33 | XMS REPORT ---
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
[2016-06-21 19:34] VITALS: Ht 165.1 cm; Wt 81.8 kg
--- NOTE | 2016-06-21 20:00 | NUR ---
STATUS PT REQUIRES ASSIST X2 TO TRANSFER FROM WHEEL CHAIR TO CART. PT REPORTS PAIN 10/10 - PRIMARY PAIN IN LEFT HIP. STATES GENERALIZED PAIN THROUGHOUT BODY.
[2016-06-21] MEDS ORDERED: LEVO100T12 PO (20:27)
[2016-06-21] MEDS ORDERED: CALC-52 PO (20:29)
[2016-06-21] MEDS ORDERED: ANAS1TAB8 PO (20:29)
[2016-06-21] MEDS ORDERED: CYAN100T PO (20:30)
--- NOTE | 2016-06-21 20:34 | ERPDOC ---
Departure Disposition Decision Date: Jun 21, 2016 Disposition Decision Time: 20:53 (MILLICENT WINCHESTER APRN) Disposition: 01 DISCHARGED HOME, SELF-CARE Impression Impression (MILLICENT WINCHESTER APRN) Impression: Primary Impression: Left buttock pain Condition: Improved Seen By: Mid-level only (MILLICENT WINCHESTER APRN) Referrals: KARIME NY DO (Family) MARIXA LIU MD Patient Instructions: Hip Pain (ED) Problems/Meds/Labs Reviewed?: Yes Medications reviewed and manag: Yes (MILLICENT WINCHESTER APRN) Additional Instructions: You may take norco 5/325mg, 1-2 tabs every 4-6hours as needed for pain. This medication may cause drowsiness so avoid driving, operating heavy machinery or drinking alcohol while taking. This medication may cause constipation so you may need to take a stool softener while taking. Follow with Dr. Liu or Dr. Ny as needed next week for reevaluation. Follow up care ordered?: Yes Mental Status: Alert, Oriented (MILLIECNT WINCHESTER APRN) Scripts Hydrocodone/Acetaminophen (Murdock 5-325 Tablet) 5-325 Tablet 1-2 TAB PO Q4-6HPRN Y for PAIN, #20 TAB Prov: MILLICENT WINCHESTER APRN 06/21/16 HPI - Lower Extremity General Chief Complaint: Lower Extremity Injury Stated Complaint: HIP PAIN Time Seen by Provider: 20:09 Source: patient (MILLICENT WINCHESTER APRN) Time Seen by Provider: 20:09 (CHRISTOPHE VARGAS DO) HPI - Lower Extremity Initial Comments Patient presents to ED with left buttock pain post injection on Wednesday in Dr. Liu's office. Patient is being treated with antiestrogen chemo due to bone CA. Patient has hx. of breast CA but is unsure if bone CA is related to breast. Patient had an injection in both sides of buttock and was told to use heating pad for pain. Patient says heating pad and tramadol are not helping pain. Patient denies any trauma/injury/falls or decrease in movement of left hip/left leg. Painful to bear weight. Pain/Severity Scale: Now: 10/10 Pain/Injury Location: left hip (buttock) Quality: aching (MILLICENT WINCHESTER APRN) Allergies: Coded Allergies: morphine (Verified Allergy, Unknown, HALLUCINATION, 06/21/16) hydrocodone (Verified Adverse Reaction, Intermediate, VOMITING, 05/16/16) Sulfa (Sulfonamide Antibiotics) (Verified Adverse Reaction, Unknown, STOMACH HURTS, 05/16/16) metoclopramide HCl (Verified Adverse Reaction, Unknown, AGITATED, ANXIOUS , 06/21/16) sulfamethoxazole (Unverified Adverse Reaction, Unknown, STOMACH HURTS, 05/16) trimethoprim (Unverified Adverse Reaction, Unknown, STOMACH HURTS, 05/16/16) Past History Patient Surgical History Cholecystectomy, 3 sections heart catheterization pacemaker placement orthopedic total repair with pin (MILLICENT WINCHESTER TRIMMER MACHINE OPERATOR) Past Medical History Metabolic: cancer (breast), hypertension, hypothyroidism ENMT: cataracts, glaucoma, sleep apnea Cardiac: A-fib Respiratory: DENIES: asthma GI: GERD, gallbladder disease Female: renal insufficiency Neurological: headaches Musculoskeletal: osteoarthritis Psychological: depression (MILLIECNT WINCHESTER APRN) Surgical History General: gallbladder, other Cardiac: cardiac cath, pacemaker Reproductive/: (MILLICENT WINCHESTER APRN) Family History Family PMH: FOUND: [place], diabetes, hypertension (MILLICENT WINCHESTER APRN) Vaccines Hx Influenza Vaccination: Yes (DEC 2015) Hx Pneumococcal Vaccination: Yes (2015) (MILLICENT WINCHESTER APRN) Social History Does patient use chewing tobac: No Second Hand Exposure: No Substance Use Type: does not use Marital Status: Sexuality: male partner (MILLICENT WINCHESTER APRN) Review of Systems Constitutional Constitutional: DENIES: chills, dizziness, fever, weakness (MILLICENT WINCHESTER APRN) Eyes General: DENIES: erythema, exudate Lids/Accessories: DENIES: erythema, swelling (MILLICENT WINCHESTER APRN) ENMT Ears: DENIES: pain Sinuses: DENIES: congestion, rhinorrhea Mouth/Throat: DENIES: sore throat (MILLICENT WINCHESTER APRN) Cardiovascular Cardiac: DENIES: chest pain, murmur Rhythm/Rate: DENIES: palpitations (MILLICENT WINCHESTER APRN) Pulmonary Respiratory: DENIES: cough, dyspnea (MILLICENT WINCHESTER APRN) GI Upper Abdomen: DENIES: nausea, pain, vomiting Lower Abdomen: DENIES: blood in stool, diarrhea, pain (WINCHESTER,MILLICENT A TRIMMER MACHINE OPERATOR) General: DENIES: dysuria, pain (WINCHESTERMADAYS A TRIMMER MACHINE OPERATOR) Musculoskeletal General: pain, see HPI (WINCHESTERMADAYS A TRIMMER MACHINE OPERATOR) Integumentary Skin: DENIES: color change, itching, rash (WINCHESTERMADAYS A TRIMMER MACHINE OPERATOR) Neurological General: DENIES: ataxia, change in strength, numbness, paralysis/paresis, weakness (WINCHESTERMILLICENT A TRIMMER MACHINE OPERATOR) Psychiatric Psychiatric: DENIES: anxiety, depression, nervousness (WINCHESTERMADAYS A TRIMMER MACHINE OPERATOR) Physical Exam General General Nourishment: well nourished, well developed, adult General Body Habitus: well groomed (MADAY WINCHESTERS A TRIMMER MACHINE OPERATOR) Vitals and Pain Weight: Kilograms: 81.800 Height (feet): 5 Height (inches): 5.00 Triage Pain Scale: (MADAY WINCHESTERS A TRIMMER MACHINE OPERATOR) Eyes (brief) Eyes Brief: found: EOMI (MADAY WINCHESTERS A TRIMMER MACHINE OPERATOR) ENMT (brief) ENMT Brief: NOT FOUND: nasal exudate, nasal swelling (MADAY WINCHESTERS A TRIMMER MACHINE OPERATOR) Neck (brief) Neck: FOUND: trachea midline (WINCHESTERMILLICENT A TRIMMER MACHINE OPERATOR) Respiratory (brief) Respiratory: FOUND: clear all maradiaga, equal bilaterally, symmetrical (ANNABELLA MILLICENT A TRIMMER MACHINE OPERATOR) Cardiovascular (brief) Cardiac: FOUND: regular rate, regular rhythm (ANNABELLAMILLICENT A TRIMMER MACHINE OPERATOR) Musculoskeletal Joint #1: Side: Left Joint: hip Joint Findings: FOUND: pain (TTP over left buttock), NOT FOUND: ROM limited , deformity, discoloration, instability, swelling Comments No swelling, crepitus, abscess, erythema, ecchymosis or contusion appreciated to left buttock. Joint #2: Side: Left Joint: knee Joint Findings: FOUND: no abnormalities Back: NOT FOUND: spasm, spine point tenderness, tenderness (WINCHESTERMILLICENT A TRIMMER MACHINE OPERATOR) Integumentary (brief) Integumentary Brief: FOUND: dry, pink, warm (WINCHESTERMILLICENT A TRIMMER MACHINE OPERATOR) Neurologic (brief) Neurological Brief: FOUND: motor-no gross deficits, sensory-no gross deficits ( WINCHESTERMILLICENT A TRIMMER MACHINE OPERATOR) Psychiatric (brief) Psychiatric Brief: FOUND: alert, oriented (WINCHESTERMILLICENT A TRIMMER MACHINE OPERATOR) Differential Diagnoses Considering: Cellulitis, Contusion, Other (abscess, medication effect) (WINCHESTERMILLICENT A TRIMMER MACHINE OPERATOR) Progress Results/Orders Orders Procedure Category Date Status Time Hydromorphone PHA 06/21/16 Complete (Dilaudid) 20:45 Hydrocodone/Apap PHA 06/21/16 Complete 5/325 Prepack (Murdock 5 21:15 () Medications Current ED Medications Hydromorphone HCl (Dilaudid) 0.5 mg O ONCE IM Last administered on 06/21/16t 20 :53; Start 06/21/16 at 20:45; Stop 06/21/16 at 20:46; Status DC Acetaminophen/ Hydrocodone Bitart (NORCO 5 (PrePack)) 1 pack O ONCE SENT HOME ; Start 06/21/16 at 21:15; Stop 06/21/16 at 21:16; Status DC () Progress Progress Patient has no swelling, erythema, inflamation of tissue or contusion from injection site in left buttocks appreciated. Patient does report improvement of pain after 0.5 mg of Dilaudid. I will send patient home with Murdock prepack and prescription for Murdock 5/325mg. I discussed with patient conversation I had with Dr. Liu and follow-up as needed, which patient verbalized understanding of treatment plan, follow-up and return precautions. (MILLICENT WINCHESTER APRN) Consult/PCP Consult/PCP : Physician Contacted: Dr. Liu Time Called: 20:45 Type of discussion: Phone Consult/PCP Discussion Details I discussed patient's HPI, PMH, exam findings and VS with Dr. Liu. He did not feel patient needed to have any labs drawn. He agreed with treating patient' s acute pain and sending her home with something stronger for pain control. Patient can follow with him or PCP as needed. (MILLICENT WINCHESTER APRN) MILLICENT WINCHESTER APRN Jun 21, 2016 20:34 JULY,CHRISTOPHE Shahid DO Jun 29, 2016 01:13
[2016-06-21] MEDS ORDERED: HYDROMORPHONE 2mg/ml INJECTION IM ONE (20:45)
[2016-06-21] MEDS ORDERED: HYDR-4246 PO (20:59)
--- OUTSIDE RECORDS SUMMARY | 2016-06-21 21:04 | XMS REPORT | Continuity of Care Document ---
Author Author [facility] Organization [facility] Address Unknown Phone Unavailable Support Name Relationship Address Phone DARWIN HOOK MD Caregiver [facility] [address] [facility] [address] LOPEZ NAVARRO DO Caregiver [address] [place] [address] AARON ESPARZA Caregiver [address] [place] [address] STACIE CARPIO MD Caregiver [address] [place] [address] [address] [place] [address] ELIZABETH OVIEDO Next Of Kin [address] [place] [address] Insurance Providers Payer Name Policy Number Subscriber Name Relationship Medicare [id number] Juana Oviedo 18 Self Everencemma [id number] Juana Oviedo 18 Self Advance Directives Directive [...] F (96.8 - 99.1) Temperature (Calculated Celsius) 36.24109 degrees C (36.0 - 37.3) Temperature Source [...] potentially toxic. Vitamin D, 25-Hydroxy performed at [facility] Reference Lab, [address] [place] [address] Medication Administration Professional Lilly Aceves MD 25-Hydroxy Vitamin D2 November [...] 14, 2013 3:09pm LAB TEST FORM REQUEST [id number] - Lipase February 17, 2014 9:41pm 125 [...] Has specimen been collected/obtained? Y Urine Specific [place] February 17, 2014 9:51pm 1.020 - Has [...] completed Encounters Encounter Location Date/Time Discharged Inpatient [facility] 02/17/14 10:46pm Registered Clinic [facility] 02/01/14 9:44am Registered Clinic [facility] 12/14/13 8:46am Registered Clinic [facility] 12/07/13 8:22am Registered Clinic [facility] 11/23/13 11:01am Recent Diagnosis GI bleed Warfarin-induced coagulopathy GI bleed Hypothyroidism Chronic atrial fibrillation Pacemaker History of breast cancer Obesity (BMI 30.0-34.9) Anemia Hypertension Paroxysmal atrial fibrillation Dyslipidemia
--- OUTSIDE RECORDS SUMMARY | 2016-06-21 21:06 | XMS REPORT | Continuity of Care Document ---
Author Author [facility] Organization [facility] Address Unknown Phone Unavailable Allergies Medications Medication [...] Procedures Code [place] [address] Office or other outpatient visit for the evaluation and management of a new patient, which requires ROD CAZARES MD 09/03/2015 38459 Office or other outpatient visit for the evaluation and management of an established patient, which ROD CAZARES MD 10/09/2015 97988 Office or other outpatient visit for the evaluation and management of an established patient, which ROD CAZARES MD 10/09/2015 01936 Office or other outpatient visit for the evaluation and management of a new patient, which requires ROD CAZARES MD 10/15/2015 39270 Office or other outpatient visit for the evaluation and management of an established patient, which ROD CAZARES MD 11/11/2015 01266 Office or other outpatient visit for the evaluation and management of an established patient, which ROD CAZARES MD 12/24/2015 Results Encounters ACCT No. Visit Date/Time Discharge Status Pt. Type Provider Facility Loc./Unit Complaint [id number] 03/23/2013 12:47:00 03/23/2013 23 :59:59 [facility] Outpatient [id number] 01/05/2013 12:51:00 01/05/2013 23 :59:59 [facility] Outpatient
[2016-06-21] MEDS ORDERED: HYDROCODONE/APAP 5/325 (PrePack) SENT HOME ONE (21:15)
[2016-06-21 21:19] VITALS: BP 166/72; PULSE 80; RESP 18; TEMP 98.6; O2SAT 93
--- NOTE | 2016-06-21 21:19 | NUR ---
DEPART PT GIVEN DI FOR HIP PAIN, NORCO, F/U. PREPAK/RX PROVIDED FOR NORCO. PT VERBALIZES UNDERSTANDING OF DI. QUESTIONS ASKED/ANSWERED - DENIES FURTHER QUESTIONS/NEEDS AT THIS TIME. PERSONAL BELONGINGS GATHERED. PT ASSISTED TO WHEEL CHAIR ASSIST X1. PT ESCORTED TO ED EXIT VIA WHEEL CHAIR - NO SIGN OF DISTRESS AT THIS TIME. ASSIST X1 TO PRIVATE VEHICLE PASSENGER SIDE.
== END 2016-06-21 21:19 | disposition home or self-care (01) ==
LOC: ED 19:24
DX: M25.552 Pain in left hip (principal)
CPT/HCPCS: 96372; 99283; J1170

== ENCOUNTER → 2016-07-04 | Outpatient (CLI) | payer MEDICARE, OTHER ==
[~2016-07-04] MED LIST changes: +ANAS1TAB8 PO; +CALC-52 PO; +CALC-747 PO; -CALC1CAP22 PO; +CYAN100T PO; +DEXT15DR29 BOTH EYES; +HYDR-4246 PO; +LEVO100T12 PO; +LEVO75TA10 PO; -LEVO75TA58 PO; -METR-116 PO; +NA P133E23 RECTALLY; +NITR100C4 PO; +OMEP-122 PO; +ONDA4TAB10 PO; -OXYC-541 PO; -WARF5TAB6 PO
[2016-07-04 08:48] LABS: BLOOD, URINE TRACE-LYSED (NEGATIVE); COLOR,URINE YELLOW (YELLOW); LEUKOCYTE ESTERASE ,URINE 1+ (NEGATIVE); NITRITE,URINE NEGATIVE (NEGATIVE); UROBILINOGEN,URINE 0.2 EU/DL (NORMAL)
[2016-07-04 09:02] LABS: BACTERIA,URINE 1+ (NEGATIVE)
== END ==
LOC: LABN 08:30
PROVIDERS: ATTEND Nurse Practitioner
DX: R30.0 Dysuria (principal)
CPT/HCPCS: 81001; 87077; 87086; 87186

== ENCOUNTER 2016-07-07 17:36 | Emergency (ER) | payer MEDICARE, OTHER ==
[~2016-07-07] VITALS: Ht 160 cm; Wt 85.4 kg
[~2016-07-07 17:36] MED LIST changes: -CALC-747 PO; -DEXT15DR29 BOTH EYES; -LEVO75TA10 PO; -NA P133E23 RECTALLY; -NITR100C4 PO; -OMEP-122 PO; -ONDA4TAB10 PO
[2016-07-07 17:40] VITALS: Ht 160 cm; Wt 85.4 kg
--- OUTSIDE RECORDS SUMMARY | 2016-07-07 17:42 | XMS REPORT | Continuity of Care Document ---
Author Author [facility] Organization [facility] Address Unknown Phone Unavailable Support Name Relationship Address Phone DARWIN HOOK MD Caregiver [facility]ASCULAR [facility]ARE [address] [facility] [address] LOPEZ NAVARRO DO Caregiver [address] [place] [address] AARON ESPARZA Caregiver [address] [place] [address] STACIE CARPIO MD Caregiver [address] [place] [address] [address] [address] ELIZABETH OVIEDO Next Of Kin [address] [place] [address] Insurance Providers Payer Name Policy Number Subscriber Name Relationship Medicare [id number] Juana Oviedo 18 Self Everencemma [id number] Juana Oviedo 18 Self Advance Directives Directive [...] Discharge Activity: As tolerated Follow Up Appointments: Jnae Fleming in [address] Hook in [...] F (96.8 - 99.1) Temperature (Calculated Celsius) 36.98606 degrees C (36.0 - 37.3) Temperature Source [...] potentially toxic. Vitamin D, 25-Hydroxy performed at [facility] Reference Lab, [address] [place] [address] Route Manager Lilly Aceves MD 25-Hydroxy Vitamin D2 November [...] 14, 2013 3:09pm LAB TEST FORM REQUEST [id number] - Lipase February 17, 2014 9:41pm 125 [...] Has specimen been collected/obtained? Y Urine Specific [place] February 17, 2014 9:51pm 1.020 - Has [...] completed Encounters Encounter Location Date/Time Discharged Inpatient [facility] 02/17/14 10:46pm Registered Clinic [facility] 02/01/14 9:44am Registered Clinic [facility] 12/14/13 8:46am Registered Clinic [facility] 12/07/13 8:22am Registered Clinic [facility] 11/23/13 11:01am Recent Diagnosis GI bleed Warfarin-induced coagulopathy GI bleed Hypothyroidism Chronic atrial fibrillation Pacemaker History of breast cancer Obesity (BMI 30.0-34.9) Anemia Hypertension Paroxysmal atrial fibrillation Dyslipidemia
--- OUTSIDE RECORDS SUMMARY | 2016-07-07 17:43 | XMS REPORT | Continuity of Care Document ---
Author Author [facility] Organization [facility] Address Unknown Phone Unavailable Support Name Relationship Address Phone MARIXA LIU MD Caregiver [address] [place] [address] Unavailable MAYCHRISTOPHE DO Caregiver [address] [place] [address] Unavailable KARIME NY DO Caregiver [address] [place] [address] Unavailable WILLELIZABETH Next Of Kin [address] [place] [address] Insurance Providers Guarantor ArtemioJuana L Address [address] [place], [place] [id number] Email DENIED 16 Payer Everence Policy Number [id number] Subscriber's Name Juana Oviedo Relationship 18 Self Group Number PLANE Effective Date 03 Payer Medicare Policy Number [id number] Subscriber's Name Kat Oviedonelson Resendiz Relationship 18 Self Effective Date 98 Advance Directives Directive Response Recorded Date/Time Advanced Directives Type DNR Documentation Unable to Obtain 06/21/16 8:00pm Chief Complaint and Reason for Visit Chief Complaint Lower Extremity Injury Reason for Visit Left buttock pain Problems Active Problems Medical Problem Onset Date [...] GI bleed Unknown Hematoma of leg Unknown Left buttock pain Unknown Neck pain on left side Unknown Paroxysmal atrial fibrillation Unknown Warfarin-induced coagulopathy Unknown Medications Current Home Medications Medication Dose Units Route Directions Days Qty Instructions Start Date Anastrozole 1 Mg Tablet 1 Mg Oral Daily 06/21/16 Beta-Carotene(A) W-C & E/Min (Vision Vitamins) 1 Each Tablet 1 Tab Oral Twice A Day 05/16/16 Bisacodyl 10 Mg Supp.rect 10 Mg Rectally Daily as needed for Constipation 1 Bottle 05/21/16 Calcium Carbonate (Calcium) 500 Mg Tablet 500 Mg Oral Daily 06/21 Cyanocobalamin (Vitamin B-12) 100 Mcg Tablet 1 Tab Oral Daily 11/29 Docusate Sodium (Colace) 100 Mg Capsule 100 Mg Oral Daily as needed for Constipation 05/16/16 Furosemide 20 Mg Tablet 20-40 Mg Oral Daily 05/09/16 Hydrocodone/Acetaminophen (Edmond 5-325 Tablet) 5-325 Tablet 1-2 Tab Oral Every 4-6 Hours Prn as needed for Pain 20 Tablet 06/21/16 Latanoprost 2.5 Ml Drops 1 Drop Both Eyes Bedtime 02/17/14 Levothyroxine Sodium 100 Mcg Tablet 100 Mcg Oral Daily 06/21/16 Lisinopril 40 Mg Tablet 40 Mg Oral Daily 05/16/16 Magnesium Hydroxide (Milk Of Magnesia) 400 Mg/5 Ml Oral.susp 30 Ml Oral Daily as needed for Constipation 1 Bottle 05/21/16 Metoprolol Tartrate 50 Mg Tablet 75 Mg Oral Twice A Day 08/24/12 Multivit-Minerals/Folic Acid (Centrum Multigummies) 80 Mcg Tab.chew 1 Tab Oral Daily 05/16/16 Polyethylene Glycol 3350 (Miralax) 119 Gm [...] (Coumadin) 5 Mg Tablet 2.5 Mg Oral Daily 06/14/15 Past Home Medications Medication Directions Ordered Status [...] Mg Oral Daily 11/16/08 Discontinued Lisinopril/Hydrochlorothiazide (Lisinopril-Hctz /.5 Tab) 1 Tab Tablet, 1 Tab Oral [...] Applicable Not Applicable Hx Substance Use No 06/21/2016 8:08pm Not Applicable Not Applicable Hx Alcohol Use No 06/21/2016 8:08pm Not Applicable Not Applicable Has the pt used tobacco in the last 12 months No 05/16/2016 6:25pm Not Applicable Not Applicable Query Response Start Date Stop Date Smoking Status Never smoker Hospital Discharge Instructions No hospital discharge instructions. Plan of Care Discharge Date 06/21/16 9:19pm Disposition 01 DISCHARGED HOME, SELF-CARE Condition at Discharge Improved Instructions/Education Provided Hip Pain (ED) Prescriptions See Medication Section Referrals KARIME NY DO Address: [address] [place] [phone] Note: MARIXA LIU MD Address: [address] [place], [place] [phone] Additional Instructions/Education You may take norco 5/325mg, 1-2 tabs every 4 -6hours as needed for pain. This medication may cause drowsiness so avoid driving, operating heavy machinery or drinking alcohol while taking. This medication may cause constipation so you may need to take a stool softener while taking. Follow with Dr. Liu or Dr. Ny as needed next week for reevaluation. Care Plan and Goals Physician Care Plan Problem: Left buttock pain post injection Goal: Follow up with primary care provider or Dr. Liu Instructions: Take medications and follow care plan as discussed/written Functional Status No functional status results. Allergies, Adverse Reactions, Alerts Allergen Type Severity Reaction Status Last Updated metoclopramide HCl Adverse Reaction Unknown AGITATED, ANXIOUS Active 06/21 Sulfa (Sulfonamide Antibiotics) Adverse Reaction Unknown STOMACH HURTS Active 05/16/16 Morphine Allergy Unknown HALLUCINATION Active 06/21/16 Hydrocodone Adverse Reaction Intermediate VOMITING Active 05/16/16 Sulfamethoxazole Adverse Reaction Unknown STOMACH HURTS Active 05/16/16 Trimethoprim Adverse Reaction Unknown STOMACH HURTS Active 05/16/16 Immunizations Query Response on File Recorded Date/Time Hx Influenza Vaccination Y DEC 2015 05/16/16 6:25pm Hx Pneumococcal Vaccination Y 201505/16/16 6:25pm Hx Influenza Vaccination Y DEC 2015 05/16/16 6:25pm Influenza Vaccine Hx DEC 2015 06/21/16 8:21pm Vital Signs Acute Vital Signs Vital Response Date/Time Temperature (Fahrenheit) 98.6 deg F (96.8 - 99.1) 06/21/2016 9:19pm Temperature (Calculated Celsius) 37.26506 degrees C (36.0 - 37.3) 06/21/2016 9:19pm Pulse Rate (adult) 80 bpm (60 - 100) 06/21/2016 9:19pm Respiratory Rate 18 breaths/min (10 - 20) 06/21/2016 9:19pm O2 Sat by Pulse Oximetry 93 % (90 - 100) 06/21/2016 9:19pm Oxygen Delivery Method Nasal Cannula 05/17/2016 8:45pm Oxygen Delivery Method Room Air 05/21/2016 5:00pm Oxygen Flow Rate 1.00 L/min 05/17/2016 8:45pm Blood Pressure 166/72 mm Hg 06/21/2016 9:19pm Blood Pressure Source Automatic Cuff 05/21/2016 5:00pm Height (Feet) 5 feet 06/21/2016 7:34pm Height (Inches) 5.00 inches 06/21/2016 7:34pm Weight (Kilograms) 81.800 kg 06/21/2016 7:34pm Body Mass Index (BMI) 30.0 06/21/2016 7:34pm Results Laboratory Results Test Name Result Units Flags Reference Collection Date/Time Result Date/ Time Comments Carcinoembryonic Antigen 89.30 UG/L D H 0-3.0 [...] Blood Count 3.29 M/MM3 L 4.00-5.20 05/21/2016 4:03am 05/21/2016 5: 10am Hemoglobin 10.3 GM/DL L 12-16 05/21/2016 4:03am 05/21/2016 5:10am Hematocrit 32.3 % L 36-46 05/21/2016 4:03am 05/21/2016 5:10am Mean Corpuscular Volume 98.2 UM3 80-100 05/21/2016 4:03am 05/21/2016 5: 10am Mean Corpuscular Hemoglobin 31.3 UUG 26-34 05/21/2016 4:03am 2016 5:10am Mean Corpuscular Hemoglobin Concent 31.9 GM/DL 31-37 05/21/2016 4:05/21/2016 5:10am RDW Standard Deviation 48.2 FL 36.9-50.2 05/21/2016 4:05/21/2016 5 :10am Platelet Count 287 T/MM3 130-400 05/21/2016 4:05/21/2016 5:10am Mean Platelet Volume 10.8 UM3 9.4-12.4 05/21/2016 4:05/21/2016 5: 10am Neutrophils (%) (Auto) 62.6 % 33-66 05/21/2016 4:05/21/2016 5: 10am Lymphocytes (%) (Auto) 17.0 % L 23-45 05/21/2016 4:05/21/2016 5: 10am Monocytes (%) (Auto) 14.7 % H 0-9.0 05/21/2016 4:05/21/2016 5:10am Eosinophils (%) (Auto) 4.1 % H 0-4 05/21/2016 4:05/21/2016 5:10am Basophils (%) (Auto) 0.3 % 0-2 05/21/2016 4:05/21/2016 5:10am Immature Granulocyte % (Auto) 1.3 % H 0.0-0.5 05/21/2016 4:2016 5:10am Absolute Neutrophils (auto) 6.0 T/MM3 1.8-7.7 05/21/2016 4:2016 5:10am Absolute Lymphocytes (auto) 1.6 T/MM3 1-4.8 05/21/2016 4:2016 5:10am Absolute Monocytes (auto) 1.4 T/MM3 H 0-0.8 05/21/2016 4:2016 5:10am Absolute Eosinophils (auto) 0.4 T/MM3 0-0.5 05/21/2016 4:2016 5:10am Absolute Basophils (auto) 0.0 T/MM3 0-0.2 05/21/2016 4:05/21/2016 5:10am Absolute Immature Granulocyte (auto 0.12 T/MM3 H 0.00-0.03 05/21/2016 4: 03am 05/21/2016 5:10am Neutrophils % (Manual) 84.0 % H [...] FOR ANTI-THROMBOSIS THERAPUTIC RANGE=2.50-3.50 FOR IMPLANTED VALVE Total Bilirubin 0.50 MG/DL 0.20-1.30 05/20/2016 4:52am 05/20/2016 5: 36am Alkaline Phosphatase 117 U/L 38-126 05/20/2016 4:52am 05/20/2016 5: 36am Total Protein 6.0 G/DL L 6.3-8.2 05/20/2016 4:52am 05/20/2016 5:36am Albumin 3.1 G/DL L 3.5-5.0 05/20/2016 4:52am 05/20/2016 5:36am Globulin 2.9 G/DL 2.4-3.6 05/20/2016 4:52am 05/20/2016 5:36am Albumin/Globulin Ratio 1.1 RATIO 1.1-2.2 05/20/2016 4:52am 05/20/2016 5 :36am Aspartate Amino Transf (AST/SGOT) 27 [...] CLEAR 05/16/2016 1:40pm 05/16/2016 1:45pm Urine Specific [place] >=1.030 H 1.015-1.025 05/16/2016 1:40pm 2016 1:45pm [...] CULT NOT INDICATED 05/16/2016 1:40pm 2016 1:52pm Icterus Index < 2 0-7 06/19/2016 9:39am 06/19/2016 10:35am Chemistry Specimen Hemolysis < 15 0-25 06/19/2016 9:39am 06/19/2016 10:35am 0-25: Specimen Exhibited No Hemolysis. Turbidity < 20 0-20 06/19/2016 9:39am 06/19/2016 10:35am Sodium Level 144 MEQ/L 134-144 06/19/2016 9:39am 06/19/2016 10:35am Potassium Level 3.8 MEQ/L 3.6-5 06/19/2016 9:39am 06/19/2016 10:35am Chloride Level 104 MEQ/L 98-107 06/19/2016 9:39am 06/19/2016 10:35am Carbon Dioxide Level 26 MEQ/L 22-30 06/19/2016 9:39am 06/19/2016 10: 35am Anion Gap 14 MEQ/L 5-15 06/19/2016 9:39am 06/19/2016 10:35am Blood Urea Nitrogen 23.0 MG/DL H 7-17 06/19/2016 9:39am 06/19/2016 10: 35am Creatinine 1.1 MG/DL 0.7-1.2 06/19/2016 9:39am 06/19/2016 10:35am BUN/Creatinine Ratio 21 RATIO 6-26 06/19/2016 9:39am 06/19/2016 10: 35am Glomerular Filtration Rate Calc 47 06/19/2016 9:39am 06/19/2016 10: 35am Glucose Level 159 MG/DL H 65-110 06/19/2016 9:39am 06/19/2016 10:35am Calculated Osmolality 284 MOSM/KG H 261-280 06/19/2016 9:39am 2016 10:35am Calcium Level 10.3 MG/DL H 8.4-10.2 06/19/2016 9:39am 06/19/2016 10: 35am Phosphorus Level 3.8 MG/DL 2.5-4.5 06/19/2016 9:39am 06/19/2016 10: 35am Magnesium Level 1.7 MG/DL 1.6-2.3 06/19/2016 9:39am 06/19/2016 10:35am Microbiology Results Procedure Source Organism/Result Collection Date/Time Result Date/Time Result Status Urine Culture Urine, Clean Catch-Midstream ESCHERICHIA COLI 04/29/2016 2: 50pm 05/01/2016 6:26am Final Procedures Procedure Status Date Provider(s) Pet image w/ct skull-thigh Completed 04/01/16 583700"FLUORODEOXYGLUCOSE F-18 FDG, DIAGNOSTIC, PER STUDY DO Completed Ct chest spine w/o dye Completed 04/03/16 Bone imaging whole body Completed 04/07/16 Bone imaging (3d) Completed 04/07/16 687999"TECHNETIUM TC-99M MEDRONATE, DIAGNOSTIC, PER STUDY DO Completed [...] Completed 05/09/16 Emergency dept visit Completed 05/09/16 420868"INJECTION, HYDROMORPHONE, UP TO 4 MG" Completed 05/09/16 752890"INJECTION, ORPHENADRINE CITRATE, UP TO 60 MG" Completed 05/09/16 634240"INJECTION, ONDANSETRON HYDROCHLORIDE, PER 1 MG" Completed 05/09/16 Routine venipuncture Completed 06/19/16 Metabolic panel total ca Completed 06/19/16 Assay of magnesium Completed 06/19/16 Assay of phosphorus Completed 06/19/16 Encounters Encounter Location Arrival/Admit Date Discharge/Depart Date Attending Provider Departed Emergency Room [facility] 06/21/16 7:24pm 06/21/16 9: 19pm CHRISTOPHE VARGAS DO Registered [facility] 06/19/16 9:32am MARIXA LIU MD Registered [facility] 05/22/16 9:18am KARIME NY DO Discharged Inpatient [facility] 05/17/16 4:12pm 05/21/16 5:22pm ERMIAS SOARES MD Discharged Recurring [facility] 05/13/16 9:15am 06/27/16 11:59pm MARIXA LIU MD Departed Emergency Room [facility] 05/09/16 11:54am 05/09/16 4: 37pm JONATHAN WALLACE DO Registered [facility] 04/29/16 2:20pm KARIME NY DO Registered [facility] 04/07/16 9:28am LOUISA BOBBY Registered [facility] 04/03/16 3:37pm KARIME NY DO Registered [facility] 04/01/16 7:03am MARIXA LIU MD Recent Diagnosis
--- OUTSIDE RECORDS SUMMARY | 2016-07-07 17:43 | XMS REPORT | Continuity of Care Document ---
Author Author [facility] Organization [facility] Address Unknown Phone Unavailable Support Name Relationship Address Phone MARIXA LIU MD Caregiver [address] [place] [address] Unavailable MAYCHRISTOPHE DO Caregiver [address] [place] [address] Unavailable KARIME NY DO Caregiver [address] [place] [address] Unavailable WILLELIZABETH Next Of Kin [address] [place] [address] Insurance Providers Guarantor ArtemioJuana L Address [address] [place], [place] [id number] Email DENIED 16 Payer Everence Policy Number [id number] Subscriber's Name Juana Oviedo Relationship 18 Self Group Number PLANE Effective Date 03 Payer Medicare Policy Number [id number] Subscriber's Name Kat Oviedojorie Astrid Relationship 18 [...] Tablet 20-40 Mg Oral Daily 05/09/16 Hydrocodone/Acetaminophen ([place] 5-325 Tablet) 5-325 Tablet 1-2 Tab Oral [...] Referrals KARIME NY DO Address: [address] [place] [phone] Note: MARIXA LIU MD Address: [address] [place], [place] [phone] Additional Instructions/Education You may take norco 5/325mg, [...] - 99.1) 06/21/2016 9:19pm Temperature (Calculated Celsius) 37.46915 degrees C (36.0 - 37.3) 06/21/2016 9:19pm [...] CLEAR 05/16/2016 1:40pm 05/16/2016 1:45pm Urine Specific [place] >=1.030 H 1.015-1.025 05/16/2016 1:40pm 2016 1:45pm [...] Provider(s) Pet image w/ct skull-thigh Completed 04/01/16 [id number]"FLUORODEOXYGLUCOSE F-18 FDG, DIAGNOSTIC, PER STUDY DO Completed X-ray exam thorac spine 3vws Completed 03/23/16 Ct chest spine w/o dye Completed 04/03/16 Bone imaging whole body Completed 04/07/16 Bone imaging (3d) Completed 04/07/16 893455"TECHNETIUM TC-99M MEDRONATE, DIAGNOSTIC, PER STUDY DO Completed [...] Completed 05/09/16 Emergency dept visit Completed 05/09/16 869355"INJECTION, HYDROMORPHONE, UP TO 4 MG" Completed 05/09/16 841610"INJECTION, ORPHENADRINE CITRATE, UP TO 60 MG" Completed 05/09/16 684648"INJECTION, ONDANSETRON HYDROCHLORIDE, PER 1 MG" Completed 05/09/16 Encounters Encounter Location Arrival/Admit Date Discharge/Depart Date Attending Provider Departed Emergency Room [facility] 06/21/16 7:24pm 06/21/16 9: 19pm CHRISTOPHE VARGAS DO Registered [facility] 06/19/16 9:32am MARIXA LIU MD Registered [facility] 05/22/16 9:18am KARIME NY DO Discharged Inpatient [facility] 05/17/16 4:12pm 05/21/16 5:22pm ERMIAS SOARES MD Registered [facility] 05/13/16 9:15am MARIXA LIU MD Departed Emergency Room [facility] 05/09/16 11:54am 05/09/16 4: 37pm JONATHAN WALLACE DO Registered [facility] 04/29/16 2:20pm KARIME NY DO [facility] 04/07/16 9:28am LOUISA BOBBY Registered [facility] 04/03/16 3:37pm KARIME NY DO [facility] 04/01/16 7:03am MARIXA LIU MD Registered [facility] 03/23/16 1:53pm KARIME NY DO Recent Diagnosis
--- OUTSIDE RECORDS SUMMARY | 2016-07-07 17:44 | XMS REPORT | Continuity of Care Document ---
Author Author [facility] Organization [facility] Address Unknown Phone Unavailable Allergies Medications [...] Procedures Code [place] [address] Office or other outpatient visit for the evaluation and management of a new patient, which requires ROD CAZARES MD 09/03/2015 53465 Office or other outpatient visit for the evaluation and management of an established patient, which ROD CAZARES MD 10/09/2015 71872 Office or other outpatient visit for the evaluation and management of an established patient, which ROD CAZARES MD 10/09/2015 64174 Office or other outpatient visit for the evaluation and management of a new patient, which requires ROD CAZARES MD 10/15/2015 81601 Office or other outpatient visit for the evaluation and management of an established patient, which ROD CAZARES MD 11/11/2015 30457 Office or other outpatient visit for the evaluation and management of an established patient, which ROD CAZARES MD 12/24/2015 Results Encounters ACCT No. Visit Date/Time Discharge Status Pt. Type Provider Facility Loc./Unit Complaint [id number] 03/23/2013 12:47:00 03/23/2013 23 :59:59 [facility] Outpatient [id number] 01/05/2013 12:51:00 01/05/2013 23 :59:59 [facility] Outpatient
--- NOTE | 2016-07-07 18:20 | NUR ---
DR DR VARGAS AT BEDSIDE.
--- OUTSIDE RECORDS SUMMARY | 2016-07-07 18:21 | XMS REPORT | Continuity of Care Document ---
Author Author [facility] Organization [facility] Address Unknown Phone Unavailable Support Name Relationship Address Phone DARWIN HOOK MD Caregiver [facility] [address] [facility] [place] [address] LOPEZ NAVARRO DO Caregiver [address] [facility] [address] [place] [address] AARON ESPARZA Caregiver [address] [place] [address] STACIE CARPIO MD Caregiver [address] [place] [address] [address] [place] [address] ELIZABETH OVIEDO Next Of Kin [address] [place] [address] Insurance Providers Payer Name Policy Number Subscriber Name Relationship Medicare [id number] Juana Oviedo 18 Self Everencemma [id number] Juana Oviedo 18 Self Advance Directives Directive [...] F (96.8 - 99.1) Temperature (Calculated Celsius) 36.26108 degrees C (36.0 - 37.3) Temperature Source [...] potentially toxic. Vitamin D, 25-Hydroxy performed at [facility] Reference Lab, [address] [place] [address] Travel Rn Lilly Aceves MD 25-Hydroxy Vitamin D2 November [...] 14, 2013 3:09pm LAB TEST FORM REQUEST [id number] - Lipase February 17, 2014 9:41pm 125 [...] Has specimen been collected/obtained? Y Urine Specific [place] February 17, 2014 9:51pm 1.020 - Has [...] completed Encounters Encounter Location Date/Time Discharged Inpatient [facility] 02/17/14 10:46pm Registered Clinic [facility] 02/01/14 9:44am Registered Clinic [facility] 12/14/13 8:46am Registered Clinic [facility] 12/07/13 8:22am Registered Clinic [facility] 11/23/13 11:01am Recent Diagnosis GI bleed Warfarin-induced coagulopathy GI bleed Hypothyroidism Chronic atrial fibrillation Pacemaker History of breast cancer Obesity (BMI 30.0-34.9) Anemia Hypertension Paroxysmal atrial fibrillation Dyslipidemia
--- OUTSIDE RECORDS SUMMARY | 2016-07-07 18:23 | XMS REPORT | Continuity of Care Document ---
Author Author [facility] Organization [facility] Address Unknown Phone Unavailable Allergies Medications [...] Procedures Code Description [place] [address] Office or other outpatient visit for the evaluation and management of a new patient, which requires ROD CAZARES MD 09/03/2015 69067 Office or other outpatient visit for the evaluation and management of an established patient, which ROD CAZARES MD 10/09/2015 99191 Office or other outpatient visit for the evaluation and management of an established patient, which ROD CAZARES MD 10/09/2015 93044 Office or other outpatient visit for the evaluation and management of a new patient, which requires ROD CAZARES MD 10/15/2015 15090 Office or other outpatient visit for the evaluation and management of an established patient, which ROD CAZARES MD 11/11/2015 24418 Office or other outpatient visit for the evaluation and management of an established patient, which ROD CAZARES MD 12/24/2015 Results Encounters ACCT No. Visit Date/Time Discharge Status Pt. Type Provider Facility Loc./Unit Complaint [id number] 03/23/2013 12:47:00 03/23/2013 23 :59:59 [facility] Outpatient [id number] 01/05/2013 12:51:00 01/05/2013 23 :59:59 [facility] Outpatient
[2016-07-07] MEDS ORDERED: CALC-747 PO (18:24)
[2016-07-07] MEDS ORDERED: LEVO75TA10 PO (18:27)
[2016-07-07] MEDS ORDERED: OMEP-122 PO (18:30)
[2016-07-07] MEDS ORDERED: ONDA4TAB10 PO (18:30)
[2016-07-07] MEDS ORDERED: DEXT15DR29 BOTH EYES (18:30)
[2016-07-07] MEDS ORDERED: NA P133E23 RECTALLY (18:31)
--- NOTE | 2016-07-07 18:33 | ERPDOC ---
Departure Disposition Decision Date: Jul 07, 2016 Disposition Decision Time: 19:15 Disposition: 01 DISCHARGED HOME, SELF-CARE Impression Impression Impression: Primary Impression: UTI (urinary tract infection) due to Enterococcus Additional Impressions: Constipation due to pain medication Metastatic breast cancer Severity: Moderate Condition: Stable Seen By: Physician only Referrals: KARIME NY DO (Family) 1 Day Patient Instructions: Urinary Tract Infection in Women (ED) Problems/Meds/Labs Reviewed?: Yes Medications reviewed and manag: Yes Additional Instructions: You have a bladder infection. Take the antibiotic as prescribed. Follow up with your doctor tomorrow to make sure that your symptoms are getting better. Follow up care ordered?: Yes Mental Status: Alert, Oriented Scripts Nitrofurantoin Monohyd/M-Cryst (Macrobid 100 mg Capsule) 100 Mg Capsule 100 MG PO BID for 7 Days, #14 CAP 0 Refills Prov: M DO 07/07/16 HPI - Fever General Chief Complaint: Fever Stated Complaint: SOA,UNABLE TO URINATE Time Seen by Provider: 18:10 Source: patient, family, RN/MD Exam Limitations: no limitations HPI - Fever Initial Comments 81yo woman presents to the ER tonight for a fever. Pt had a temp of 100.3'F earlier today; the home health nurse reported this as 103'F to pts PCM. PCM called pt this evening and told her to present to the ER. Pt has terminal BC with mets to her spine. She has numerous complaints (pain, incontinence, constipation, etc), but they are all chronic and have not changed. The home health nurse thought that the pt was altered this AM, but pt took 2 tabs of her pain medication last night (usual is one) for increasing pain; states that she had trouble thinking clearly and remembering her actions as a result of the second tablet of narcotic. 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 Associated Symptoms: dizziness, nausea/vomiting, other (Back pain) Hx of Similar Symptoms: Yes Allergies: Coded Allergies: morphine (Verified Allergy, Unknown, HALLUCINATION, 07/07/16) hydrocodone (Verified Adverse Reaction, Intermediate, VOMITING, 07/07/16) Sulfa (Sulfonamide Antibiotics) (Verified Adverse Reaction, Unknown, STOMACH HURTS, 07/07/16) metoclopramide HCl (Verified Adverse Reaction, Unknown, AGITATED, ANXIOUS , 07/07/16) sulfamethoxazole (Unverified Adverse Reaction, Unknown, STOMACH HURTS, ) trimethoprim (Unverified Adverse Reaction, Unknown, STOMACH HURTS, 07/07/16 ) Past History Patient Surgical History Cholecystectomy, 3 sections heart catheterization pacemaker placement orthopedic total repair with pin Past Medical History Metabolic: cancer, hypertension, hypothyroidism ENMT: cataracts, glaucoma, sleep apnea Cardiac: A-fib GI: GERD, gallbladder disease Female: renal insufficiency Neurological: headaches Musculoskeletal: osteoarthritis Psychological: depression Surgical History General: gallbladder, other Cardiac: cardiac cath, pacemaker Reproductive/: Family History Family PMH: FOUND: [place], diabetes, hypertension Vaccines Hx Influenza Vaccination: Yes (DEC 2015) Hx Pneumococcal Vaccination: Yes (2015) Social History Does patient use chewing tobac: No Second Hand Exposure: No Substance Use Type: does not use Marital Status: Sexuality: male partner Review of Systems Constitutional Constitutional: fever GI Upper Abdomen: nausea Lower Abdomen: constipation General: frequency, polyuria, urgency Musculoskeletal General: pain (Back) All other Systems All Other Systems: Reviewed and Negative Physical Exam General General Nourishment: well nourished, well developed, appears stated age, no acute distress, adult, obese General Body Habitus: well groomed Vitals and Pain First Documented Vital Signs Date Time Temp Pulse Resp B/P Pulse Ox O2 Delivery O2 Flow Rate FiO2 07/07/16 17:40 99.1 88 18 145/67 89 Room Air Weight: Kilograms: 85.400 Height (feet): 5 Height (inches): 3.00 Triage Pain Scale: RN VS reviewed by Provider: Yes Normal Exams: Head: Normocephalic w/o trauma Eyes: Pupils are PERRLA w/ EOMI, No scleral icterus, irritation ENMT: No facial trauma, nasal exudates, pharyngeal erythema Neck: Full range of motion, without adenopathy, JVD Lymphatic: No lymphadenopathy Musculoskeletal: No tenderness, or deformity noted Integumentary: No rashes, hives, or bruising noted Neurologic: Patient is alert, and oriented Psychiatric: Patient exhibits, appropriate attention Respiratory (brief) Respiratory: FOUND: clear all maradi[place], equal bilaterally, symmetrical, NOT FOUND : rales, wheezes Cardiovascular (brief) Cardiac: FOUND: regular rate, regular rhythm, NOT FOUND: click, gallop, murmur , pedal edema, peripheral edema, rub Capillary Refill: <2 sec Pulses: all distal extremities, equal, strong Abdomen (brief) Abdominal Brief: FOUND: bowel normo active x4, soft, NOT FOUND: distended, hepatosplenomegaly, pulsatile mass, tender Differential Diagnoses Considering: Acute Bronchitis, Cancer, Cellulitis, Diverticulitis, Mononucleosis, Pharyngitis, Pneumonia, Pyelonephritis, URI, UTI, Viral Syndrome Progress Results/Orders Orders Procedure Category Date Status Time Hemagram - Cbc No Diff LAB 07/07/16 Complete Bmp - Basic Metabolic LAB 07/07/16 Complete Panel Oxygen Administration EDM 07/07/16 Transmitted 18:10 Abdomen Acute (Inc. RAD 07/07/16 Taken Chest) 18:24 UA, LAB 07/07/16 Complete Dip&Micro(Complete) & 18:42 Urine Culture MONSTER 07/07/16 In Process 18:57 Nitrofurantoin PHA 07/07/16 Complete (Perpack) (Macrobid 19:15 Heparin Flush PHA 07/07/16 Complete (Heparin Flush) 19:30 Lab Results Laboratory Tests Test 07/07/16 18:35 07/07/16 18:42 White Blood Count 14.7T/MM3 Red Blood Count 3.12M/MM3 Hemoglobin 9.9GM/DL Hematocrit 30.9% Mean Corpuscular Volume 99.0UM3 Mean Corpuscular Hemoglobin 31.7UUG Mean Corpuscular Hemoglobin Concent 32.0GM/DL RDW Standard Deviation 63.5FL Platelet Count 206T/MM3 Mean Platelet Volume 10.1UM3 Turbidity < 20 Sodium Level 138MEQ/L Potassium Level 4.4MEQ/L Chloride Level 102MEQ/L Carbon Dioxide Level 24MEQ/L Anion Gap 12MEQ/L Blood Urea Nitrogen 25.0MG/DL Creatinine 1.7MG/DL Glomerular Filtration Rate Calc 29 BUN/Creatinine Ratio 15RATIO Glucose Level 132MG/DL Calculated Osmolality 272MOSM/KG Calcium Level 9.0MG/DL Icterus Index < 2 Chemistry Specimen Hemolysis < 15 Urine Collection Type Cleancatch-midstream Urine Color Yellow Urine Turbidity Turbid Urine pH 5.0 Urine Specific [place] 1.025 Urine Protein 2+ Urine Glucose (UA) Negative Urine Ketones Negative Urine Blood 3+ Urine Nitrite Positive Urine Bilirubin Negative Urine Urobilinogen 0.2EU/DL Urine Leukocyte Esterase 3+ Urine RBC None seen/HPF Urine WBC Tntc/HPF Urine Squamous Epithelial Cells None seen Urine Bacteria None seen Urine Culture Indicated Cult reflexed &setup Medications Current ED Medications Nitrofurantoin Macrocrystals (MACROBID (PrePack)) 1 pack O ONCE SENT HOME Last administered on 07/07/16 19:36; Start 07/07/16 at 19:15; Stop 07/07/16 at 19:16; Status DC Heparin Sodium (Porcine) (Heparin Flush) 500 unit O ONCE IV Last administered on 07/07/16 19:43; Start 07/07/16 at 19:30; Stop 07/07/16 at 19:31; Status DC Progress Progress Pt with evidence of UTI; no evidence of pyelonephritis today. Pt had a UA 3 days ago, showing E coli with sensitivity to macrobid. Will rx macrobid and recommend f/u with PCM. Discussed dx, prognosis, and tx with pt. Xray Xray #1: Xray: CXR Portable Interpretation: Normal, Interpreted by Me Xray #2: Xray: KUB Upright Interpretation: Abnormal (Constipation), Interpreted by CHRISTOPHE Lopez DO Jul 07, 2016 18:33
--- NOTE | 2016-07-07 18:35 | NUR ---
PORT ACCESS PT REQUESTS PORT BE UITLIZED FOR LAB DRAW.
[2016-07-07 18:40] LABS: HCT - HEMATOCRIT 30.9 % (36-46); HGB - HEMOGLOBIN 9.9 GM/DL (12-16); MEAN CORPUSCULAR HGB 31.7 UUG (26-34); MEAN PLATELET VOLUME 10.1 UM3 (9.4-12.4); RED BLOOD COUNT 3.12 M/MM3 (4.00-5.20); WBC - WHITE BLOOD COUNT 14.7 T/MM3 (4.5-11.0)
[2016-07-07 18:48] LABS: BLOOD, URINE 3+ (NEGATIVE); COLOR,URINE YELLOW (YELLOW); LEUKOCYTE ESTERASE ,URINE 3+ (NEGATIVE); NITRITE,URINE POSITIVE (NEGATIVE); UROBILINOGEN,URINE 0.2 EU/DL (NORMAL)
[2016-07-07 18:48] LABS: ANION GAP 12 MEQ/L (5-15); BUN/CREATININE RATIO 15 RATIO (6-26); CHLORIDE 102 MEQ/L (98-107); CO2 - CARBON DIOXIDE 24 MEQ/L (22-30); CREATININE 1.7 MG/DL (0.7-1.2); GLOMERULAR FILTRATION RATE 29; GLUCOSE 132 MG/DL (65-110); POTASSIUM 4.4 MEQ/L (3.6-5); SODIUM 138 MEQ/L (134-144)
--- NOTE | 2016-07-07 18:52 | NUR ---
XRY PT TO XRY VIA MINNIE.
[2016-07-07 18:56] LABS: WBC,URINE TNTC /HPF (0-5)
[2016-07-07 18:57] LABS: BACTERIA,URINE NONE SEEN (NEGATIVE); RBC,URINE NONE SEEN /HPF (0-3); SQUAMOUS EPITHELIAL CELL,UR NONE SEEN
[2016-07-07] MEDS ORDERED: MACROBID 100mg #2 (PrePack) SENT HOME ONE (19:15)
[2016-07-07] MEDS ORDERED: NITR100C4 PO (19:17)
--- NOTE | 2016-07-07 19:43 | NUR ---
MEDS PT GIVEN INSTRUCTION REGARDING MACROBID AND PORT FLUSH. GAVE 1ST DOSE OF MEDICATION HERE.
--- NOTE | 2016-07-07 19:45 | NUR ---
NAUSEA PT DEVELOPED NAUSEA, EMESIS BAG PROVIDED. SMALL AMOUT OF PHLEGM RETURNED.
--- NOTE | 2016-07-07 19:51 | NUR ---
DEPART ASSISTED PT TO PRIVATE VEHICLE VIA WC. RETAINED PERSONAL BELONGINGS.
[2016-07-07 21:37] VITALS: BP 144/58; PULSE 90; RESP 24; TEMP 99.4; O2SAT 96
--- NOTE | 2016-07-08 08:03 | DI ---
Indication: ITS.REASON: Fever PROCEDURE: PA view of the chest with supine and upright AP views of the abdomen Encounter: Initial Comparison: July 19, 2010 FINDINGS: The lungs are clear. There is no abnormal airspace opacity, pleural effusion or pneumothorax identified. The heart size, pulmonary vasculature and mediastinum are stable. Left cardiac pacemaker with right IJ port. There is no free air on the upright view. The bowel gas pattern is nonobstructive and nonspecific. Gas is seen in nondilated small and large bowel to the level of the rectum. Moderate stool is seen throughout the colon. Surgical suture projecting over the central abdomen. IMPRESSION: 1. No acute cardiopulmonary abnormality. 2. No evidence of acute obstruction or free air. .
== END 2016-07-07 19:51 | disposition home or self-care (01) ==
LOC: ED 17:36
DX: N39.0 Urinary tract infection, site not specified (principal); B95.2 Enterococcus as the cause of diseases classified elsewhere; K59.03 Drug induced constipation; T40.2X5A Adverse effect of other opioids, initial encounter; Y92.009 Unspecified place in unspecified non-institutional (private) residence as the place of occurrence of the external cause; C50.412 Malignant neoplasm of upper-outer quadrant of left female breast; C79.51 Secondary malignant neoplasm of bone
CPT/HCPCS: 36591; 74022; 80048; 81001; 85027; 87086; 99284; A9270; J1642

== ENCOUNTER → 2016-07-14 | Outpatient (CLI) | payer MEDICARE, OTHER ==
[~2016-07-14] MED LIST changes: -ANAS1TAB8 PO; -CALC-52 PO; +CALC-747 PO; -CYAN100T PO; +DEXT15DR29 BOTH EYES; -LATA2.5D7 BOTH EYES; -LEVO100T12 PO; +LEVO75TA10 PO; +NA P133E23 RECTALLY; +NITR100C4 PO; +OMEP-122 PO; +ONDA4TAB10 PO; -TRAM50TA4 PO
[2016-07-14 16:37] LABS: ANION GAP 13 MEQ/L (5-15); BUN/CREATININE RATIO 13 RATIO (6-26); CALCIUM 9.8 MG/DL (8.4-10.2); CHLORIDE 102 MEQ/L (98-107); CO2 - CARBON DIOXIDE 28 MEQ/L (22-30); CREATININE 1.4 MG/DL (0.7-1.2); GLOMERULAR FILTRATION RATE 36; GLUCOSE 94 MG/DL (65-110); MAGNESIUM 2.3 MG/DL (1.6-2.3); PHOSPHORUS 3.1 MG/DL (2.5-4.5); POTASSIUM 3.7 MEQ/L (3.6-5); SODIUM 143 MEQ/L (134-144)
== END ==
LOC: LABN.NHH 16:23 → LABN 16:23
PROVIDERS: ATTEND Internal Medicine Medical Oncology
DX: C79.51 Secondary malignant neoplasm of bone (principal)
CPT/HCPCS: 80048; 83735; 84100

== ENCOUNTER 2016-07-23 10:17 | Emergency (ER) | payer MEDICARE, OTHER ==
[~2016-07-23] VITALS: Ht 160 cm; Wt 83.9 kg
[~2016-07-23 10:17] MED LIST changes: -TRAM50TA4 PO
--- OUTSIDE RECORDS SUMMARY | 2016-07-23 10:21 | XMS REPORT | Continuity of Care Document ---
Author Author [facility] Organization [facility] Address Unknown Phone Unavailable Support Name Relationship Address Phone DARWIN HOOK MD Caregiver [facility] [address] [facility] [facility] [place] [address] LOPEZ NAVARRO DO Caregiver [address] [place] [address] AARON ESPARZA Caregiver [address] [place] [address] STACIE CARPIO MD Caregiver [address] [place] [address] [address] [place] [address] ELIZABETH OVIEDO Next Of Kin [address] [place] [id number] Insurance Providers Payer Name Policy Number Subscriber Name Relationship Medicare [id number] Juana Oviedo 18 Self [place] [id number] Juana Oviedo 18 Self Advance Directives Directive [...] F (96.8 - 99.1) Temperature (Calculated Celsius) 36.14835 degrees C (36.0 - 37.3) Temperature Source [...] potentially toxic. Vitamin D, 25-Hydroxy performed at [facility], [address] [place] [address] Magnetic Prospector Lilly Aceves MD 25-Hydroxy Vitamin D2 November [...] 14, 2013 3:09pm LAB TEST FORM REQUEST [id number] - Lipase February 17, 2014 9:41pm 125 [...] Has specimen been collected/obtained? Y Urine Specific [place] February 17, 2014 9:51pm 1.020 - Has [...] completed Encounters Encounter Location Date/Time Discharged Inpatient [facility] 02/17/14 10:46pm Registered Clinic [facility] 02/01/14 9:44am Registered Clinic [facility] 12/14/13 8:46am Registered Clinic [facility] 12/07/13 8:22am Registered Clinic [facility] 11/23/13 11:01am Recent Diagnosis GI bleed Warfarin-induced coagulopathy GI bleed Hypothyroidism Chronic atrial fibrillation Pacemaker History of breast cancer Obesity (BMI 30.0-34.9) Anemia Hypertension Paroxysmal atrial fibrillation Dyslipidemia
--- OUTSIDE RECORDS SUMMARY | 2016-07-23 10:24 | XMS REPORT | Continuity of Care Document ---
Author Author [facility] Organization [facility] Address Unknown Phone Unavailable Allergies [...] Procedures Code [place] [address] Office or other outpatient visit for the evaluation and management of a new patient, which requires ROD CAZARES MD 09/03/2015 13022 Office or other outpatient visit for the evaluation and management of an established patient, which ROD CAZARES MD 10/09/2015 94154 Office or other outpatient visit for the evaluation and management of an established patient, which ROD CAZARES MD 10/09/2015 62532 Office or other outpatient visit for the evaluation and management of a new patient, which requires ROD CAZARES MD 10/15/2015 53752 Office or other outpatient visit for the evaluation and management of an established patient, which ROD CAZARES MD 11/11/2015 72176 Office or other outpatient visit for the evaluation and management of an established patient, which ROD CAZARES MD 12/24/2015 Results Encounters ACCT No. Visit Date/Time Discharge Status Pt. Type Provider Facility Loc./Unit Complaint [id number] 03/23/2013 12:47:00 03/23/2013 23 :59:59 [facility] Outpatient [id number] 01/05/2013 12:51:00 01/05/2013 23 :59:59 [facility] Outpatient
--- OUTSIDE RECORDS SUMMARY | 2016-07-23 10:26 | XMS REPORT | Continuity of Care Document ---
Author Author Organization Address Unknown Phone Unavailable Support Name Relationship Address Phone JULY, CHRISTOPHE M DO Caregiver [address] [place] [address] Unavailable KARIME NY DO Caregiver [address] [place] [address] Unavailable ELIZABETH OVIEDO Next Of Kin [address] [place] [address] Insurance Providers Guarantor ArtemioJuana L Address [address] [place] [address] Email DENIED 16 Payer Everence Policy Number [id number] Subscriber's Name Kat Oviedojorijay jay Resendiz Relationship 18 Self Group Number PLANE Effective Date 03 Payer Medicare Policy Number [id number] Subscriber's Name Juana Oviedo Astrid Relationship 18 Self Effective Date 98 Advance Directives Directive Response Recorded Date/Time Advanced Directives Type DNR Documentation DPOA for Healthcare 07/07/16 5:40pm Chief Complaint and Reason for Visit Chief Complaint Fever Reason for Visit Constipation due to pain medication [id number] Problems Active Problems Medical Problem Onset Date [...] Problem Onset Date Anemia Unknown Colitis Unknown Constipation due to pain medication Unknown Contusion Unknown Degenerative arthritis of right knee Unknown GI bleed Unknown GI bleed Unknown Hematoma of leg Unknown Left buttock pain Unknown Metastatic breast cancer Unknown Neck pain on left side Unknown Paroxysmal atrial fibrillation Unknown UTI (urinary tract infection) due to Enterococcus Unknown Warfarin-induced coagulopathy Unknown Medications Current Home Medications Medication Dose Units Route Directions Days Qty Instructions Start Date Beta-Carotene(A) W-C & E/Min (Vision Vitamins) 1 Each Tablet 1 Tab Oral Twice A Day 05/16/16 Bisacodyl 10 Mg Supp.rect 10 Mg Rectally Daily as needed for Constipation 1 Bottle 05/21/16 Calcium Carbonate/Vitamin D3 (Calcium 600 + Vit D 400 Tablet) 1 Each Tablet 1 Tab Oral Daily 07/07/16 Dextran/Hypromellose/Glycerin (Genteal Tears 0.1%-0.2%-0.3%) 15 Ml Drops 1 Drop Both Eyes As Needed 07/07/16 Docusate Sodium (Colace) 100 Mg Capsule 100 Mg Oral Daily as needed for Constipation 05/16/16 Furosemide 20 Mg Tablet 20-40 Mg Oral Daily 05/09/16 Hydrocodone/Acetaminophen ([place] 5-325 Tablet) 5-325 Tablet 1-2 Tab Oral Every 4-6 Hours Prn as needed for Pain 20 Tablet 06/21/16 Levothyroxine Sodium 75 Mcg Tablet 75 Mcg Oral Daily 07/07/16 Lisinopril 40 Mg Tablet 40 Mg Oral Daily 05/16/16 Magnesium Hydroxide (Milk Of Magnesia) 400 Mg/5 Ml Oral.susp 30 Ml Oral Daily as needed for Constipation 1 Bottle 05/21/16 Metoprolol Tartrate 50 Mg Tablet 75 Mg Oral Twice A Day 08/24/12 Multivit-Minerals/Folic Acid (Centrum Multigummies) 80 Mcg Tab.chew 1 Tab Oral Daily 05/16/16 Na Phos,M-B/Na Phos,Di-Ba (Fleet Enema) 133 Ml Enema 1 Enema Rectally Onetime 07/07/16 Nitrofurantoin Monohyd/M-Cryst (Macrobid 100 Mg Capsule) 100 Mg Capsule 100 Mg Oral Twice A Day 7 Days 14 Capsule 07/07/16 Omeprazole 20 Mg Tablet.dr 20 Mg Oral Before Breakfast 07/07/16 Ondansetron (Ondansetron Odt) 4 Mg Tab.rapdis 4 Mg Oral Four Times Daily as needed for Nausea 07/07/16 Polyethylene Glycol 3350 (Miralax) 119 Gm Powder 17 G Oral Daily as needed for Constipation 05/16/16 Pravastatin Sodium 80 Mg Tablet 80 Mg Oral Bedtime 05/16/16 Ubidecarenone (Co Q-10) 200 Mg Capsule 200 Mg Oral Daily 08/24/12 Verapamil Hcl 360 Mg Capsule 360 Mg Oral Bedtime 06/14/15 Warfarin Sodium (Coumadin) 5 Mg Tablet 2.5 Mg Oral Every Wednesday, Wednesday, Wednesday, Wednesday, Wednesday, And Wednesday06/14/15 Past Home Medications Medication Directions Ordered Status [...] Mg Oral Daily 11/16/08 Discontinued Lisinopril/Hydrochlorothiazide (Lisinopril-Hctz 10/.5 Tab) 1 Tab Tablet, 1 Tab Oral [...] Applicable Not Applicable Hx Substance Use No 07/07/2016 7:00pm Not Applicable Not Applicable Hx Alcohol Use No 07/07/2016 7:00pm Not Applicable Not Applicable Has the pt used tobacco in the last 12 months No 05/16/2016 6:25pm Not Applicable Not Applicable Query Response Start Date Stop Date Smoking Status Never smoker Hospital Discharge Instructions No hospital discharge instructions. Plan of Care Discharge Date 07/07/16 7:51pm Disposition 01 DISCHARGED HOME, SELF-CARE Condition at Discharge Stable Instructions/Education Provided Urinary Tract Infection in Women (ED) Prescriptions See Medication Section Referrals KARIME NY DO Order Date: Address: [address] [phone] Note: Additional Instructions/Education You have a bladder infection. Take the antibiotic as prescribed. Follow up with your doctor tomorrow to make sure that your symptoms are getting better. Care Plan and Goals Physician Care Plan Problem: UTI Goal: Follow up with primary care provider Instructions: Take medications and follow care plan as discussed/written Functional Status No functional status results. Allergies, Adverse Reactions, Alerts Allergen Type Severity Reaction Status Last Updated metoclopramide HCl Adverse Reaction Unknown AGITATED, ANXIOUS Active 07/07 Sulfa (Sulfonamide Antibiotics) Adverse Reaction Unknown STOMACH HURTS Active 07/07/16 Morphine Allergy Unknown HALLUCINATION Active 07/07/16 Hydrocodone Adverse Reaction Intermediate VOMITING Active 07/07/16 Sulfamethoxazole Adverse Reaction Unknown STOMACH HURTS Active 07/07/16 Trimethoprim Adverse Reaction Unknown STOMACH HURTS Active 07/07/16 Immunizations Query Response on File Recorded Date/Time Hx Influenza Vaccination Y DEC 2015 05/16/16 6:25pm Hx Pneumococcal Vaccination Y 201505/16/16 6:25pm Hx Influenza Vaccination Y DEC 2015 05/16/16 6:25pm Influenza Vaccine Hx DEC 2015 07/07/16 7:00pm Vital Signs Acute Vital Signs Vital Response Date/Time Temperature (Fahrenheit) 99.4 deg F (96.8 - 99.1) 07/07/2016 9:37pm Temperature (Calculated Celsius) 37.95719 degrees C (36.0 - 37.3) 07/07/2016 9:37pm Pulse Rate (adult) 90 bpm (60 - 100) 07/07/2016 9:37pm Respiratory Rate 24 breaths/min (10 - 20) 07/07/2016 9:37pm O2 Sat by Pulse Oximetry 96 % (90 - 100) 07/07/2016 9:37pm Oxygen Delivery Method Nasal Cannula 05/17/2016 8:45pm Oxygen Delivery Method Room Air 05/21/2016 5:00pm Oxygen Flow Rate 1.00 L/min 05/17/2016 8:45pm Blood Pressure 144/58 mm Hg 07/07/2016 9:37pm Blood Pressure Source Automatic Cuff 05/21/2016 5:00pm Height (Feet) 5 feet 07/07/2016 5:40pm Height (Inches) 3.00 inches 07/07/2016 5:40pm Weight (Kilograms) 85.400 kg 07/07/2016 5:40pm Body Mass Index (BMI) 33.0 07/07/2016 5:40pm Results Laboratory Results Test Name Result Units Flags Reference Collection Date/Time Result Date/ Time Comments Vitamin B12 Level 750 PG/ML [id number] 04/29/2016 [...] by subsequent Troponin value, multiplied by 100) Neutrophils (%) (Auto) 62.6 % 33-66 05/21/2016 4:03am 05/21/2016 5: 10am Lymphocytes (%) (Auto) 17.0 % L 23-45 05/21/2016 4:03am 05/21/2016 5: 10am Monocytes (%) (Auto) 14.7 % H 0-9.0 05/21/2016 4:03am 05/21/2016 5:10am Eosinophils (%) (Auto) 4.1 % H 0-4 05/21/2016 4:03am 05/21/2016 5:10am Basophils (%) (Auto) 0.3 % 0-2 05/21/2016 4:03am 05/21/2016 5:10am Immature Granulocyte % (Auto) 1.3 % H 0.0-0.5 05/21/2016 4:03am 2016 5:10am Absolute Neutrophils (auto) 6.0 T/MM3 1.8-7.7 05/21/2016 4:03am 2016 5:10am Absolute Lymphocytes (auto) 1.6 T/MM3 1-4.8 05/21/2016 4:03am 2016 5:10am Absolute Monocytes (auto) 1.4 T/MM3 H [...] sepsis or septic shock highly indicated. Urine Mucus PRESENT 05/16/2016 1:40pm 05/16/2016 1:52pm Urine Hyaline Casts 1-3 /LPF 05/16/2016 1:40pm 05/16/2016 1:52pm Phosphorus Level 3.8 MG/DL 2.5-4.5 06/19/2016 9:39am 06/19/2016 10: 35am Magnesium Level 1.7 MG/DL 1.6-2.3 06/19/2016 9:39am 06/19/2016 10:35am Carcinoembryonic Antigen 168.00 UG/L D H 0-3.0 07/03/2016 8:34am 2016 9:26am CA 27.29 203.07 U/ML H 0-37.7 07/03/2016 8:34am 07/03/2016 9:32am White Blood Count 14.7 T/MM3 H 4.5-11.0 07/07/2016 6:35pm 07/07/2016 6: 40pm Red Blood Count 3.12 M/MM3 L 4.00-5.20 07/07/2016 6:35pm 07/07/2016 6: 40pm Hemoglobin 9.9 GM/DL L 12-16 07/07/2016 6:35pm 07/07/2016 6:40pm Hematocrit 30.9 % L 36-46 07/07/2016 6:35pm 07/07/2016 6:40pm Mean Corpuscular Volume 99.0 UM3 80-100 07/07/2016 6:35pm 07/07/2016 6: 40pm Mean Corpuscular Hemoglobin 31.7 UUG 26-34 07/07/2016 6:35pm 2016 6:40pm Mean Corpuscular Hemoglobin Concent 32.0 GM/DL 31-37 07/07/2016 6:35pm 07/07/2016 6:40pm RDW Standard Deviation 63.5 FL H 36.9-50.2 07/07/2016 6:35pm 07/07/2016 6:40pm Platelet Count 206 T/MM3 130-400 07/07/2016 6:35pm 07/07/2016 6:40pm Mean Platelet Volume 10.1 UM3 9.4-12.4 07/07/2016 6:35pm 07/07/2016 6: 40pm Icterus Index < 2 0-7 07/07/2016 6:35pm 07/07/2016 6:48pm Chemistry Specimen Hemolysis < 15 0-25 07/07/2016 6:35pm 07/07/2016 6 :48pm 0-25: Specimen Exhibited No Hemolysis. Turbidity < 20 0-20 07/07/2016 6:35pm 07/07/2016 6:48pm Sodium Level 138 MEQ/L 134-144 07/07/2016 6:35pm 07/07/2016 6:48pm Potassium Level 4.4 MEQ/L 3.6-5 07/07/2016 6:35pm 07/07/2016 6:48pm Chloride Level 102 MEQ/L 98-107 07/07/2016 6:35pm 07/07/2016 6:48pm Carbon Dioxide Level 24 MEQ/L 22-30 07/07/2016 6:35pm 07/07/2016 6: 48pm Anion Gap 12 MEQ/L 5-15 07/07/2016 6:35pm 07/07/2016 6:48pm Blood Urea Nitrogen 25.0 MG/DL H 7-17 07/07/2016 6:35pm 07/07/2016 6: 48pm Creatinine 1.7 MG/DL H 0.7-1.2 07/07/2016 6:35pm 07/07/2016 6:48pm BUN/Creatinine Ratio 15 RATIO 6-07/07/2016 6:35pm 07/07/2016 6:48pm Glomerular Filtration Rate Calc 29 07/07/2016 6:35pm 07/07/2016 6: 48pm Glucose Level 132 MG/DL H 65-110 07/07/2016 6:35pm 07/07/2016 6:48pm Calculated Osmolality 272 MOSM/KG 261-280 07/07/2016 6:35pm 07/07/2016 6:48pm Calcium Level 9.0 MG/DL 8.4-10.2 07/07/2016 6:35pm 07/07/2016 6:48pm Urine Collection Type CLEANCATCH-MIDSTREAM 07/07/2016 6:42pm 2016 6:48pm Urine Color YELLOW YELLOW 07/07/2016 6:42pm 07/07/2016 6:48pm Urine Turbidity TURBID CLEAR 07/07/2016 6:42pm 07/07/2016 6:48pm Urine Specific Ramona 1.025 1.015-1.025 07/07/2016 6:42pm 2016 6:48pm Urine pH 5.0 5.0-8.0 07/07/2016 6:42pm 07/07/2016 6:48pm Urine Leukocyte Esterase 3+ A NEGATIVE 07/07/2016 6:42pm 07/07/2016 6: 48pm Urine Nitrite POSITIVE A NEGATIVE 07/07/2016 6:42pm 07/07/2016 6:48pm Urine Protein 2+ A NEGATIVE 07/07/2016 6:42pm 07/07/2016 6:48pm Urine Glucose (UA) NEGATIVE NEGATIVE 07/07/2016 6:42pm 07/07/2016 6: 48pm Urine Ketones NEGATIVE NEGATIVE 07/07/2016 6:42pm 07/07/2016 6:48pm Urine Urobilinogen 0.2 EU/DL NORMAL 07/07/2016 6:42pm 07/07/2016 6: 48pm Urine Bilirubin NEGATIVE NEGATIVE 07/07/2016 6:42pm 07/07/2016 6: 48pm Urine Blood 3+ A NEGATIVE 07/07/2016 6:42pm 07/07/2016 6:48pm Urine WBC TNTC /HPF H 0-5 07/07/2016 6:42pm 07/07/2016 6:57pm Urine RBC NONE SEEN /HPF 0-3 07/07/2016 6:42pm 07/07/2016 6:57pm Urine Squamous Epithelial Cells NONE SEEN 07/07/2016 6:42pm 2016 6:57pm Urine Bacteria NONE SEEN NEGATIVE 07/07/2016 6:42pm 07/07/2016 6: 57pm Urine Culture Indicated CULT REFLEXED &SETUP 07/07/2016 6:42pm 6:57pm Microbiology Results Procedure Source Organism/Result Collection Date/Time Result Date/Time Result Status Urine Culture Urine, Clean Catch-Midstream CULTURE INITIATED - RESULTS PENDING 07/07/2016 6:57pm 07/07/2016 6:58pm Preliminary Procedures Procedure Status Date Provider(s) Routine venipuncture Completed 05/13/16 Comprehen metabolic panel Completed 05/13/16 Carcinoembryonic antigen Completed 05/13/16 Immunoassay tumor ca 15-3 Completed 05/13/16 Routine venipuncture Completed 04/29/16 Chest x-ray 2vw [...] Completed 05/09/16 Emergency dept visit Completed 05/09/16 330951"INJECTION, HYDROMORPHONE, UP TO 4 MG" Completed 05/09/16 832012"INJECTION, ORPHENADRINE CITRATE, UP TO 60 MG" Completed 05/09/16 179144"INJECTION, ONDANSETRON HYDROCHLORIDE, PER 1 MG" Completed 05/09/16 Routine venipuncture Completed 06/19/16 Metabolic panel total ca Completed 06/19/16 Assay of magnesium Completed 06/19/16 Assay of phosphorus Completed 06/19/16 Ther/proph/diag inj sc/im Completed 06/21/16 Emergency dept visit Completed 06/21/16 382008"INJECTION, HYDROMORPHONE, UP TO 4 MG" Completed 06/21/16 Encounters Encounter Location Arrival/Admit Date Discharge/Depart Date Attending Provider Departed Emergency Room 07/07/16 5:36pm 07/07/16 7: 51pm CHRISTOPHE VARGAS DO [facility] 07/04/16 8:30am ANISHA ISAAC APRN Registered [facility] 07/03/16 8:25am MARIXA LIU MD Departed Emergency Room 06/21/16 7:24pm 06/21/16 9: 19pm CHRISTOPHE VARGAS DO Registered [facility] 06/19/16 9:32am MARIXA LIU MD Registered [facility] 05/22/16 9:18am KARIME NY DO Discharged Inpatient 05/17/16 4:12pm 05/21/16 5:22pm ERMIAS SOARES MD Discharged Recurring 05/13/16 9:15am 06/27/16 11:59pm MARIXA LIU MD Departed Emergency Room 05/09/16 11:54am 05/09/16 4: 37pm JONATHAN WALLACE DO Registered Clinic 04/29/16 2:20pm KARIME NY DO Recent Diagnosis
[2016-07-23 10:35] VITALS: TEMP 97.8; Ht 160 cm; Wt 83.9 kg
[2016-07-23] MEDS ORDERED: TRAM50TA4 PO (10:49)
--- NOTE | 2016-07-23 10:57 | NUR ---
XRY AT BEDSIDE FOR PORTABLE FILMS.
--- NOTE | 2016-07-23 11:05 | NUR ---
DR MAY AT BEDSIDE TO SEE PT.
--- OUTSIDE RECORDS SUMMARY | 2016-07-23 11:05 | XMS REPORT | Continuity of Care Document ---
Author Author [facility] Organization [facility] Address Unknown Phone Unavailable Support Name Relationship Address Phone DARWIN HOOK MD Caregiver [facility] [address] [place] [address] LOPEZ NAVARRO DO Caregiver [address] [place] [address] AARON ESPARZA Caregiver [address] [place] [address] STACIE CARPIO MD Caregiver [address] [place] [address] [address] [address] ELIZABETH OVIEDO Next Of Kin [address] [place] [address] Insurance Providers Payer Name Policy Number Subscriber Name Relationship Medicare [id number] Juana Oviedo 18 Self Everencemma [id number] Juana Oviedo 18 Self Advance Directives Directive [...] F (96.8 - 99.1) Temperature (Calculated Celsius) 36.43333 degrees C (36.0 - 37.3) Temperature Source [...] potentially toxic. Vitamin D, 25-Hydroxy performed at [facility] Reference Lab, [address] [place] [address] Shovel Logger Lilly Aceves MD 25-Hydroxy Vitamin D2 November [...] 14, 2013 3:09pm LAB TEST FORM REQUEST [id number] - Lipase February 17, 2014 9:41pm 125 [...] Has specimen been collected/obtained? Y Urine Specific Pala February 17, 2014 9:51pm 1.020 - Has [...] completed Encounters Encounter Location Date/Time Discharged Inpatient [facility] 02/17/14 10:46pm Registered Clinic [facility] 02/01/14 9:44am Registered Clinic [facility] 12/14/13 8:46am Registered Clinic [facility] 12/07/13 8:22am Registered Clinic [facility] 11/23/13 11:01am Recent Diagnosis GI bleed Warfarin-induced coagulopathy GI bleed Hypothyroidism Chronic atrial fibrillation Pacemaker History of breast cancer Obesity (BMI 30.0-34.9) Anemia Hypertension Paroxysmal atrial fibrillation Dyslipidemia
--- OUTSIDE RECORDS SUMMARY | 2016-07-23 11:07 | XMS REPORT | Continuity of Care Document ---
Author Author [facility] Organization [facility] Address Unknown Phone Unavailable Allergies Medications Medication [...] Procedures Code [place] [address] Office or other outpatient visit for the evaluation and management of a new patient, which requires ROD CAZARES MD 09/03/2015 83706 Office or other outpatient visit for the evaluation and management of an established patient, which ROD CAZARES MD 10/09/2015 89642 Office or other outpatient visit for the evaluation and management of an established patient, which ROD CAZARES MD 10/09/2015 38382 Office or other outpatient visit for the evaluation and management of a new patient, which requires ROD CAZARES MD 10/15/2015 78470 Office or other outpatient visit for the evaluation and management of an established patient, which ROD CAZARES MD 11/11/2015 94522 Office or other outpatient visit for the evaluation and management of an established patient, which ROD CAZARES MD 12/24/2015 Results Encounters ACCT No. Visit Date/Time Discharge Status Pt. Type Provider Facility Loc./Unit Complaint [id number] 03/23/2013 12:47:00 03/23/2013 23 :59:59 [facility] Outpatient [id number] 01/05/2013 12:51:00 01/05/2013 23 :59:59 [facility] Outpatient
--- NOTE | 2016-07-23 11:13 | DI ---
EXAM: FOOT RIGHT 3 VIEWS COMPARISON: None available. HISTORY: ITS.REASON: Abrupt foot pain in CA ptn . FINDINGS: There is generalized osteopenia. Plantar calcaneal spurring. There is no evidence for acute fracture, subluxation, or dislocation. IMPRESSION: No evidence for acute fracture identified. LOCATION OF DICTATION: [facility] .
--- NOTE | 2016-07-23 11:34 | ERPDOC ---
Departure Disposition Decision Date: July 23, 2016 Disposition Decision Time: 11:37 Disposition: 01 DISCHARGED HOME, SELF-CARE Impression Impression Impression: Primary Impression: Foot pain, right Severity: Moderate Condition: Stable Seen By: Physician only Referrals: KARIME NY DO (Family) 1 Week Patient Instructions: Leg Pain (ED) Problems/Meds/Labs Reviewed?: Yes Medications reviewed and manag: Yes Additional Instructions: You have pain in your foot. It is not broken or sprained. Continue to take your tramadol, as you have been, for pain. Follow up with your doctor in the next week for further evaluation of your foot pain. Follow up care ordered?: Yes Mental Status: Alert, Oriented HPI General Chief Complaint: Lower Extremity Pain Stated Complaint: FOOT PAIN RIGHT FOOT Time Seen by Provider: 10:43 Source: patient Exam Limitations: no limitations HPI Foot/Ankle Initial Comments 81yo woman presents to the ER today with 5 days of foot pain. Pt has not felt right in that foot for five days; yesterday, pain became severe and she could not tolerate walking on the foot. Pt has a h/o CA with bone mets to spine; home health NRS recommended that she present to ER today. Occurred At: home Onset: Rapid Duration: other Pain Scale: Now & Worst: 8/10 Severity: severe Location: right: foot 1 - Pain Method of Injury: unknown Modifying Factors: IMPROVES WITH: cold therapy, immobilization, pain medication , WORSE WITH: jarring, movement Associated Symptoms: pain with standing, DENIES: bruising, redness, swelling Allergies: Coded Allergies: morphine (Verified Allergy, Unknown, HALLUCINATION, 07/23/16) hydrocodone (Verified Adverse Reaction, Intermediate, VOMITING, 07/23/16) Sulfa (Sulfonamide Antibiotics) (Verified Adverse Reaction, Unknown, STOMACH HURTS, 07/23/16) metoclopramide HCl (Verified Adverse Reaction, Unknown, AGITATED, ANXIOUS , 07/23/16) sulfamethoxazole (Unverified Adverse Reaction, Unknown, STOMACH HURTS, 01/29) trimethoprim (Unverified Adverse Reaction, Unknown, STOMACH HURTS, 07/23/16 ) Past History Patient Surgical History Cholecystectomy, 3 sections heart catheterization pacemaker placement orthopedic total repair with pin Past Medical History Metabolic: cancer, hypertension, hypothyroidism ENMT: cataracts, glaucoma, sleep apnea Cardiac: A-fib GI: GERD, gallbladder disease Female: renal insufficiency Neurological: headaches Musculoskeletal: osteoarthritis Psychological: depression Surgical History General: gallbladder, other Cardiac: cardiac cath, pacemaker Reproductive/: Family History Family PMH: FOUND: [place], diabetes, hypertension Vaccines Hx Influenza Vaccination: Yes (DEC 2015) Hx Pneumococcal Vaccination: Yes (2016) Social History Does patient use chewing tobac: No Second Hand Exposure: No Substance Use Type: does not use Marital Status: Sexuality: male partner Review of Systems Musculoskeletal General: pain All other Systems All Other Systems: Reviewed and Negative Exam General General Nourishment: well nourished, well developed, appears stated age, no acute distress, adult, obese General Body Habitus: well groomed Vital Signs: RN Vital Signs have been reviewed: Yes, Temperature: 97.8, Source : Temporal, Heart Rate: 94, Respiratory Rate: 18, BP: 172/72, Pulse Oximetry: 95 Height (Feet): 5 Height (Inches): 3.00 Fastrak Foot/Ankle Foot/Ankle : Leg: Right Leg: NOT FOUND: contusion, discoloration, swelling, tender Ankle: tender mid foot, NOT FOUND: achilles tendon insertion, anterior drawer sign, decreased ROM, deformity, ecchymosis, foot drop, numbness, swelling , tender lat. foot, tender lat. malleolus, tender med. malleolus, weakness Foot: NOT FOUND: atrophy, deformity, discoloration, numbness, swelling, tender 1st MTP joint, tender plantar fascia Toes: cap refill <2 sec ea toe, NOT FOUND: decreased ROM, nail avulsion, subungual hematoma Posterior Tibial Pulse: 2+ Dorsalis Pedis Pulse: 2+ Neurologic RN Documented GCS Eye Opening: Verbal: Motor: Total: Supervisory Exam Head: atraumatic Eyes: PERRL Nares: no exudate Neck: trachea midline Chest: symmetric Abdomen: non-distended Neurological: no abnormal movements Skin: pink, dry Psychological: alert Differential Diagnoses Considering: Contusion, Dislocation, Fracture, Sprain, Strain Progress Results/Orders Orders Procedure Category Date Status Time Foot Right 3 Views RAD 07/23/16 Resulted 10:43 Progress Progress Pt with unspecified medial malleolar and midfoot pain. No evidence for fx, dislocation, or sprain on PE or rads. Discussed lack of definitive dx, prognosis , or tx plan, but need for f/u with PCM with pt, who voiced understanding. Cont to take tramadol prn for pain. F/u with PCM. Xray Xray : Xray: Foot R Interpretation: Normal, Reviewed Written Report JULYCHRISTOPHE DO July 23, 2016 11:34
--- NOTE | 2016-07-23 11:40 | NUR ---
DR VARGAS AT BEDSIDE TALKING WITH PT. PLAN FOR DISMISSAL.
[2016-07-23 12:05] VITALS: BP 162/65; PULSE 85; RESP 18; O2SAT 93
--- NOTE | 2016-07-23 12:05 | NUR ---
DISMISSAL INSTRUCTIONS GIVEN/REVIEWED WITH PT AND SPOUSE. VERBALIZE UNDERSTANDING. PT ASSISTED TO BATHROOM PRIOR TO LEAVING DEPT.
== END 2016-07-23 12:05 | disposition home or self-care (01) ==
LOC: ED 10:17
DX: M79.671 Pain in right foot (principal)

== ENCOUNTER → 2016-07-23 | Outpatient (CLI) | payer MEDICARE, OTHER ==
[~2016-07-23] MED LIST changes: +TRAM50TA4 PO
--- NOTE | 2016-07-24 08:18 | DI ---
Indication: ITS.REASON: C79.51 Secondary malignant neoplasm of bone CT LIMITED, OR LOCALIZED F/U: Comparison: 05/16/2016 CT abdomen pelvis previous CT chest 01/17/2016 Technique: Patient scanned from the neck down through the abdomen without contrast with reformatted coronal and sagittal image planes. Findings: Degenerative changes are seen in the cervical spine. No pathologic adenopathy or marked soft tissue masses were seen. Imaging into the chest shows some small superior mediastinal lymph nodes none of which are enlarged. Patient shows a right-sided pleural effusion reformatted imaging shows a compression deformity of T5 and minimally at T6 with minimal wedging of T8 and T11. There is questionable subtle bony rarefaction about the seventh rib on the right at its difficult to tell for certain. Liver, spleen, biliary tree and pancreas were grossly normal. The kidneys showed moderate obstructive changes bilaterally. Gallbladder is surgically absent. Degenerative changes are present within the spine. Impression: 1. Right-sided small pleural effusion. 2. Degenerative changes throughout the cervical, thoracic and upper lumbar region with compression deformity most prominent at T5 with mild compressions as described at T6, T8 and T11 levels. 3. Upper abdomen showed no obvious soft tissue abnormality. .
== END ==
LOC: IMA 13:08
PROVIDERS: ATTEND Radiology Radiation Oncology
DX: C79.51 Secondary malignant neoplasm of bone (principal); J90 Pleural effusion, not elsewhere classified; M43.8X4 Other specified deforming dorsopathies, thoracic region; M47.894 Other spondylosis, thoracic region